=== PATIENT | male | born 1950 | race Caucasian/White ===

== ENCOUNTER → 2018-05-07 08:22 | Outpatient (CLI) | payer MEDICARE, OTHER, SELFPAY ==
[2018-05-07 10:17] LABS: Anion Gap 7 (5-15); BUN 9 mg/dL (7-18); Calcium,Total 8.6 mg/dL (8.5-10.1); Chloride 108 mmol/L (98-107); Cholesterol 149 mg/dL (200); EST Glomerular Filtration Rate 89 mL/min (>60); Est Glom Filt Rate - Afr Amer 108 mL/min (>60); Glucose 77 mg/dL (74-106); High Density Lipoprotein 71 mg/dL; Potassium 4.1 mmol/L (3.5-5.1); Sodium Level 140 mmol/L (136-145); Triglycerides 139 mg/dL; Uric Acid 4.2 mg/dL (3.5-7.2); Very Low Density Lipoprotein 28 mg/dL (5-40)
== END ==
PROVIDERS: Family Provider Family Medicine; PCP Family Medicine; Visit Provider Family Medicine
DX: I10 Essential (primary) hypertension (principal); E78.00 Pure hypercholesterolemia, unspecified; M10.9 Gout, unspecified
CPT/HCPCS: 36415; 80048; 80061; 84550

== ENCOUNTER → 2019-05-19 08:33 | Outpatient (CLI) | payer MEDICARE, OTHER, SELFPAY ==
[2019-05-19 11:22] LABS: Anion Gap 7 (5-15); BUN 12 mg/dL (7-18); Calcium,Total 8.9 mg/dL (8.5-10.1); Chloride 106 mmol/L (98-107); Cholesterol 156 mg/dL (200); EST Glomerular Filtration Rate 79 mL/min (>60); Est Glom Filt Rate - Afr Amer 95 mL/min (>60); Glucose 87 mg/dL (74-106); High Density Lipoprotein 63 mg/dL; PSA,Total - Annual Screen 0.66 ng/mL (0.00-4.00); Sodium Level 141 mmol/L (136-145); Triglycerides 153 mg/dL; Uric Acid 4.5 mg/dL (3.5-7.2); Very Low Density Lipoprotein 31 mg/dL (5-40)
== END ==
PROVIDERS: Family Provider Family Medicine; PCP Family Medicine; Referring Provider Family Medicine; Visit Provider Family Medicine
DX: I10 Essential (primary) hypertension (principal); E78.00 Pure hypercholesterolemia, unspecified; M10.9 Gout, unspecified; Z12.5 Encounter for screening for malignant neoplasm of prostate
CPT/HCPCS: 36415; 80048; 80061; 84153; 84550; G0103

== ENCOUNTER 2020-10-03 14:29 | Outpatient (RCR) | payer MEDICARE, OTHER, SELFPAY | END 2020-10-03 23:59 | LOC: IMMUN 14:29 | PROVIDERS: PCP Family Medicine; Visit Provider Family Medicine | DX: Z23 Encounter for immunization (principal) | CPT/HCPCS: 0011A; 0012A; 91301 ==

== ENCOUNTER → 2020-10-05 17:06 | Outpatient (CLI) | payer MEDICARE, OTHER, SELFPAY ==
--- NOTE | 2020-10-05 17:09 | RAD_ITS ---
STUDY: X-RAY CHEST REASON FOR EXAM: Male, 70 years old. CHEST PAIN TECHNIQUE: PA and lateral views of the chest. COMPARISON: None. FINDINGS: The lungs are clear and expanded. There is no demonstrated pleural abnormality. Normal size heart. Moderate-sized hiatal hernia. Normal visualized pulmonary arteries. Normal visualized aortic arch and descending thoracic aorta. Normal visualized thoracic spine. Normal visualized ribs, clavicles, and shoulders. There is no demonstrated abnormality of the visualized soft tissue structures of the upper abdomen. RAD/Chest PA and Lateral IMPRESSION: No active disease. Hiatal hernia. Electronically Signed: Dom Spear MD at 8:56 EST Tel , Service support ,
== END ==
PROVIDERS: PCP Family Medicine; Referring Provider Family Medicine; Visit Provider Family Medicine
DX: R07.9 Chest pain, unspecified (principal)
CPT/HCPCS: 71046

== ENCOUNTER → 2020-11-05 06:55 | Outpatient (CLI) | payer MEDICARE, OTHER, SELFPAY ==
[2020-10-19 09:03] VITALS: BMI 31.1
--- NOTE | 2020-11-05 06:56 | ECHOCS_ITS ---
Reason For Study: Chest Pain Procedure This was a 2D Doppler, Color Flow transthoracic echocardiogram. The study was technically difficult. Contrast injection was performed. Exam performed in department. Left Ventricle Normal LV size. Moderate concentric left ventricular hypertrophy. Left ventricular systolic function is normal. Stage 1 diastolic dysfunction. No regional wall motion abnormalities noted. Atria The left atrium is mildly enlarged. Normal right atrium. Aortic Valve Trisinus/trileaflet aortic valve. Mild focal aortic valve calcification. Great Vessels Normal aortic root. The pulmonary artery is normal size. Normal inferior vena cava. Pericardium/Pleural No pericardial effusion. Medication 22 gauge I.V. with prn adaptor inserted into right arm. Diluted definity 2.5ml given slow IV push to enhance endocardial definition. MMode/2D Measurements & Calculations LVIDd: 5.0 cm IVSd: 1.5 cm LA dimension: 3.5 cm LVIDs: 2.8 cm LVPWd: 1.2 cm FS: 44.3 % LAV(MOD-bp): 71.8 ml LA A4 area: 24.6 cm2 RA A4 area: 15.2 cm2 LAV(MOD-bp) Indexed: 31.3 ml/m2 LAV(MOD-sp2): 63.2 ml LAV(MOD-sp4): 73.7 ml Time Measurements MV dec time: 0.24 sec Doppler Measurements & Calculations MV E max valeriano: 84.2 cm/sec Lat Peak E' Valeriano: 9.2 cm/sec Med Peak E' Valeriano: 6.4 cm/sec MV A max valeriano: 113.2 cm/sec E/E' lat: 9.1 E/E' med: 13.2 MV E/A: 0.74 MV V2 max: 111.7 cm/sec MV P1/2t max valeriano: 92.5 cm/sec Ao V2 max: 166.6 cm/sec MV max P.0 mmHg MV P1/2t: 89.3 msec Ao max P.1 mmHg MV V2 mean: 60.5 cm/sec MV mean P.7 mmHg MV dec slope: 303.2 cm/sec2 MV V2 VTI: 32.2 cm MVA(P1/2t): 2.5 cm2 LV V1 max: 89.2 cm/sec PA V2 max: 79.0 cm/sec LV V1 max P.2 mmHg ECHO/Echo Complete W/ Contrast Interpretation Summary Normal LV size. Moderate concentric left ventricular hypertrophy. Left ventricular systolic function is normal. Stage 1 diastolic dysfunction. Contrast injection was performed. Ordering Physician: Juan C Frausto Referring Physician: Gómez Power Performed By: Jer Pierce RCS
--- NOTE | 2020-11-05 09:44 | STRESSREP ---
Stress Test Report Exercise myocardial perfusion stress test. 70-year-old man with a history of coronary artery disease and chest discomfort. Medications bisoprolol hydrochlorothiazide. Stress protocol: Resting EKG demonstrates sinus rhythm with a rate of 64 bpm and a right bundle branch block resting blood pressure is 160/90 mmHg. The patient exercised according to the regular Octavio protocol for a total duration of 4 minutes. The maximum heart rate attained was 131 bpm which was 87% of max impacted heart rate the maximum workload was 5.7 metabolic equivalents. The patient maintained sinus rhythm throughout the recording. At rest there were no ST or T wave changes noted to suggest ischemia at peak exercise upsloping ST changes were noted. At peak exercise the maximum blood pressure was 204/90 mmHg. This was a hypertensive response to exercise. The test was terminated due to dyspnea and fatigue. Myocardial perfusion protocol. 14.2 mCi of technetium 99m sestamibi was injected at rest. The patient exercised according to the regular Octavio protocol for 4 minutes and at peak exercise 44.1 mCi of technetium 99m sestamibi was injected stress images were obtained stress and rest images were reconstructed and compared in the short axis vertical long and horizontal long axis. Gated images were also obtained Perfusion SPECT analysis: Review of the stress images demonstrate normal uptake of tracer noted in all areas of the myocardium, the resting images demonstrate normal uptake of tracer in all areas of the myocardium. There were no stress or rest images to suggest ischemia. No previous infarct is noted. Gated SPECT analysis: The gated ejection fraction is 71%. Conclusion: Normal exercise myocardial perfusion stress test. Preserved ejection fraction. Low to moderate workload may affect sensitivity for detection of ischemia.
== END ==
PROVIDERS: PCP Family Medicine; Referring Provider Internal Medicine Cardiovascular Disease; Visit Provider Internal Medicine Cardiovascular Disease
DX: R07.9 Chest pain, unspecified (principal)
CPT/HCPCS: 78452; 93017; 93306; A9500; Q9957; A4216; C8929

== ENCOUNTER → 2021-02-12 09:04 | Outpatient (CLI) | payer MEDICARE, OTHER, SELFPAY ==
[2020-10-19 09:03] VITALS: BMI 31.1
[2021-02-12 10:40] LABS: ALB/GLOB Ratio 0.9 RATIO (0.9-2.4); AST(SGOT) 81 U/L (15-37); Alanine Aminotransfer ALT/SGPT 79 U/L (16-61); Albumin, Serum 3.5 g/dL (3.2-5.0); Alkaline Phosphatase 65 U/L (45-117); Anion Gap 6 (5-15); BUN 12 mg/dL (7-18); BUN/Creat Ratio 12.3 RATIO (10-20); Calcium,Total 8.9 mg/dL (8.5-10.1); Chloride 107 mmol/L (98-107); Cholesterol 165 mg/dL (200); Creatinine, Serum 0.98 mg/dL (0.70-1.30); EST Glomerular Filtration Rate 80 mL/min (>60); Est Glom Filt Rate - Afr Amer 97 mL/min (>60); Globulin 4.1 g/dL (2.2-4.2); Glucose 90 mg/dL (74-106); High Density Lipoprotein 62 mg/dL; PSA,Total - Annual Screen 0.44 ng/mL (0.00-4.00); Potassium 4.1 mmol/L (3.5-5.1); Protein, Total 7.6 g/dL (6.4-8.2); Sodium Level 140 mmol/L (136-145); Triglycerides 159 mg/dL; Very Low Density Lipoprotein 32 mg/dL (5-40)
== END ==
PROVIDERS: PCP Family Medicine; Visit Provider Family Medicine
DX: I10 Essential (primary) hypertension (principal); Z12.5 Encounter for screening for malignant neoplasm of prostate
CPT/HCPCS: 36415; 80053; 80061; 84153; G0103

== ENCOUNTER → 2021-02-18 11:01 | Outpatient (CLI) | payer MEDICARE, OTHER, SELFPAY ==
[2020-10-19 09:03] VITALS: BMI 31.1
[2021-02-19 05:07] LABS: HEPATITIS B SURFACE AG Negative (Negative); Hepatitis A AB, Total Negative (Negative); Hepatitis A IgM Antibody Negative (Negative); Hepatitis B Core AB IgM Negative (Negative); Hepatitis B Core Ab Total Negative (Negative); Hepatitis C Ab 0.2 s/co ratio (0.0-0.9)
[2021-02-19 09:28] LABS: Hep B Surface Antibodies Non Reactive (.)
== END ==
PROVIDERS: PCP Family Medicine; Referring Provider Family Medicine; Visit Provider Family Medicine
DX: R74.01 Elevation of levels of liver transaminase levels (principal)
CPT/HCPCS: 36415; 86704; 86705; 86706; 86708; 86709; 86803; 87340

== ENCOUNTER → 2021-02-20 09:19 | Outpatient (CLI) | payer MEDICARE, OTHER, SELFPAY ==
[2020-10-19 09:03] VITALS: BMI 31.1
--- NOTE | 2021-02-20 09:22 | US_ITS ---
STUDY: ABDOMINAL ULTRASOUND - RIGHT UPPER QUADRANT REASON FOR VISIT: Male, 70 years old Transaminitis TECHNIQUE: Ultrasound evaluation of the right upper quadrant was performed with real-time and static ordonez-scale imaging. TECHNICAL QUALITY: Adequate. COMPARISON: None. FINDINGS: Liver: The liver measures 15.8 cm. There is increased echogenicity consistent with fatty infiltration. Focal fatty sparing is seen adjacent to the gallbladder fossa. Tithe bile ducts are within normal limits. There is hepatic color flow. The direction of portal flow is hepatopetal. There is a 1.5 cm x 1.4 cm x 1 cm cyst in the posterior aspect of the left lobe of the liver. Gallbladder: Normal distended gallbladder. The gallbladder wall measures 1.8 mm. There is a negative sonographic Dixon''s sign. There is no pericholecystic fluid. There are no gallstones. Common Bile Duct (C.B.D.): The common bile duct measures 3.7 mm. Pancreas: Normal size of the head, body and tail of the pancreas. There is increased echogenicity of the pancreas. There is no demonstrated pancreatic mass or cyst. Right Kidney: Normal size of the right kidney. The right kidney measures 12.9 cm x 5.3 cm x 5.5 cm. Normal renal cortex. The right cortex measures 1.4 cm. There is no demonstrated renal mass or cyst. There is no right hydronephrosis. US/Abdomen Limited IMPRESSION: Fatty infiltration of the liver. 1.5 cm x 1.4 cm x 1 cm cyst in the posterior aspect of the left lobe of the liver. Electronically Signed: Matthew Mccartney MD at 14:21 EDT , Service support ,
== END ==
PROVIDERS: PCP Family Medicine; Referring Provider Family Medicine; Visit Provider Family Medicine
DX: R74.01 Elevation of levels of liver transaminase levels (principal)
CPT/HCPCS: 76705

== ENCOUNTER 2021-10-14 09:44 | Outpatient (CLI) | payer MEDICARE, OTHER, SELFPAY ==
[2021-10-14 15:23] LABS: Absolute Lymphocyte Count 1.51 X10^3/uL (0.83-4.51); Absolute Neutrophil Count 3.1 X10^3/uL (2.0-7.7); Basophil# 0.05 X10^3/uL; Basophil% 0.9 % (0-1); Eosinophil# 0.24 X10^3/uL; Eosinophils% 4.5 % (0-5); Hematocrit 50.9 % (40-54); Lymphocyte # 1.51 X10^3/ul (0.83-4.51); Lymphocyte % 28.2 % (19-41); Mean Corp Hgb Conc 33.4 g/dL (32-36); Mean Corpuscular Volume 104.7 fL (80-94); Mean Platelet Vol. 10.5 fl (6.2-12.0); Monocyte# 0.47 X10^3/uL; Monocyte% 8.8 % (0-10); NRBC Flagged by Analyzer 0 % (0-5); Neutrophil # 3.06 X10^3/uL (2.7-7.7); Platelet Count 180 K/mm3 (150-450); RBC Distribution Width CV 12.7 % (11.6-14.6); RBC Distribution Width SD 49.3 fl (35.1-43.9); Red Blood Count 4.86 M/mm3 (4.6-6.2); White Blood Count 5.4 K/mm3 (4.4-11.0)
[2021-10-14 15:39] LABS: ALB/GLOB Ratio 0.9 RATIO (0.9-2.4); AST(SGOT) 50 U/L (15-37); Alanine Aminotransfer ALT/SGPT 49 U/L (16-61); Albumin, Serum 3.7 g/dL (3.2-5.0); Alkaline Phosphatase 65 U/L (45-117); Anion Gap 3 (5-15); BUN 14 mg/dL (7-18); BUN/Creat Ratio 13.3 RATIO (10-20); Calcium,Total 8.8 mg/dL (8.5-10.1); Chloride 107 mmol/L (98-107); Cholesterol 157 mg/dL (200); Creatinine, Serum 1.05 mg/dL (0.70-1.30); EST Glomerular Filtration Rate 74 mL/min (>60); Est Glom Filt Rate - Afr Amer 89 mL/min (>60); Globulin 4.2 g/dL (2.2-4.2); Glucose 87 mg/dL (74-106); High Density Lipoprotein 62 mg/dL; Potassium 4.5 mmol/L (3.5-5.1); Protein, Total 7.9 g/dL (6.4-8.2); Sodium Level 139 mmol/L (136-145); Triglycerides 145 mg/dL; Very Low Density Lipoprotein 29 mg/dL (5-40)
== END 2021-10-14 23:59 | disposition home or self-care (01) ==
LOC: MFPLAB 09:46
PROVIDERS: PCP Family Medicine; Visit Provider Family Medicine
DX: E78.00 Pure hypercholesterolemia, unspecified (principal); I10 Essential (primary) hypertension
CPT/HCPCS: 36415; 80053; 80061; 85025

== ENCOUNTER → 2022-08-06 | Outpatient (CLI) | payer MEDICARE, OTHER, SELFPAY ==
[2022-08-06 10:29] LABS: Absolute Lymphocyte Count 1.91 X10^3/uL (0.83-4.51); Absolute Neutrophil Count 2.8 X10^3/uL (2.0-7.7); Basophil# 0.05 X10^3/uL; Basophil% 0.9 % (0-1); Eosinophil# 0.23 X10^3/uL; Eosinophils% 4.2 % (0-5); Hematocrit 50.5 % (40-54); Hemoglobin 17.2 g/dL (13.0-16.5); Lymphocyte # 1.91 X10^3/ul (0.83-4.51); Lymphocyte % 34.9 % (19-41); Mean Corp Hgb Conc 34.1 g/dL (32-36); Mean Corpuscular Hgb 35.1 pg (27.0-32.0); Mean Corpuscular Volume 103.1 fL (80-94); Mean Platelet Vol. 10.1 fl (6.2-12.0); Monocyte# 0.49 X10^3/uL; Monocyte% 8.9 % (0-10); NRBC Flagged by Analyzer 0 % (0-5); Neutrophil # 2.76 X10^3/uL (2.7-7.7); Neutrophil % 50.4 % (47-70); Platelet Count 211 K/mm3 (150-450); RBC Distribution Width CV 12.3 % (11.6-14.6); RBC Distribution Width SD 47.2 fl (35.1-43.9); White Blood Count 5.5 K/mm3 (4.4-11.0)
[2022-08-06 10:49] LABS: ALB/GLOB Ratio 0.9 RATIO (0.9-2.4); AST(SGOT) 40 U/L (15-37); Alanine Aminotransfer ALT/SGPT 46 U/L (16-61); Albumin, Serum 3.7 g/dL (3.2-5.0); Alkaline Phosphatase 67 U/L (45-117); Anion Gap 6 (5-15); BUN 13 mg/dL (7-18); BUN/Creat Ratio 12.6 RATIO (10-20); Calcium,Total 9.1 mg/dL (8.5-10.1); Chloride 106 mmol/L (98-107); Cholesterol 192 mg/dL (200); Creatinine, Serum 1.03 mg/dL (0.70-1.30); EST Glomerular Filtration Rate 75 mL/min (>60); Est Glom Filt Rate - Afr Amer 91 mL/min (>60); Globulin 3.9 g/dL (2.2-4.2); Glucose 91 mg/dL (74-106); High Density Lipoprotein 67 mg/dL; Potassium 4.3 mmol/L (3.5-5.1); Protein, Total 7.6 g/dL (6.4-8.2); Sodium Level 143 mmol/L (136-145); Triglycerides 172 mg/dL; Uric Acid 4.1 mg/dL (3.5-7.2); Very Low Density Lipoprotein 34 mg/dL (5-40)
[2022-08-06 10:51] LABS: Hemoglobin A1c 4.9 % (3.8-5.6)
[2022-08-06 11:01] LABS: Microalbumin:Creatinine Ratio 61.1 mg/g CRE (<30 mg/g CRE)
== END | disposition home or self-care (01) ==
LOC: MFPLAB 08:41
PROVIDERS: PCP Family Medicine; Referring Provider Family Medicine; Visit Provider Family Medicine
DX: M10.9 Gout, unspecified (principal); I10 Essential (primary) hypertension; E78.00 Pure hypercholesterolemia, unspecified; K76.0 Fatty (change of) liver, not elsewhere classified; E66.9 Obesity, unspecified
CPT/HCPCS: 36415; 80053; 80061; 82043; 82570; 83036; 84550; 85025

== ENCOUNTER → 2023-08-24 | Outpatient (CLI) | payer MEDICARE, OTHER, SELFPAY ==
--- OUTSIDE RECORDS SUMMARY | 2023-08-24 09:10 | XMS RPT_ITS | CCD ---
Author Name Unknown Address [address] [place] [address] Organization [facility] Care Team Providers Care Insole Coverer Name Role Phone Reid PEDRAZA, Sergey Hensley(Historical) Primary Care Provid er Unavailable Pretty Pino Attending Unavailable Rand Wong Attending Unavailable Pretty Pino Referring Unavailable Pretty Pino Attending Unavailable Rand Wong Referring Unavailable Medications Completed/Discontinued Medications Medication Drug Class(es) Dates Sig (Normalized) Sig (Original) allopurinol 300 mg oral tablet (3 sources) Xanthine Oxidase Inhibitor take 1 tablet by mouth once daily allopurinol (ZYLOPRIM) 300 mg tablet Take 300 mg by mouth once daily. 0 Active Problems Problem Classification Problem Date Documented Da te Episodic/Chronic Abdominal hernia (2 sources) Hiatal hernia; Translations: [Diaphragmatic hernia without obstruction or gangrene] Onset: 10-08-2022 Episodic Abdominal pain (3 sources) Abdominal discomfort; Translations: [Right upper quadrant pain] Onset: 10-01-2022 Episodic Esophageal disorders (3 sources) Gastro-esophageal reflux disease with esophagitis; Translations: [Gastroesophageal reflux disease with esophagitis without hemorrhage] Onset: 10-01-2022 Chronic Esophageal disorders (1 source) Esophageal disorders; Translations: [Gastroesophageal reflux disease with esophagitis without hemorrhage] Onset: 10-08-2022 Gastritis and duodenitis (2 sources) Erythematous gastropathy; Translations: [Gastritis, unspecified, without bleeding] Onset: 10-08-2022 Episodic Other screening for suspected conditions (not mental disorders or infectious disease) (5 sources) Patient encounter status; Translations: [Encounter for screening for malignant neoplasm of colon] Onset: 10-01-2022 Episodic Results Test Name Value Interpretation Reference Range Facil ity Vital Signs Date Time Vital Sign Value Performing Clinician Alan litmoses 10-08-2022 10:48-0500 Body temperature 97.9 [degF] Pretty Alvarez PA-C Work Phone: [facility] 10-08-2022 10:48-0500 Body weight 104.69 kg Pretty Manteca PA-C Work Phone: [facility] 10-08-2022 10:48-0500 Diastolic blood pressure 96 mm[Hg] Pretty Manteca PA-C Work Phone: [facility] 10-08-2022 10:48-0500 Heart rate 73 /min Pretty Alvarez PA-C Work Phone: [facility] 10-08-2022 10:48-0500 SaO2% (BldA) [Mass fraction] 99 % Pretty Alvarez PA-C Work Phone: [facility] 10-08-2022 10:48-0500 Systolic blood pressure 148 mm[Hg] Pretty Manteca PA-C Work Phone: [facility] 10-01-2022 13:48-0500 Diastolic blood pressure 95 mm[Hg] Rand Wong MD Work Phone: [facility] 10-01-2022 13:48-0500 Heart rate 65 /min Rand Wong MD Work Phone: [facility] 10-01-2022 13:48-0500 Respiratory rate 16 /min Rand Wong MD Work Phone: [facility] 10-01-2022 13:48-0500 SaO2% (BldA) [Mass fraction] 95 % Rand Wong MD Work Phone: [facility] 10-01-2022 13:48-0500 Systolic blood pressure 195 mm[Hg] Rand Wong MD Work Phone: [facility] 10-01-2022 11:33-0500 Body temperature 96.6 [degF] Rand Wong MD Work Phone: [facility] 10-01-2022 11:33-0500 Body weight 104.4 kg Rand Wong MD Work Phone: [facility] 09-03-2022 13:27-0500 Body height 185.4 cm Pretty Paganf PA-C Work Phone: [facility] 09-03-2022 13:27-0500 Body temperature 98.29 [degF] Prettyeugene Paganf PA-C Work Phone: [facility] 09-03-2022 13:27-0500 Body weight 104.42 kg Prettyeugene Paganf PA-C Work Phone: [facility] 09-03-2022 13:27-0500 Diastolic blood pressure 86 mm[Hg] Pretty Pino PA-C Work Phone: [facility] 09-03-2022 13:27-0500 Heart rate 64 /min Pretty Alvarez PA-C Work Phone: [facility] 09-03-2022 13:27-0500 SaO2% (BldA) [Mass fraction] 99 % Pretty Manteca PA-C Work Phone: [facility] 09-03-2022 13:27-0500 Systolic blood pressure 124 mm[Hg] Pretty Paganf PA-C Work Phone: [facility] Encounters Encounter Date Encounter Type Care Provider Facility Start: 10-08-2022 End: 10-09-2022 ambulatory Pretty Pino Facility:[facility] Start: 10-08-2022 End: 10-08-2022 Patient encounter procedure Pretty Pino PA-C Work Phone: General Surgery Procedures Date Procedure Procedure Detail Performing Clinician Start: 10-01-2022 Level iv surg pathology gross&microscopic exam Rand Wong MD Work Phone: Start: 10-01-2022 Esophagogastroduodenoscopy transoral diagnostic Pretty Pino PA-C Work Phone: Start: 10-01-2022 Colonoscopy flx dx w/collj spec when pfrmd Pretty Pino PA-C Work Phone: Start: 10-01-2022 Colonoscopy Pretty Pino PA-C Work Phone: Start: 05-21-2011 Colonoscopy Pretty Pino PA-C Work Phone: Plan of Treatment Date Care Activity Detail Author Start: 10-01-2023 Colonoscopy COLONOSCOPY [facility] Start: 10-01-2023 COLORECTAL CANCER SCREENING COLORECTAL CANCER SCREENING [facility] Start: 04-10-2023 Covid-19 Vaccine ( season) Covid-19 Vaccine ( season) [facility] Start: 04-10-2023 Influenza vaccination Influenza Vacc ine (#1) [facility] Start: 08-10-2022 ADVANCE DIRECTIVE DISCUSSION ADVANCE DIRECTIVE DISCUSSION [facility] Start: 08-10-2022 DEPRESSION ASSESSMENT DEPRESSION ASS ESSMENT [facility] Start: 05-21-2021 Colonoscopy COLONOSCOPY [facility] Start: 05-21-2021 COLORECTAL CANCER SCREENING COLORECTAL CANCER SCREENING [facility] Start: 2014 PNEUMOCOCCAL: 65+ (1 - PCV) PNEUMOCOCCAL: 65+ (1 - PCV) [facility] Start: 2009 RSV Vaccine (1 - 1-d ose 60+ series) RSV Vaccine (1 - 1-dose 60+ series) [facility] Start: 1999 SHINGRIX VACCINE (1 of 2) SHINGRIX V ACCINE (1 of 2) [facility] Start: 1994 COLOGUARD (FIT-DNA) COLOGUARD (FIT-D NA) [facility] Start: [address] COLONOGRAPHY [facility] Start: 1994 DIABETES SCREEN DIABETES SCREEN [facility] Start: 1994 Diabetes Screening Diabetes Screenin g [facility] Start: 1994 FECAL OCCULT BLOOD FECAL OCCULT BLOO D [facility] Start: 1994 SIGMOIDOSCOPY SIGMOIDOSCOPY [facility] Start: 1984 Lipid 1996 panel - S diomedes or Plasma Lipid Screening [facility] Start: 1984 LIPID SCREEN LIPID SCREEN [facility] Start: 1968 Urine microalbumin profile [facility] Start: 1967 HEPATITIS C SCREENING HEPATITIS C SC CELESTINE [facility] Start: 1950 ABDOMINAL AORTIC ANE URYSM SCREENING ABDOMINAL AORTIC ANEURYSM SCREENING [facility] Immunizations Immunization Date Immunization Notes Care Provider Fa cility 05-09-2022 influenza virus vacc ine, unspecified formulation Rand Wong MD Work Phone: [facility] Payers Date Payer Category Payer Medicare [id number] 2022 Medicare SELF 2022 Private Health Insurance [id number] 2014 Medicare MEDICARE MEDICAR E A AND B [id number] 2014-Present [phone] [place] [address] Medicare [id number] 2014 Medicare [id number] Social History Date Type Detail Facility Start: 09-03-2022 Tobacco smoking stat [facility] Never smoked tobacco [facility] Start: 09-03-2022 End: 10-01-2022 Tobacco use and exposure Smokeless tobacco non-user [facility] Start: 09-03-2022 Alcohol intake Current drinke r of alcohol (finding) [facility] Start: 1950 Sex Assigned At Not on file [facility] Start: 10-01-[address] [facility] End: 08-10-1988 History of tobacco use Current smoker [facility] End: 08-10-1988 History of tobacco use Cigarette Smoker [facility] Start: 09-03-2022 End: 10-01-2022 Cigarettes smoked current (pack per day) - Reported 1 [facility] Start: 10-01-2022 End: 10-08-2022 Alcohol intake Ex-drinker (finding) [facility] Start: 10-01-2022 Alcohol Comment 1-2 beers a day [facility] Start: 09-03-2022 End: 10-01-2022 Tobacco use panel [facility] National Score (1-10 0), lower number is lower risk 34 [facility] Clinical Notes 09-03-2022 to 10-08-2022 Patient InstructionsPretty Pino PA-C - 10/08/2022 10:59 AM Gloria Johnson RN - 10/01/2022 1:18 PM ElizabethJuan FranciscoGloria, JOSIE - 10/01/2022 12:21 PM Elizabeth GloriaJOSIE oconnor - 10/01/2022 12:15 PM EST Note Date & Type Note Facility 10-08-2022 Note HNO ID: [id number] Author: Pretty Pino PA-C Service: ? Author Type: Physician Choral Director Type: Progress Notes Filed: 10/08/2022 12:41 PM Note Text: FOLLOW UP VISIT - ENDOSCOPY NAME: Lorna Jeo [facility] NO.: [id number] DATE OF SERVICE: 10/08/2022 : 1950 REFERRING PHYSICIAN: Sergey Hensley(Historical) MD Reid (Inactive) Lorna is a patient I am following for screening colonoscopy as well as some upper abdominal discomfort for which EGD was recommended at same setting. Dr. Wong performed upper and lower endoscopy on 10/01/22. The patient was found to have a small hiatal hernia, normal first and second portions of duodenum, and erythematous mucosa of antrum. Pathology demonstrated: FINAL DIAGNOSIS A. Stomach, antrum, biopsy: - Gastric antral and oxyntic mucosa with reactive gastropathy. - No morphologic evidence of Helicobacter pylori organisms (see comment). B. Esophagogastric junction, biopsy: - Focal active esophagitis with reactive epithelial changes (see comment). Diagnosis Comment A. Immunohistochemical stain for Helicobacter pylori will be performed on block A1 and reported in an addendum. B. Due to the presence of focal active esophagitis, immunohistochemical stains for CMV, HSV I/II, and stain for PAS/D will be performed on block B1 and reported in an addendum. Gross Description A. ANTRUM (STOMACH) BIOPSY Received in formalin are two pieces of sarkar, soft tissue aggregating to 0.7 x 0.3 x 0.2 cm. Totally submitted in one cassette. B. ESOPHAGOGASTRIC JUNCTION BIOPSY Received in formalin is one piece of sarkar, soft tissue measuring 0.3 x 0.2 x 0.1 cm. Totally submitted in one cassette. October 02, 2022 1:30 AM Gross examination performed at [facility], [facility] [id number] Performing Lab Diagnostic interpretation performed at [facility], [address] [id number] CLIA# [id number] Pilot Control Operator Helper: Subhash Garcia M.D. Addendum A. Immunohistochemical stain for Helicobacter pylori was performed on block A1 and is negative. B. Immunohistochemical stains for CMV, HSV I/II, and stain for PAS/D were performed on block B1 and are negative for viral inclusions and fungal organisms, respectively. The patient notes no abdominal complaints since the procedure. Did have issues with BP spiking very high day of colonoscopy and states it persisted for 2-3 days after. Has upcoming follow-up with PCP VITALS: Blood pressure 148/96, pulse 73, temperature 36.6 ?C (97.9 ?F), weight 104.7 kg (230 lb 12.8 oz), SpO2 99 %. General: patient is alert, cooperative, pleasant and in no acute distress On examination, the abdomen is benign. Assessment IMPRESSION: GERD with esophagitis. Colonoscopy with suboptimal bowel prep, no obvious masses PLAN: Follow up with PCP regarding BP issues The operative findings and pathology report were reviewed with the patient, and the patient has had the opportunity to ask questions and have questions answered. If the patient notes any problems or changes in bowel function, the patient should contact me immediately. Otherwise I recommend follow up endoscopy in 1-2 years based on bowel prep. HM updated and recall letter generated. Continue PPI for now and follow up with PCP to discuss whether this may be discontinued after 2 months Dietary and lifestyle modifications as discussed Patient verbalized understanding of all above and agreed with the plan Diagnoses: (K21.00) Gastroesophageal reflux disease with esophagitis without hemorrhage (primary encounter diagnosis) (K29.70) Erythematous gastropathy (K44.9) Hiatal hernia I spent a total of 23 minutes on the date of the service which included preparing to see the patient, [id number] patient care, completing clinical documentation, obtaining and/or reviewing separately obtained history, counseling and educating the patient/family/caregiver, independently interpreting results (not separately reported), and communicating results to the patient/family/caregiver. Pretty Pino PA-C [facility] 10-08-2022 Instructions Pretty Pino PA-C - 10/08/2022 11:19 AM EST -Follow up with PCP for blood pressure The following instructions are important for you related to your office visit today with the [facility]. INSTRUCTIONS FOLLOWING A NORMAL COLONOSCOPY I discussed with you the findings of your colonoscopy. No worrisome abnormalities were noted, however due to suboptimal bowel prep the surgeon has recommended a repeat colonoscopy in 1-2 years. Will consider a split bowel prep regimen at that time INSTRUCTIONS FOR PEPTIC ULCER DISEASE - ESOPHAGITIS I discussed with you the findings of your upper endoscopy. Your upper endoscopy demonstrated esophagitis Esophagitis may be a form of peptic irritation, with acid moving from the stomach to the esophagus (gastroesophageal reflux) Factors that increase acid production include smoking and stress. If you smoke, stopping smoking will often cure these issues without needing other medications. Over the counter medications including antiacids and acid reducing medications including H2 blockers (Zantac and the like) and proton pump inhibitors (prilosec, prevacid and the like) neutralize or prevent acid production. Prescription strength proton pump inhibitors (PPIs) may be necessary if your symptoms persist. Carafate may be added to PPI treatment in refractory cases. Avoiding smoking, alcohol and antiinflammatory medications are important in the successful treatment of reflux esophagitis and peptic diseases. Other factors that contribute to GERD and esophagitis are being overweight, eating large meals before laying down and certain foods. Weight loss will help improve many GERD complaints. Remaining upright after eating large meals and having a small supper will also help symptoms. Avoiding food that contribute to reflux - chocolate, caffeine, cheddar cheese may also help. Follow up upper endoscopy may be recommended to assure healing of the esophagus. New or worsening symptoms such are epigastric pain, burning, difficulty swallowing or food sticking should be relayed to your physician. Feeling full early after eating, or black, tarry, foul smelling stools are also worrisome. If you have any difficulties or concerns, you should contact our office immediately. If you note any additional difficulties, questions, or concerns, you should contact our office immediately @ [phone] and ask to be transferred to the General Surgery department. documented in this encounter [facility] 10-08-2022 History of Present illness Narrative FOLLOW UP VISIT - [facility] NO.: [id number] DATE OF SERVICE: 10/08/2022 : 1950 REFERRING PHYSICIAN: Sergey Hensley(Historical) MD Reid (Inactive) Lorna is a patient I am following for screening colonoscopy as well as some upper abdominal discomfort for which EGD was recommended at same setting. Dr. Wong performed upper and lower endoscopy on 10/01/22. The patient was found to have a small hiatal hernia, normal first and second portions of duodenum, and erythematous mucosa of antrum. Pathology demonstrated: FINAL DIAGNOSIS A. Stomach, antrum, biopsy: - Gastric antral and oxyntic mucosa with reactive gastropathy. - No morphologic evidence of Helicobacter pylori organisms (see comment). B. Esophagogastric junction, biopsy: - Focal active esophagitis with reactive epithelial changes (see comment). Diagnosis Comment A. Immunohistochemical stain for Helicobacter pylori will be performed on block A1 and reported in an addendum. B. Due to the presence of focal active esophagitis, immunohistochemical stains for CMV, HSV I/II, and stain for PAS/D will be performed on block B1 and reported in an addendum. Gross Description A. ANTRUM (STOMACH) BIOPSY Received in formalin are two pieces of sarkar, soft tissue aggregating to 0.7 x 0.3 x 0.2 cm. Totally submitted in one cassette. B. ESOPHAGOGASTRIC JUNCTION BIOPSY Received in formalin is one piece of sarkar, soft tissue measuring 0.3 x 0.2 x 0.1 cm. Totally submitted in one cassette. SS October 02, 2022 1:30 AM Gross examination performed at [facility], [address] [place] [address] Performing Lab Diagnostic interpretation performed at [facility], [address] [facility] [address] CLIA# [id number] Pilot Control Operator Helper: Subhash Garcia M.D. Addendum A. Immunohistochemical stain for Helicobacter pylori was performed on block A1 and is negative. B. Immunohistochemical stains for CMV, HSV I/II, and stain for PAS/D were performed on block B1 and are negative for viral inclusions and fungal organisms, respectively. The patient notes no abdominal complaints since the procedure. Did have issues with BP spiking very high day of colonoscopy and states it persisted for 2-3 days after. Has upcoming follow-up with PCP VITALS: Blood pressure 148/96, pulse 73, temperature 36.6 C (97.9 F), weight 104.7 kg (230 lb 12.8 oz), SpO2 99 %. General: patient is alert, cooperative, pleasant and in no acute distress On examination, the abdomen is benign. Assessment IMPRESSION: GERD with esophagitis. Colonoscopy with suboptimal bowel prep, no obvious masses PLAN: Follow up with PCP regarding BP issues The operative findings and pathology report were reviewed with the patient, and the patient has had the opportunity to ask questions and have questions answered. If the patient notes any problems or changes in bowel function, the patient should contact me immediately. Otherwise I recommend follow up endoscopy in 1-2 years based on bowel prep. HM updated and recall letter generated. Continue PPI for now and follow up with PCP to discuss whether this may be discontinued after 2 months Dietary and lifestyle modifications as discussed Patient verbalized understanding of all above and agreed with the plan Diagnoses: (K21.00) Gastroesophageal reflux disease with esophagitis without hemorrhage (primary encounter diagnosis) (K29.70) Erythematous gastropathy (K44.9) Hiatal hernia I spent a total of 23 minutes on the date of the service which included preparing to see the patient, [id number] patient care, completing clinical documentation, obtaining and/or reviewing separately obtained history, counseling and educating the patient/family/caregiver, independently interpreting results (not separately reported), and communicating results to the patient/family/caregiver. Pretty Pino PA-C documented in this encounter [facility] 10-01-2022 Note HNO ID: [id number] Author: Gloria Johnson RN Service: ? Author Type: Registered Nurse Type: Nursing Progress Note Filed: 10/01/2022 12:22 PM Note Text: Dr Wong aware of most recent bp is 203/103, will plan to proceed with procedure. [facility] 10-01-2022 Nurse Note Patient received in phase II via cart left lateral position, eyes closed but open to verbal stimuli, skin warm and dry, respirations regular and unlabored, denies abdominal pain or nausea. Resting comfortably on left side. Dr Wong aware of most recent bp is 203/103, will plan to proceed with procedure. Dr Wong notified most recent bp 190/96, has been given 500ml of Lactated Ringers, ok to proceed with procedure, ordered to keep IV flowing wide open until procedure. remains at bedside. Patient's initial bp's elevated pre procedure, 211/100 initially, after resting after changing clothes remains 202/100. Dr Wong here to see patient at bedside, aware of high bp's, reviewed home med list, pt took bp med at 8:[address] Wong said to start IV and bolus with fluid, will monitor. documented in this encounter [facility] 10-01-2022 History and physical note UPDATED PROCEDURAL SEDATION HISTORY AND PHYSICAL EXAMINATION SERVICE DATE: 10/01/2022 SERVICE TIME: 12:29 PHYSICAL EXAM MUST BE COMPLETED ON ADMISSION PROCEDURE: EGD and colonoscopy, pssible biopsies Procedure Indications: acid reflux, screening for colon cancer The History and Physical (completed in the past 30 days) has been reviewed and the patient has been examined. The contents accurately reflect the patient's condition with the following additions or revisions since the H&P was completed. ASA Class: ASA Class:: Patient with mild systemic disease Examination indicates no changes. AIRWAY: Airway Visualization of Uvula: Yes Mouth opening greater than 2 fingerbreadths: Yes Neck Full Range of Motion: Yes LUNGS: Lungs clear to auscultation CARDIAC: Regular rhythm,Regular rate Provisional Diagnosis/Treatment Plan: EGD and colonoscopy, possible biopsies SEDATION GOAL: Moderate This H&P can be found in the Electronic Medical Record . SIGNATURE: Rand Wong MD PATIENT NAME: Lorna Vigil DATE: October 01, 2022 TIME: 12:31 PM Source Note - Rand Wong MD - 10/01/2022 11:45 AM EST HISTORY AND PHYSICAL Lorna Vigil 1950 REFERRING PHYSICIAN: Sergey Mathews(Historica* CHIEF COMPLAINT: Consult (Colonoscopy/ EGD) HPI: The patient is a 72 year old male referred for endoscopy. Lorna notes no colon complaints. Patient denies any change in bowel habits, weight changes, blood in stools, black tarry stools or abdominal pain. Denies family history of colon issues. The patient NOTES upper abdominal discomfort, worse with spicy foods and with larger meals. Notes some improvement with Tums and omeprazole, as well as with water. Lorna has undergone prior endoscopy. Last colonoscopy 05/21/[address] Gillette under conscious sedation with no concerning findings. Patient denies chest pain, shortness of breath or recent hospitalizations. Denies problems with sedation in the past/ PAST MEDICAL HISTORY PAST MEDICAL HISTORY Diagnosis Date Generalized anxiety disorder Gout HTN (hypertension) Hypercholesterolemia Melanoma (HCC) Obesity PAST SURGICAL HISTORY PAST SURGICAL HISTORY Procedure Laterality Date COLONOSCOPY FLX DX W/COLLJ SPEC WHEN PFRMD 05/21/2011 Colonoscopy MELANOMA OF SKIN EXCISION SYN RPT skin excision of melanoma PAST SURGICAL HISTORY OF bilatteral lasix eye surgery TONSILLECTOMY & ADENOIDECTOMY <AGE 11 CURRENT MEDICATIONS Current Outpatient Medications Medication Sig LORazepam (ATIVAN) 0.5 mg Take 0.5 mg by mouth daily at bedtime. allopurinol (ZYLOPRIM) 300 mg tablet Take 300 mg by mouth once daily. [id number] 75 mg-3 %- 3 % KGtd omeprazole (PRILOSEC) 40 mg capsule Take 20 mg by mouth once daily. bisoprolol 10 mg ORAL tablet Take 6.5 mg by mouth once daily. No current facility-administered medications for this visit. ALLERGIES: Patient has no allergy information on record. PERSONAL HISTORY: SOCIAL HISTORY Social History Tobacco Use Smoking status: Never Smokeless tobacco: Never Vaping Use Vaping Use: Never used Substance Use Topics Alcohol use: Yes Drug use: No FAMILY HISTORY: FAMILY HISTORY FAMILY HISTORY Problem Relation Age of Onset Breast Cancer Sister Heart Father REVIEW OF SYMPTOMS: The review of systems data was entered by the nurse and reviewed by ri Nursing Notes: Elsie Zavala LPN 09/03/2022 2:23 PM Signed REVIEW OF SYSTEMS: General: The patient denies fatigue, denies weight loss, denies weight gain, denies feeling hot, and denies feelings of cold. Eyes: The patient denies glaucoma, denies eye injury/surgery, does not wear glasses or contacts. Ear/Nose/Throat: The patient denies allergies, denies hayfever, denies ear infections, and denies bloody noses. Cardiovascular: The patient denies chest pain, denies heart disease, NOTES high blood pressure,denies cardiac stent, denies prior heart attack, denies irregular heart beat, denies high cholesterol, denies poor circulation, denies heart failure, other cardiac issues, denies claudication, denies cold feet, denies peripheral arterial stent. Respiratory: The patient denies tuberculosis, denies pneumonia, denies frequent cough, denies pulmonary embolism, denies shortness of breath, and denies coughing up blood. Gastrointestinal: The patient NOTES difficulty swallowing, NOTES acid reflux, denies ulcers, denies vomiting, denies jaundice/hepatitis, denies gallbladder problems, denies black or tarry stools, NOTES hemorrhoids, denies bleeding from rectum, denies diverticulitis, denies constipation, denies diarrhea, denies loss of stool control, and denies hernias. Kidney/Bladder: The patient NOTES kidney stones, denies urine infections, and denies bloody urine. Skin: The patient NOTES a history of skin cancer, denies bleeding/changing moles, and NOTES a history of skin rash. Neurologic: The patient denies a history of epilepsy/convulsions, NOTES headaches, denies head/spinal injuries, and denies stroke/TIA. Psychiatric: The patient denies psychiatric medications, NOTES depression, and denies voices, denies substance abuse. Endocrine: The patient denies thyroid disorders, denies diabetes, and denies hormonal problems. Hematologic: The patient denies a history of bruising, denies bleeding, and denies anemia, NOTES blood clots. Infections: The patient NOTES a history of measles and mumps, denies rheumatic fever, and denies sexually transmitted diseases. Musculoskeletal: The patient denies back pain/injury, denies back problems, denies sciatica, denies knee/foot trouble, NOTES arthritis, or NOTES gout. When was patient's last Mammogram screening? N/A Last Colonoscopy: 2010 Elsie Zavala LPN I have confirmed and edited as necessary, the PFSH and ROS obtained by others. Pretty Pino PA-C PHYSICAL EXAMINATION: General: The patient is 72 year old male, well nourished, well hydrated in no acute distress. The patient is oriented to time, place, and person. VITALS: Blood pressure 124/86, pulse 64, temperature 36.8 C (98.3 F), height 185.4 cm (6' 1 ), weight 104.4 kg (230 lb 3.2 oz), SpO2 99 %. Body mass index is 30.37 kg/m . HEENT: Normal cephalic, ataumatic, pupils are equally round, sclera are anicteric, mucous membranes are moist, oropharynx is clear. Neck has no masses, asymmetry or lymphadenopathy. Respiratory: Clear to auscultation and percussion. Normal respiratory excursion and pattern. Cardiac: Examination is regular rate and rhythm. Normal S1/S2 Abdominal exam: Soft, nontender, with no palpable masses. No hepatosplenomegaly. No palpable hernias. Extremities: no clubbing, cyanosis or edema. No adenopathy. LABORATORY VALUES: As Noted RADIOLOGIC STUDIES: As Noted Assessment IMPRESSION: encounter for screening colonoscopy. Upper abdominal discomfort and history of esophageal spasms-recommend EGD in addition to colonoscopy PLAN: I have reviewed my findings with the surgeon. Will plan for upper and lower endoscopy. We discussed the risks and benefits of the planned endoscopy. I have informed the patient that complications can occur including failure to complete the endoscopy and perforation. The patient had the opportunity to ask questions concerning the planned endoscopy. My staff has also explained the procedure to the patient in understandable terms and has given the patient printed material concerning the procedure. The patient freely consents to surgery. The patient was offered a surgery/procedure at a [facility] facility. I have counseled the patient regarding the risk of exposure to and/or potential harm posed by the COVID-19 virus with having a surgery/procedure at this time versus the risk of delaying the surgery/procedure. It is not possible to know either the risk of delaying the surgery or procedure or chance of getting an infection with perfect accuracy, but a joint decision was made between the patient and myself to proceed at this time with endoscopy. I plan to use Golytely bowel preparation I have explained to the patient the difference between IV conscious sedation and MAC anesthesia - and I have offered either, according to the patient's wishes. I have explained that with IV conscious sedation there is no anesthesia provider available and therefore there is a limitation of the amount of IV medications that can be given and that the patient may wake up in the middle of the procedure and/or experience pain/discomfort during the procedure. Further discussion was done and the patient was given the opportunity to ask questions and all questions were answered. The patient chooses IV conscious sedation Medication list includes ativan-per patient only takes this on rare occasions Diagnoses: (Z12.11) Encounter for screening for malignant neoplasm of colon (primary encounter diagnosis) (R10.11, R10.12) Bilateral upper abdominal discomfort Consultation requested by Dr. Mathews for an opinion regarding need for EGD and colonoscopy. My final recommendations will be communicated back to the requesting physician by way of shared Medical record or letter to requesting physician via [place] mail. Pretty Pino PA-C HISTORY AND PHYSICAL Lorna Vigil 1950 REFERRING PHYSICIAN: Sergey Mathews([facility]* CHIEF COMPLAINT: Consult (Colonoscopy/ EGD) HPI: The patient is a 72 year old male referred for endoscopy. Lorna notes no colon complaints. Patient denies any change in bowel habits, weight changes, blood in stools, black tarry stools or abdominal pain. Denies family history of colon issues. The patient NOTES upper abdominal discomfort, worse with spicy foods and with larger meals. Notes some improvement with Tums and omeprazole, as well as with water. Lorna has undergone prior endoscopy. Last colonoscopy 05/21/[address] Gillette under conscious sedation with no concerning findings. Patient denies chest pain, shortness of breath or recent hospitalizations. Denies problems with sedation in the past/ PAST MEDICAL HISTORY PAST MEDICAL HISTORY Diagnosis Date Generalized anxiety disorder Gout HTN (hypertension) Hypercholesterolemia Melanoma (HCC) Obesity PAST SURGICAL HISTORY PAST SURGICAL HISTORY Procedure Laterality Date COLONOSCOPY FLX DX W/COLLJ SPEC WHEN PFRMD 05/21/2011 Colonoscopy MELANOMA OF SKIN EXCISION SYN RPT skin excision of melanoma PAST SURGICAL HISTORY OF bilatteral lasix eye surgery TONSILLECTOMY & ADENOIDECTOMY <AGE 11 CURRENT MEDICATIONS Current Outpatient Medications Medication Sig LORazepam (ATIVAN) 0.5 mg Take 0.5 mg by mouth daily at bedtime. allopurinol (ZYLOPRIM) 300 mg tablet Take 300 mg by mouth once daily. ydhukbctgf-nxxwfkn-eddqbgx 75 mg-3 %- 3 % KGtd omeprazole (PRILOSEC) 40 mg capsule Take 20 mg by mouth once daily. bisoprolol 10 mg ORAL tablet Take 6.5 mg by mouth once daily. No current facility-administered medications for this visit. ALLERGIES: Patient has no allergy information on record. PERSONAL HISTORY: SOCIAL HISTORY Social History Tobacco Use Smoking status: Never Smokeless tobacco: Never Vaping Use Vaping Use: Never used Substance Use Topics Alcohol use: Yes Drug use: No FAMILY HISTORY: FAMILY HISTORY FAMILY HISTORY Problem Relation Age of Onset Breast Cancer Sister Heart Father REVIEW OF SYMPTOMS: The review of systems data was entered by the nurse and reviewed by ri Nursing Notes: Elsie Zavala LPN 09/03/2022 2:23 PM Signed REVIEW OF SYSTEMS: General: The patient denies fatigue, denies weight loss, denies weight gain, denies feeling hot, and denies feelings of cold. Eyes: The patient denies glaucoma, denies eye injury/surgery, does not wear glasses or contacts. Ear/Nose/Throat: The patient denies allergies, denies hayfever, denies ear infections, and denies bloody noses. Cardiovascular: The patient denies chest pain, denies heart disease, NOTES high blood pressure,denies cardiac stent, denies prior heart attack, denies irregular heart beat, denies high cholesterol, denies poor circulation, denies heart failure, other cardiac issues, denies claudication, denies cold feet, denies peripheral arterial stent. Respiratory: The patient denies tuberculosis, denies pneumonia, denies frequent cough, denies pulmonary embolism, denies shortness of breath, and denies coughing up blood. Gastrointestinal: The patient NOTES difficulty swallowing, NOTES acid reflux, denies ulcers, denies vomiting, denies jaundice/hepatitis, denies gallbladder problems, denies black or tarry stools, NOTES hemorrhoids, denies bleeding from rectum, denies diverticulitis, denies constipation, denies diarrhea, denies loss of stool control, and denies hernias. Kidney/Bladder: The patient NOTES kidney stones, denies urine infections, and denies bloody urine. Skin: The patient NOTES a history of skin cancer, denies bleeding/changing moles, and NOTES a history of skin rash. Neurologic: The patient denies a history of epilepsy/convulsions, NOTES headaches, denies head/spinal injuries, and denies stroke/TIA. Psychiatric: The patient denies psychiatric medications, NOTES depression, and denies voices, denies substance abuse. Endocrine: The patient denies thyroid disorders, denies diabetes, and denies hormonal problems. Hematologic: The patient denies a history of bruising, denies bleeding, and denies anemia, NOTES blood clots. Infections: The patient NOTES a history of measles and mumps, denies rheumatic fever, and denies sexually transmitted diseases. Musculoskeletal: The patient denies back pain/injury, denies back problems, denies sciatica, denies knee/foot trouble, NOTES arthritis, or NOTES gout. When was patient's last Mammogram screening? N/A Last Colonoscopy: 2010 Elsie Zavala LPN I have confirmed and edited as necessary, the PFSH and ROS obtained by others. Pretty Pino PA-C PHYSICAL EXAMINATION: General: The patient is 72 year old male, well nourished, well hydrated in no acute distress. The patient is oriented to time, place, and person. VITALS: Blood pressure 124/86, pulse 64, temperature 36.8 C (98.3 F), height 185.4 cm (6' 1 ), weight 104.4 kg (230 lb 3.2 oz), SpO2 99 %. Body mass index is 30.37 kg/m . HEENT: Normal cephalic, ataumatic, pupils are equally round, sclera are anicteric, mucous membranes are moist, oropharynx is clear. Neck has no masses, asymmetry or lymphadenopathy. Respiratory: Clear to auscultation and percussion. Normal respiratory excursion and pattern. Cardiac: Examination is regular rate and rhythm. Normal S1/S2 Abdominal exam: Soft, nontender, with no palpable masses. No hepatosplenomegaly. No palpable hernias. Extremities: no clubbing, cyanosis or edema. No adenopathy. LABORATORY VALUES: As Noted RADIOLOGIC STUDIES: As Noted Assessment IMPRESSION: encounter for screening colonoscopy. Upper abdominal discomfort and history of esophageal spasms-recommend EGD in addition to colonoscopy PLAN: I have reviewed my findings with the surgeon. Will plan for upper and lower endoscopy. We discussed the risks and benefits of the planned endoscopy. I have informed the patient that complications can occur including failure to complete the endoscopy and perforation. The patient had the opportunity to ask questions concerning the planned endoscopy. My staff has also explained the procedure to the patient in understandable terms and has given the patient printed material concerning the procedure. The patient freely consents to surgery. The patient was offered a surgery/procedure at a [facility] facility. I have counseled the patient regarding the risk of exposure to and/or potential harm posed by the COVID-19 virus with having a surgery/procedure at this time versus the risk of delaying the surgery/procedure. It is not possible to know either the risk of delaying the surgery or procedure or chance of getting an infection with perfect accuracy, but a joint decision was made between the patient and myself to proceed at this time with endoscopy. I plan to use Golytely bowel preparation I have explained to the patient the difference between IV conscious sedation and MAC anesthesia - and I have offered either, according to the patient's wishes. I have explained that with IV conscious sedation there is no anesthesia provider available and therefore there is a limitation of the amount of IV medications that can be given and that the patient may wake up in the middle of the procedure and/or experience pain/discomfort during the procedure. Further discussion was done and the patient was given the opportunity to ask questions and all questions were answered. The patient chooses IV conscious sedation Medication list includes ativan-per patient only takes this on rare occasions Diagnoses: (Z12.11) Encounter for screening for malignant neoplasm of colon (primary encounter diagnosis) (R10.11, R10.12) Bilateral upper abdominal discomfort Consultation requested by Dr. Mathews for an opinion regarding need for EGD and colonoscopy. My final recommendations will be communicated back to the requesting physician by way of shared Medical record or letter to requesting physician via [place] mail. Pretty Pino PA-C documented in this encounter [facility] 09-03-2022 Note HNO ID: [id number] Author: Pretty Pino PA-C Service: ? Author Type: Physician Choral Director Type: Progress Notes Filed: 09/04/2022 12:36 PM Note Text: HISTORY AND PHYSICAL Lorna Joe Musa 1950 REFERRING PHYSICIAN: Sergey Mathews([facility]* CHIEF COMPLAINT: Consult (Colonoscopy/ EGD) HPI: The patient is a 72 year old male referred for endoscopy. Lorna notes no colon complaints. Patient denies any change in bowel habits, weight changes, blood in stools, black tarry stools or abdominal pain. Denies family history of colon issues. The patient NOTES upper abdominal discomfort, worse with spicy foods and with larger meals. Notes some improvement with Tums and omeprazole, as well as with water. Lorna has undergone prior endoscopy. Last colonoscopy 05/21/[address] Gillette under conscious sedation with no concerning findings. Patient denies chest pain, shortness of breath or recent hospitalizations. Denies problems with sedation in the past/ PAST MEDICAL HISTORY Diagnosis Date Generalized anxiety disorder Gout HTN (hypertension) Hypercholesterolemia Melanoma (HCC) Obesity PAST SURGICAL HISTORY Procedure Laterality Date COLONOSCOPY FLX DX W/COLLJ SPEC WHEN PFRMD 05/21/2011 Colonoscopy MELANOMA OF SKIN EXCISION SYN RPT skin excision of melanoma PAST SURGICAL HISTORY OF bilatteral lasix eye surgery TONSILLECTOMY AND ADENOIDECTOMY Current Outpatient Medications Medication Sig LORazepam (ATIVAN) 0.5 mg Take 0.5 mg by mouth daily at bedtime. allopurinol (ZYLOPRIM) 300 mg tablet Take 300 mg by mouth once daily. eucpuvrbfg-vztqzph-wwbrwyi 75 mg-3 %- 3 % KGtd omeprazole (PRILOSEC) 40 mg capsule Take 20 mg by mouth once daily. bisoprolol 10 mg ORAL tablet Take 6.5 mg by mouth once daily. No current facility-administered medications for this visit. ALLERGIES: Patient has no allergy information on record. PERSONAL HISTORY: Social History Tobacco Use Smoking status: Never Smokeless tobacco: Never Vaping Use Vaping Use: Never used Substance Use Topics Alcohol use: Yes Drug use: No FAMILY HISTORY: FAMILY HISTORY Problem Relation Age of Onset Breast Cancer Sister Heart Father REVIEW OF SYMPTOMS: The review of systems data was entered by the nurse and reviewed by ri Nursing Notes: Elsie Zavala LPN 09/03/2022 2:23 PM Signed REVIEW OF SYSTEMS: General: The patient denies fatigue, denies weight loss, denies weight gain, denies feeling hot, and denies feelings of cold. Eyes: The patient denies glaucoma, denies eye injury/surgery, does not wear glasses or contacts. Ear/Nose/Throat: The patient denies allergies, denies hayfever, denies ear infections, and denies bloody noses. Cardiovascular: The patient denies chest pain, denies heart disease, NOTES high blood pressure,denies cardiac stent, denies prior heart attack, denies irregular heart beat, denies high cholesterol, denies poor circulation, denies heart failure, other cardiac issues, denies claudication, denies cold feet, denies peripheral arterial stent. Respiratory: The patient denies tuberculosis, denies pneumonia, denies frequent cough, denies pulmonary embolism, denies shortness of breath, and denies coughing up blood. Gastrointestinal: The patient NOTES difficulty swallowing, NOTES acid reflux, denies ulcers, denies vomiting, denies jaundice/hepatitis, denies gallbladder problems, denies black or tarry stools, NOTES hemorrhoids, denies bleeding from rectum, denies diverticulitis, denies constipation, denies diarrhea, denies loss of stool control, and denies hernias. Kidney/Bladder: The patient NOTES kidney stones, denies urine infections, and denies bloody urine. Skin: The patient NOTES a history of skin cancer, denies bleeding/changing moles, and NOTES a history of skin rash. Neurologic: The patient denies a history of epilepsy/convulsions, NOTES headaches, denies head/spinal injuries, and denies stroke/TIA. Psychiatric: The patient denies psychiatric medications, NOTES depression, and denies voices, denies substance abuse. Endocrine: The patient denies thyroid disorders, denies diabetes, and denies hormonal problems. Hematologic: The patient denies a history of bruising, denies bleeding, and denies anemia, NOTES blood clots. Infections: The patient NOTES a history of measles and mumps, denies rheumatic fever, and denies sexually transmitted diseases. Musculoskeletal: The patient denies back pain/injury, denies back problems, denies sciatica, denies knee/foot trouble, NOTES arthritis, or NOTES gout. When was patient's last Mammogram screening? N/A Last Colonoscopy: 2010 Elsie Zavala LPN I have confirmed and edited as necessary, the PFSH and ROS obtained by others. Pretty Pino PA-C PHYSICAL EXAMINATION: General: The patient is 72 year old male, well nourished, well hydrated in no acute distress. The patient is oriented to time, place, and person. VIT (more content not included)... [facility] 09-03-2022 Nurse Note REVIEW OF SYSTEMS: General: The patient denies fatigue, denies weight loss, denies weight gain, denies feeling hot, and denies feelings of cold. Eyes: The patient denies glaucoma, denies eye injury/surgery, does not wear glasses or contacts. Ear/Nose/Throat: The patient denies allergies, denies hayfever, denies ear infections, and denies bloody noses. Cardiovascular: The patient denies chest pain, denies heart disease, NOTES high blood pressure,denies cardiac stent, denies prior heart attack, denies irregular heart beat, denies high cholesterol, denies poor circulation, denies heart failure, other cardiac issues, denies claudication, denies cold feet, denies peripheral arterial stent. Respiratory: The patient denies tuberculosis, denies pneumonia, denies frequent cough, denies pulmonary embolism, denies shortness of breath, and denies coughing up blood. Gastrointestinal: The patient NOTES difficulty swallowing, NOTES acid reflux, denies ulcers, denies vomiting, denies jaundice/hepatitis, denies gallbladder problems, denies black or tarry stools, NOTES hemorrhoids, denies bleeding from rectum, denies diverticulitis, denies constipation, denies diarrhea, denies loss of stool control, and denies hernias. Kidney/Bladder: The patient NOTES kidney stones, denies urine infections, and denies bloody urine. Skin: The patient NOTES a history of skin cancer, denies bleeding/changing moles, and NOTES a history of skin rash. Neurologic: The patient denies a history of epilepsy/convulsions, NOTES headaches, denies head/spinal injuries, and denies stroke/TIA. Psychiatric: The patient denies psychiatric medications, NOTES depression, and denies voices, denies substance abuse. Endocrine: The patient denies thyroid disorders, denies diabetes, and denies hormonal problems. Hematologic: The patient denies a history of bruising, denies bleeding, and denies anemia, NOTES blood clots. Infections: The patient NOTES a history of measles and mumps, denies rheumatic fever, and denies sexually transmitted diseases. Musculoskeletal: The patient denies back pain/injury, denies back problems, denies sciatica, denies knee/foot trouble, NOTES arthritis, or NOTES gout. When was patient's last Mammogram screening? N/A Last Colonoscopy: 2010 Elsie Zavala LPN documented in this encounter [facility] 09-03-2022 History of Present illness Narrative HISTORY AND PHYSICAL Lonra Vigil 1950 REFERRING PHYSICIAN: Sergey Mathews([facility]* CHIEF COMPLAINT: Consult (Colonoscopy/ EGD) HPI: The patient is a 72 year old male referred for endoscopy. Lorna notes no colon complaints. Patient denies any change in bowel habits, weight changes, blood in stools, black tarry stools or abdominal pain. Denies family history of colon issues. The patient NOTES upper abdominal discomfort, worse with spicy foods and with larger meals. Notes some improvement with Tums and omeprazole, as well as with water. Lorna has undergone prior endoscopy. Last colonoscopy 05/21/[address] Gillette under conscious sedation with no concerning findings. Patient denies chest pain, shortness of breath or recent hospitalizations. Denies problems with sedation in the past/ PAST MEDICAL HISTORY Diagnosis Date Generalized anxiety disorder Gout HTN (hypertension) Hypercholesterolemia Melanoma (HCC) Obesity PAST SURGICAL HISTORY Procedure Laterality Date COLONOSCOPY FLX DX W/COLLJ SPEC WHEN PFRMD 05/21/2011 Colonoscopy MELANOMA OF SKIN EXCISION SYN RPT skin excision of melanoma PAST SURGICAL HISTORY OF bilatteral lasix eye surgery TONSILLECTOMY & ADENOIDECTOMY <AGE 11 Current Outpatient Medications Medication Sig LORazepam (ATIVAN) 0.5 mg Take 0.5 mg by mouth daily at bedtime. allopurinol (ZYLOPRIM) 300 mg tablet Take 300 mg by mouth once daily. bidjyshyeg-feqzbro-rvuowjg 75 mg-3 %- 3 % KGtd omeprazole (PRILOSEC) 40 mg capsule Take 20 mg by mouth once daily. bisoprolol 10 mg ORAL tablet Take 6.5 mg by mouth once daily. No current facility-administered medications for this visit. ALLERGIES: Patient has no allergy information on record. PERSONAL HISTORY: Social History Tobacco Use Smoking status: Never Smokeless tobacco: Never Vaping Use Vaping Use: Never used Substance Use Topics Alcohol use: Yes Drug use: No FAMILY HISTORY: FAMILY HISTORY Problem Relation Age of Onset Breast Cancer Sister Heart Father REVIEW OF SYMPTOMS: The review of systems data was entered by the nurse and reviewed by ri Nursing Notes: Elsie Zavala LPN 09/03/2022 2:23 PM Signed REVIEW OF SYSTEMS: General: The patient denies fatigue, denies weight loss, denies weight gain, denies feeling hot, and denies feelings of cold. Eyes: The patient denies glaucoma, denies eye injury/surgery, does not wear glasses or contacts. Ear/Nose/Throat: The patient denies allergies, denies hayfever, denies ear infections, and denies bloody noses. Cardiovascular: The patient denies chest pain, denies heart disease, NOTES high blood pressure,denies cardiac stent, denies prior heart attack, denies irregular heart beat, denies high cholesterol, denies poor circulation, denies heart failure, other cardiac issues, denies claudication, denies cold feet, denies peripheral arterial stent. Respiratory: The patient denies tuberculosis, denies pneumonia, denies frequent cough, denies pulmonary embolism, denies shortness of breath, and denies coughing up blood. Gastrointestinal: The patient NOTES difficulty swallowing, NOTES acid reflux, denies ulcers, denies vomiting, denies jaundice/hepatitis, denies gallbladder problems, denies black or tarry stools, NOTES hemorrhoids, denies bleeding from rectum, denies diverticulitis, denies constipation, denies diarrhea, denies loss of stool control, and denies hernias. Kidney/Bladder: The patient NOTES kidney stones, denies urine infections, and denies bloody urine. Skin: The patient NOTES a history of skin cancer, denies bleeding/changing moles, and NOTES a history of skin rash. Neurologic: The patient denies a history of epilepsy/convulsions, NOTES headaches, denies head/spinal injuries, and denies stroke/TIA. Psychiatric: The patient denies psychiatric medications, NOTES depression, and denies voices, denies substance abuse. Endocrine: The patient denies thyroid disorders, denies diabetes, and denies hormonal problems. Hematologic: The patient denies a history of bruising, denies bleeding, and denies anemia, NOTES blood clots. Infections: The patient NOTES a history of measles and mumps, denies rheumatic fever, and denies sexually transmitted diseases. Musculoskeletal: The patient denies back pain/injury, denies back problems, denies sciatica, denies knee/foot trouble, NOTES arthritis, or NOTES gout. When was patient's last Mammogram screening? N/A Last Colonoscopy: 2010 Elsie Zavala LPN I have confirmed and edited as necessary, the PFSH and ROS obtained by others. Pretty Pino PA-C PHYSICAL EXAMINATION: General: The patient is 72 year old male, well nourished, well hydrated in no acute distress. The patient is oriented to time, place, and person. VITALS: Blood pressure 124/86, pulse 64, temperature 36.8 C (98.3 F), height 185.4 cm (6' 1 ), weight 104.4 kg (230 lb 3.2 oz), SpO2 99 %. Body mass index is 30.37 kg/m . HEENT: Normal cephalic, ataumatic, pupils are equally round, sclera are anicteric, mucous membranes are moist, oropharynx is clear. Neck has no masses, asymmetry or lymphadenopathy. Respiratory: Clear to auscultation and percussion. Normal respiratory excursion and pattern. Cardiac: Examination is regular rate and rhythm. Normal S1/S2 Abdominal exam: Soft, nontender, with no palpable masses. No hepatosplenomegaly. No palpable hernias. Extremities: no clubbing, cyanosis or edema. No adenopathy. LABORATORY VALUES: As Noted RADIOLOGIC STUDIES: As Noted Assessment IMPRESSION: encounter for screening colonoscopy. Upper abdominal discomfort and history of esophageal spasms-recommend EGD in addition to colonoscopy PLAN: I have reviewed my findings with the surgeon. Will plan for upper and lower endoscopy. We discussed the risks and benefits of the planned endoscopy. I have informed the patient that complications can occur including failure to complete the endoscopy and perforation. The patient had the opportunity to ask questions concerning the planned endoscopy. My staff has also explained the procedure to the patient in understandable terms and has given the patient printed material concerning the procedure. The patient freely consents to surgery. The patient was offered a surgery/procedure at a [facility] facility. I have counseled the patient regarding the risk of exposure to and/or potential harm posed by the COVID-19 virus with having a surgery/procedure at this time versus the risk of delaying the surgery/procedure. It is not possible to know either the risk of delaying the surgery or procedure or chance of getting an infection with perfect accuracy, but a joint decision was made between the patient and myself to proceed at this time with endoscopy. I plan to use Golytely bowel preparation I have explained to the patient the difference between IV conscious sedation and MAC anesthesia - and I have offered either, according to the patient's wishes. I have explained that with IV conscious sedation there is no anesthesia provider available and therefore there is a limitation of the amount of IV medications that can be given and that the patient may wake up in the middle of the procedure and/or experience pain/discomfort during the procedure. Further discussion was done and the patient was given the opportunity to ask questions and all questions were answered. The patient chooses IV conscious sedation Medication list includes ativan-per patient only takes this on rare occasions Diagnoses: (Z12.11) Encounter for screening for malignant neoplasm of colon (primary encounter diagnosis) (R10.11, R10.12) Bilateral upper abdominal discomfort Consultation requested by Dr. Mathews for an opinion regarding need for EGD and colonoscopy. My final recommendations will be communicated back to the requesting physician by way of shared Medical record or letter to requesting physician via US mail. Pretty Pino PA-C documented in this encounter [facility] Diagnosis Gastroesophageal reflux disease with esophagitis without hemorrhage- Primary Erythematous gastropathy Unspecified gastritis and gastroduodenitis without mention of hemorrhage Hiatal hernia Diaphragmatic hernia without mention of obstruction or gangrene [facility] Diagnosis Screening for colon cancer- Primary Special screening for malignant neoplasms, colon Special screening for malignant neoplasms, colon Upper abdominal pain Abdominal pain, other specified site Gastroesophageal reflux disease, unspecified whether esophagitis present documented in this encounter [facility] for referral (narrative)* Outpatient Procedure (Routine) - Closed Specialty Diagnoses / Procedures Referred By [facility] Referred To Contact [facility] Diagnoses Special screening for malignant neoplasms, colon Upper abdominal pain Gastroesophageal reflux disease, unspecified whether esophagitis present Procedures EGD DIAGNOSTIC ESOPHAGOGASTRODUODENOSC OPY TRANSORAL DIAGNOSTIC Pretty Pino PA-C [address] [place] [phone] [place] [id number] Referral ID Status Reason Start Date Expiration Date V isits Requested Visits Authorized [id number] Closed Auto-Generate d Referral 09/03/2022 09/03/2023 1 1 * Outpatient Procedure (Routine) - Closed Specialty Diagnoses / Procedures Referred By Timothy harris Referred To Contact [facility] Diagnoses Special screening for malignant neoplasms, colon Upper abdominal pain Gastroesophageal reflux disease, unspecified whether esophagitis present Procedures COLONOSCOPY SCREENING COLONOSCOPY FLX DX W/COLLJ SPEC WHEN PFRMD Pretty Pino PA-C [address] [place] [phone] [place] [id number] Referral ID Status Reason Start Date Expiration Date V isits Requested Visits Authorized [id number] Closed Auto-Generate d Referral 09/03/2022 09/03/2023 1 1 [facility] for visit Narrative* Outpatient Procedure (Routine) - Closed Specialty Diagnoses / Procedures Referred By Timothy harris Referred To Contact [facility] Diagnoses Special screening for malignant neoplasms, colon Upper abdominal pain Gastroesophageal reflux disease, unspecified whether esophagitis present Procedures EGD DIAGNOSTIC ESOPHAGOGASTRODUODENOSC OPY TRANSORAL DIAGNOSTIC Pretty Pino PA-C [address] [place] [address] [facility] [address] [place] [address] Referral ID Status Reason Start Date Expiration Date V isits Requested Visits Authorized [id number] Closed Auto-Generate d Referral 09/03/2022 09/03/2023 1 1 [facility] Summary Purpose Family History No Family History Records Found Advance Directives No Advanced Directives Records Found Medications Administered Section Inactive Administered Medications - up to 3 most recent administrations Medication Order MAR Action Action Date Dose Rate Site benzocaine 20% 1 [place] (TOPEX) 1 [place], TOPICAL, DIRECTED, Starting on Thu10/01/22 at 1330, Until Thu10/01/22 at 1729, DOSING DIRECTED BY PHYSICIAN FOR PROCEDURAL SEDATION ONLY - Pharmaceutical Waste: Aerosol -, Intraprocedure Given 10/01/2022 12:32 PM EST 5 Sprays diphenhydrAMINE 12.5-50 mg injection (BENADRYL) 12.5-50 mg, INTRAVENOUS, DIRECTED, Starting on Thu10/01/22 at 1330, Until Thu10/01/22 at 1729, DOSING DIRECTED BY PHYSICIAN FOR PROCEDURAL SEDATION ONLY, Intraprocedure Given 10/01/2022 12:34 PM EST 50 mg fentaNYL 50 mcg/mL 25-100 mcg injection (SUBLIMAZE) 25-100 mcg, INTRAVENOUS, DIRECTED, Starting on Thu10/01/22 at 1330, Until Thu10/01/22 at 1729, DOSING DIRECTED BY PHYSICIAN FOR PROCEDURAL SEDATION ONLY, Intraprocedure Given 10/01/2022 1:01 PM EST 50 mcg Additional Source Comments Source Comments (unrecognize d section and content) In the event this informatio n is protected by the Federal Confidentiality of Alcohol and Drug Abuse Patient Records regulations: The Federal rules restrict any use of the information to criminally investigate or prosecute any alcohol or drug abuse patient.[facility] the event this information is protected by the Federal Confidentiality of Alcohol and Drug Abuse Patient Records regulations: The Federal rules restrict any use of the information to criminally investigate or prosecute any alcohol or drug abuse patient.[facility] the event this information is protected by the Federal Confidentiality of Alcohol and Drug Abuse Patient Records regulations: The Federal rules restrict any use of the information to criminally investigate or prosecute any alcohol or drug abuse patient.[facility] Reason for Visit (unrecogniz ed section and content) Reason Comments Follow Up EGD and colonoscopy follow up Care Teams (unrecognized sec tion and content) Insole Coverer Relationship Specialty Start Date End Date Sergey Mathews(Historical)MD PCP - General Family Medicine 08/26/22 Insole Coverer Relationship Specialty Start Date End Date Sergey Mathews(Historical), PCP - General Family Medicine 08/26/22 (unrecognized sect ion and content) No Status Records Found INFORMATION SOURCE (unrecogn ized section and content) FOR RECORDS PERTAINING TO PATIENTS WHO ARE OR HAVE BEEN ENROLLED IN A CHEMICAL DEPENDENCY/SUBSTANCEABUSE PROGRAM, SOME INFORMATION MAY BE OMITTED. This clinical summary was aggregated from multiple sources. Caution should be exercised in using it in the provision of clinical care. This summary normalizes information from multiple sources, and as a consequence, information in this document may materially change the coding, format and clinical context of patient data. In addition, data may be omitted in some cases. CLINICAL DECISIONS SHOULD BE BASED ON THE PRIMARY CLINICAL RECORDS. [facility] [employer] [facility]. provides no warranty or guarantee of the accuracy or completeness of information in this document.
[2023-08-24 09:57] LABS: Absolute Neutrophil Count 2.3 X10^3/uL (2.0-7.7); Basophil# 0.06 X10^3/uL; Basophil% 1.2 % (0-1); Eosinophil# 0.35 X10^3/uL; Hematocrit 48.1 % (40-54); Hemoglobin 16.5 g/dL (13.0-16.5); Lymphocyte % 36.1 % (19-41); Mean Corp Hgb Conc 34.3 g/dL (32-36); Mean Corpuscular Hgb 35.5 pg (27.0-32.0); Mean Corpuscular Volume 103.4 fL (80-94); Mean Platelet Vol. 10.2 fl (6.2-12.0); Monocyte# 0.46 X10^3/uL; Monocyte% 9.2 % (0-10); NRBC Flagged by Analyzer 0 % (0-5); Neutrophil # 2.29 X10^3/uL (2.7-7.7); Neutrophil % 46.1 % (47-70); Platelet Count 188 K/mm3 (150-450); RBC Distribution Width CV 12.4 % (11.6-14.6); Red Blood Count 4.65 M/mm3 (4.6-6.2)
[2023-08-24 11:50] LABS: ALB/GLOB Ratio 0.9 RATIO (0.9-2.4); AST(SGOT) 51 U/L (15-37); Alanine Aminotransfer ALT/SGPT 54 U/L (16-61); Albumin, Serum 3.6 g/dL (3.2-5.0); Alkaline Phosphatase 65 U/L (45-117); Anion Gap 5 (5-15); BUN 11 mg/dL (7-18); BUN/Creat Ratio 10.4 RATIO (10-20); Calcium,Total 9.1 mg/dL (8.5-10.1); Chloride 109 mmol/L (98-107); Cholesterol 173 mg/dL (200); Creatinine, Serum 1.06 mg/dL (0.70-1.30); EST Glomerular Filtration Rate 73 mL/min (>60); Est Glom Filt Rate - Afr Amer 88 mL/min (>60); GGTP 207 U/L (15-85); Globulin 4.1 g/dL (2.2-4.2); Glucose 91 mg/dL (74-106); High Density Lipoprotein 66 mg/dL; PSA,Total - Annual Screen 0.94 ng/mL (0.00-4.00); Potassium 4.6 mmol/L (3.5-5.1); Protein, Total 7.7 g/dL (6.4-8.2); Sodium Level 141 mmol/L (136-145); Triglycerides 172 mg/dL; Very Low Density Lipoprotein 34 mg/dL (5-40)
== END | disposition home or self-care (01) ==
LOC: MFPLAB 08:49
PROVIDERS: PCP Family Medicine; Visit Provider Family Medicine
DX: Z12.5 Encounter for screening for malignant neoplasm of prostate (principal); I10 Essential (primary) hypertension; K76.0 Fatty (change of) liver, not elsewhere classified; E66.9 Obesity, unspecified; Z68.31 Body mass index [BMI] 31.0-31.9, adult
CPT/HCPCS: 36415; 80053; 80061; 82043; 82977; 84153; 85025; G0103

== ENCOUNTER → 2023-08-26 | Outpatient (CLI) | payer MEDICARE, OTHER, SELFPAY ==
--- OUTSIDE RECORDS SUMMARY | 2023-08-26 15:13 | XMS RPT_ITS | CCD ---
Author Name Unknown Address [address] [place] [address] Organization [facility] Care Team Providers Care Pick Up Name Role Phone Reid PEDRAZA, Sergey Hensley(Historical) [...] 97.9 [degF] Pretty Alvarez PA-C Work Phone: [facility] 10-08-2022 10:48-0500 Body weight 104.69 kg Pretty Velva PA-C Work Phone: [facility] 10-08-2022 10:48-0500 Diastolic blood pressure 96 mm[Hg] Pretty Velva PA-C Work Phone: [facility] 10-08-2022 10:48-0500 Heart rate 73 /min Pretty Alvarez PA-C Work Phone: [facility] 10-08-2022 10:48-0500 SaO2% (BldA) [Mass fraction] 99 % Pretty Alvarez PA-C Work Phone: [facility] 10-08-2022 10:48-0500 Systolic blood pressure 148 mm[Hg] Pretty Velva PA-C Work Phone: [facility] 10-01-2022 13:48-0500 Diastolic blood pressure 95 mm[Hg] Rand Wong MD Work Phone: [facility] 10-01-2022 13:48-0500 Heart rate 65 /min Rand Wong MD Work Phone: [facility] 10-01-2022 13:48-0500 Respiratory rate 16 /min Radn Wong MD Work Phone: [facility] 10-01-2022 13:48-0500 SaO2% (BldA) [Mass fraction] 95 % Rand Wong MD Work Phone: [facility] 10-01-2022 13:48-0500 Systolic blood pressure 195 mm[Hg] Rand Wong MD Work Phone: [facility] 10-01-2022 11:33-0500 Body temperature 96.6 [degF] Rand Wong MD Work Phone: [facility] 10-01-2022 11:33-0500 Body weight 104.4 kg Rand Wong MD Work Phone: [facility] 09-03-2022 13:27-0500 Body height 185.4 cm Pretty Paganf PA-C Work Phone: [facility] 09-03-2022 13:27-0500 Body temperature 98.29 [degF] Prettyeugene Paganf PA-C Work Phone: [facility] 09-03-2022 13:27-0500 Body weight 104.42 kg Prettyeugene aPganf PA-C Work Phone: [facility] 09-03-2022 13:27-0500 Diastolic blood pressure 86 mm[Hg] Pretty Pino PA-C Work Phone: [facility] 09-03-2022 13:27-0500 Heart rate 64 /min Pretty Alvarez PA-C Work Phone: [facility] 09-03-2022 13:27-0500 SaO2% (BldA) [Mass fraction] 99 % Pretty Velva PA-C Work Phone: [facility] 09-03-2022 13:27-0500 Systolic blood pressure 124 mm[Hg] Pretty Paganf PA-C Work Phone: [facility] Encounters Encounter Date Encounter Type Care Provider Facility Start: 10-08-2022 End: 10-09-2022 ambulatory Pretty Pino Facility:[facility] Start: 10-08-2022 End: 10-08-2022 Patient encounter procedure [...] Activity Detail Author Start: 10-01-2023 Colonoscopy COLONOSCOPY [facility] Start: 10-01-2023 COLORECTAL CANCER SCREENING COLORECTAL CANCER SCREENING [facility] Start: 04-10-2023 Covid-19 Vaccine ( season) Covid-19 Vaccine ( season) [facility] Start: 04-10-2023 Influenza vaccination Influenza Vacc ine (#1) [facility] Start: 08-10-2022 ADVANCE DIRECTIVE DISCUSSION ADVANCE DIRECTIVE DISCUSSION [facility] Start: 08-10-2022 DEPRESSION ASSESSMENT DEPRESSION ASS ESSMENT [facility] Start: 05-21-2021 Colonoscopy COLONOSCOPY [facility] Start: 05-21-2021 COLORECTAL CANCER SCREENING COLORECTAL CANCER SCREENING [facility] Start: 2014 PNEUMOCOCCAL: 65+ (1 - PCV) PNEUMOCOCCAL: 65+ (1 - PCV) [facility] Start: 2009 RSV Vaccine (1 - 1-d ose 60+ series) RSV Vaccine (1 - 1-dose 60+ series) [facility] Start: 1999 SHINGRIX VACCINE (1 of 2) SHINGRIX V ACCINE (1 of 2) [facility] Start: 1994 COLOGUARD (FIT-DNA) COLOGUARD (FIT-D NA) [facility] Start: [address] COLONOGRAPHY [facility] Start: 1994 DIABETES SCREEN DIABETES SCREEN [facility] Start: 1994 Diabetes Screening Diabetes Screenin g [facility] Start: 1994 FECAL OCCULT BLOOD FECAL OCCULT BLOO D [facility] Start: 1994 SIGMOIDOSCOPY SIGMOIDOSCOPY [facility] Start: 1984 Lipid 1996 panel - S diomedes or Plasma Lipid Screening [facility] Start: 1984 LIPID SCREEN LIPID SCREEN [facility] Start: 1968 Urine microalbumin profile [facility] Start: 1967 HEPATITIS C SCREENING HEPATITIS C SC CELESTINE [facility] Start: 1949 ABDOMINAL AORTIC ANE URYSM SCREENING ABDOMINAL AORTIC ANEURYSM SCREENING [facility] Immunizations Immunization Date Immunization Notes Care Provider Fa cility 05-09-2022 influenza virus vacc ine, unspecified formulation Rand Wong MD Work Phone: [facility] Payers Date Payer Category Payer Medicare [id number] 2022 Medicare SELF 2022 Private Health Insurance [id number] 2014 Medicare MEDICARE MEDICAR E A AND B [id number] 2014-Present [phone] [place] [place] [address] Medicare [id number] 2014 Medicare [id number] Social History Date Type Detail Facility Start: 09-03-2022 Tobacco smoking stat [facility] Never smoked tobacco [facility] Start: 09-03-2022 End: 10-01-2022 Tobacco use and exposure Smokeless tobacco non-user [facility] Start: 09-03-2022 Alcohol intake Current drinke r of alcohol (finding) [facility] Start: 1950 Sex Assigned At Not on file C [facility] Start: 10-01-2022 [facility] End: 08-10-1988 History of tobacco use Current smoker [facility] End: 08-10-1988 History of tobacco use Cigarette Smoker [facility] Start: 09-03-2022 End: 10-01-2022 Cigarettes smoked current (pack per day) - Reported 1 [facility] Start: 10-01-2022 End: 10-08-2022 Alcohol intake Ex-drinker (finding) [facility] Start: 10-01-2022 Alcohol Comment 1-2 beers a day [facility] Start: 09-03-2022 End: 10-01-2022 Tobacco use panel [facility] National Score (1-10 0), lower number is lower risk 34 [facility] Clinical Notes 09-03-2022 to 10-08-2022 Patient InstructionsPretty Pino PA-C - 10/08/2022 10:59 AM Gloria Johnson RN - 10/01/2022 1:18 PM ElizabethJuan FranciscoGloria, JOSIE - 10/01/2022 12:21 PM Elizabeth GloriaJOSIE oconnor - 10/01/2022 12:15 PM EST Note Date & Type Note Facility 10-08-2022 Note HNO ID: [id number] Author: Pretty Pino PA-C Service: ? Author Type: Physician Resort Desk Clerk Type: Progress Notes Filed: 10/08/2022 12:41 PM Note Text: FOLLOW UP VISIT - ENDOSCOPY NAME: Lorna Joe [facility] NO.: [id number] DATE OF SERVICE: 10/08/2022 : 1950 REFERRING [...] 2022 1:30 AM Gross examination performed at [facility], [facility] [id number] Performing Lab Diagnostic interpretation performed at [facility], [address] [id number] CLIA# [id number] [employer]: Subhash Garcia M.D. Addendum A. Immunohistochemical stain [...] which included preparing to see the patient, [id number] patient care, completing clinical documentation, obtaining and/or reviewing separately obtained history, counseling and educating the patient/family/caregiver, independently interpreting results (not separately reported), and communicating results to the patient/family/caregiver. Pretty Pino PA-C [facility] 10-08-2022 Instructions Pretty Pino PA-C - 10/08/2022 11:19 AM EST -Follow up with PCP for blood pressure The following instructions are important for you related to your office visit today with the [facility] General Surgeons. INSTRUCTIONS FOLLOWING A NORMAL COLONOSCOPY [...] you should contact our office immediately @ [phone] and ask to be transferred to the General Surgery department. documented in this encounter [facility] 10-08-2022 History of Present illness Narrative FOLLOW UP VISIT - END[facility] [id number] DATE OF SERVICE: 10/08/2022 : 1950 REFERRING [...] 2022 1:30 AM Gross examination performed at [facility], [address] [place] [address] Performing Lab Diagnostic interpretation performed at [facility], [address] [facility] [address] CLIA# [id number] [employer]: Subhash Garcia M.D. Addendum A. Immunohistochemical stain [...] which included preparing to see the patient, [id number] patient care, completing clinical documentation, obtaining and/or reviewing separately obtained history, counseling and educating the patient/family/caregiver, independently interpreting results (not separately reported), and communicating results to the patient/family/caregiver. Pretty Pino PA-C documented in this encounter [facility] 10-01-2022 Note HNO ID: [id number] Author: Gloria Johnson RN Service: ? Author Type: Registered Nurse Type: Nursing Progress Note Filed: 10/01/2022 12:22 PM Note Text: Dr Wong aware of most recent bp is 203/103, will plan to proceed with procedure. [facility] 10-01-2022 Nurse Note Patient received in phase [...] fluid, will monitor. documented in this encounter [facility] 10-01-2022 History and physical note UPDATED PROCEDURAL [...] Take 300 mg by mouth once daily. ugivbdbvtl-nqsydxl-sakqzxx 75 mg-3 %- 3 % KGtd omeprazole [...] entered by the nurse and reviewed by wi Nursing Notes: Elsie Zavala LPN 09/03/2022 2:23 [...] patient was offered a surgery/procedure at a [facility] facility. I have counseled the patient regarding [...] Take 300 mg by mouth once daily. htjcqydwrh-tgiinld-doxvlms 75 mg-3 %- 3 % KGtd omeprazole [...] entered by the nurse and reviewed by wi Nursing Notes: Elsie Zavala LPN 09/03/2022 2:23 [...] patient was offered a surgery/procedure at a [facility] facility. I have counseled the patient regarding [...] Pretty Pino PA-C documented in this encounter [facility] 09-03-2022 Note HNO ID: [id number] Author: Pretty Pino PA-C Service: ? Author Type: Physician Resort Desk Clerk Type: Progress Notes Filed: 09/04/2022 12:36 PM [...] Take 300 mg by mouth once daily. zsvrcmjswt-fjkarxb-jfzsfva 75 mg-3 %- 3 % KGtd omeprazole [...] entered by the nurse and reviewed by wi Nursing Notes: Elsie Zavala LPN 09/03/2022 2:23 [...] and person. VIT (more content not included)... [facility] 09-03-2022 Nurse Note REVIEW OF SYSTEMS: General: [...] Elsie Zavala LPN documented in this encounter [facility] 09-03-2022 History of Present illness Narrative HISTORY AND PHYSICAL Lorna Vigil 1950 REFERRING [...] Take 300 mg by mouth once daily. dcqakczopm-epquvvx-skrdhdy 75 mg-3 %- 3 % KGtd omeprazole [...] entered by the nurse and reviewed by wi Nursing Notes: Elsie Zavala LPN 09/03/2022 2:23 [...] patient was offered a surgery/procedure at a [facility] facility. I have counseled the patient regarding [...] Pretty Pino PA-C documented in this encounter [facility] Diagnosis Gastroesophageal reflux disease with esophagitis without hemorrhage- Primary Erythematous gastropathy Unspecified gastritis and gastroduodenitis without mention of hemorrhage Hiatal hernia Diaphragmatic hernia without mention of obstruction or gangrene [facility] Diagnosis Screening for colon cancer- Primary Special screening for malignant neoplasms, colon Special screening for malignant neoplasms, colon Upper abdominal pain Abdominal pain, other specified site Gastroesophageal reflux disease, unspecified whether esophagitis present documented in this encounter [facility] for referral (narrative)* Outpatient Procedure (Routine) - Closed Specialty Diagnoses / Procedures Referred By [facility] Referred To Contact [facility] Diagnoses Special screening for malignant neoplasms, colon Upper abdominal pain Gastroesophageal reflux disease, unspecified whether esophagitis present Procedures EGD DIAGNOSTIC ESOPHAGOGASTRODUODENOSC OPY TRANSORAL DIAGNOSTIC Pretty Pino PA-C [address] [place] [id number] [place] [id number] Referral ID Status Reason Start Date Expiration Date V isits Requested Visits Authorized [id number] Closed Auto-Generate d Referral 09/03/2022 09/03/2023 1 1 * Outpatient Procedure (Routine) - Closed Specialty Diagnoses / Procedures Referred By Timothy harris Referred To Contact [facility] Diagnoses Special screening for malignant neoplasms, colon Upper abdominal pain Gastroesophageal reflux disease, unspecified whether esophagitis present Procedures COLONOSCOPY SCREENING COLONOSCOPY FLX DX W/COLLJ SPEC WHEN PFRMD Pretty Pino PA-C [address] [place] [id number] [place] [id number] Referral ID Status Reason Start Date Expiration Date V isits Requested Visits Authorized [id number] Closed Auto-Generate d Referral 09/03/2022 09/03/2023 1 1 [facility] for visit Narrative* Outpatient Procedure (Routine) - Closed Specialty Diagnoses / Procedures Referred By Timothy harris Referred To Contact [facility] Diagnoses Special screening for malignant neoplasms, colon Upper abdominal pain Gastroesophageal reflux disease, unspecified whether esophagitis present Procedures EGD DIAGNOSTIC ESOPHAGOGASTRODUODENOSC OPY TRANSORAL DIAGNOSTIC Pretty Pino PA-C [address] [place] [address] [facility] [address] [place] [address] Referral ID Status Reason Start Date Expiration Date V isits Requested Visits Authorized [id number] Closed Auto-Generate d Referral 09/03/2022 09/03/2023 1 1 [facility] Summary Purpose Family History No Family History Records Found Advance Directives No Advanced Directives Records Found Medications Administered Section Inactive Administered Medications - up to 3 most recent administrations Medication Order MAR Action Action Date Dose Rate Site benzocaine 20% 1 [place] (TOPEX) 1 [place], TOPICAL, DIRECTED, Starting on Thu10/01/22 at 1330, [...] or prosecute any alcohol or drug abuse patient.[facility] the event this information is protected by the Federal Confidentiality of Alcohol and Drug Abuse Patient Records regulations: The Federal rules restrict any use of the information to criminally investigate or prosecute any alcohol or drug abuse patient.[facility] the event this information is protected by the Federal Confidentiality of Alcohol and Drug Abuse Patient Records regulations: The Federal rules restrict any use of the information to criminally investigate or prosecute any alcohol or drug abuse patient.[facility] Reason for Visit (unrecogniz ed section and content) Reason Comments Follow Up EGD and colonoscopy follow up Care Teams (unrecognized sec tion and content) Pick Up Relationship Specialty Start Date End Date Sergey Mathews(Historical)MD PCP - General Family Medicine 08/26/22 Pick Up Relationship Specialty Start Date End Date Sergey [...] BE BASED ON THE PRIMARY CLINICAL RECORDS. [facility] [employer] [facility]. provides no warranty or guarantee of the accuracy or completeness of information in this document.
[2023-08-26 18:15] LABS: Vitamin B12 858 pg/mL (211-911)
== END | disposition home or self-care (01) ==
LOC: MFPLAB 14:51
PROVIDERS: PCP Family Medicine; Visit Provider Family Medicine
DX: D75.89 Other specified diseases of blood and blood-forming organs (principal)
CPT/HCPCS: 36415; 82607; 82746

== ENCOUNTER → 2024-02-23 | Outpatient (CLI) | payer MEDICARE, OTHER, SELFPAY ==
[2024-02-23 10:24] LABS: ALB/GLOB Ratio 0.8 RATIO (0.9-2.4); AST(SGOT) 47 U/L (15-37); Alanine Aminotransfer ALT/SGPT 54 U/L (16-61); Albumin, Serum 3.5 g/dL (3.2-5.0); Alkaline Phosphatase 62 U/L (45-117); Anion Gap 4 (5-15); BUN 16 mg/dL (7-18); BUN/Creat Ratio 13.8 RATIO (10-20); Calcium,Total 9.1 mg/dL (8.5-10.1); Chloride 106 mmol/L (98-107); Cholesterol 168 mg/dL (200); Creatinine, Serum 1.16 mg/dL (0.70-1.30); EST Glomerular Filtration Rate 65 mL/min (>60); Est Glom Filt Rate - Afr Amer 79 mL/min (>60); Globulin 4.3 g/dL (2.2-4.2); Glucose 91 mg/dL (74-106); High Density Lipoprotein 58 mg/dL; Potassium 4.5 mmol/L (3.5-5.1); Protein, Total 7.8 g/dL (6.4-8.2); Sodium Level 138 mmol/L (136-145); Triglycerides 297 mg/dL; Very Low Density Lipoprotein 59 mg/dL (5-40)
[2024-02-23 10:39] LABS: Microalbumin:Creatinine Ratio 25.7 mg/g CRE (<30 mg/g CRE)
== END | disposition home or self-care (01) ==
LOC: MFPLAB 08:48
PROVIDERS: PCP Family Medicine; Visit Provider Family Medicine
DX: I10 Essential (primary) hypertension (principal); E78.5 Hyperlipidemia, unspecified
CPT/HCPCS: 36415; 80053; 80061; 82043; 82570

== ENCOUNTER → 2024-10-04 | Outpatient (CLI) | payer MEDICARE, OTHER, SELFPAY ==
[2024-10-04 11:03] LABS: Absolute Lymphocyte Count 1.91 X10^3/uL (0.83-4.51); Basophil# 0.04 X10^3/uL; Basophil% 0.7 % (0-1); Eosinophil# 0.34 X10^3/uL; Eosinophils% 5.8 % (0-5); Hematocrit 45.5 % (40-54); Hemoglobin 15.3 g/dL (13.0-16.5); Lymphocyte # 1.91 X10^3/ul (0.83-4.51); Lymphocyte % 32.6 % (19-41); Mean Corp Hgb Conc 33.6 g/dL (32-36); Mean Corpuscular Hgb 35.4 pg (27.0-32.0); Mean Corpuscular Volume 105.3 fL (80-94); Mean Platelet Vol. 10.4 fl (6.2-12.0); Monocyte# 0.54 X10^3/uL; Monocyte% 9.2 % (0-10); NRBC Flagged by Analyzer 0 % (0-5); Neutrophil # 2.99 X10^3/uL (2.7-7.7); Platelet Count 184 K/mm3 (150-450); RBC Distribution Width SD 47.3 fl (35.1-43.9); Red Blood Count 4.32 M/mm3 (4.6-6.2); White Blood Count 5.9 K/mm3 (4.4-11.0)
[2024-10-04 17:56] LABS: AST(SGOT) 48 U/L (<=37); Alanine Aminotransfer ALT/SGPT 43 U/L (<=46); Albumin, Serum 4.1 g/dL (3.4-4.8); Alkaline Phosphatase 58 U/L (40-129); Chloride 103 mmol/L (96-108); EST Glomerular Filtration Rate 72 (>60); Potassium 4.9 mmol/L (3.3-5.1); Sodium Level 139 mmol/L (133-145)
[2024-10-04 18:36] LABS: ALB/GLOB Ratio 1.3 RATIO (0.9-2.4); Anion Gap 13 (5-15); BUN 17 mg/dL (4-19); Calcium 9.6 mg/dL (7.6-11.0); Carbon Dioxide 23.3 mmol/L (22.0-29.0); Cholesterol 182 mg/dL (<=200); Creatinine, Serum 1.1 mg/dL (0.8-1.3); Globulin 3.2 g/dL (2.2-4.2); Glucose 85 mg/dL (70-99); High Density Lipoprotein 63 mg/dL; Protein, Total 7.3 g/dL (5.9-8.4); Total Bilirubin 0.67 mg/dL (0.00-1.30); Triglycerides 144 mg/dL; Very Low Density Lipoprotein 29 mg/dL (5-40)
[2024-10-04 20:27] LABS: Microalbumin,Random Urine 55.3 mg/L (NO RANGE EST.); Microalbumin:Creatinine Ratio 485.1 mg/g CRE
[2024-10-06 03:44] LABS: Uric Acid 4.3 mg/dL (3.5-7.2)
[2024-10-06 10:56] LABS: Vitamin B12 826 pg/mL (180-914)
== END | disposition home or self-care (01) ==
LOC: MFPLAB 08:45
PROVIDERS: PCP Family Medicine; Referring Provider Family Medicine; Visit Provider Family Medicine
DX: I10 Essential (primary) hypertension (principal); E78.2 Mixed hyperlipidemia; M10.9 Gout, unspecified; K76.0 Fatty (change of) liver, not elsewhere classified
CPT/HCPCS: 36415; 80053; 80061; 82043; 82570; 82607; 84550; 85025

== ENCOUNTER → 2025-01-23 | Outpatient (CLI) | payer MEDICARE, OTHER, SELFPAY ==
[2025-01-23 17:57] LABS: Anion Gap 13 (5-15); BUN 33 mg/dL (4-19); BUN/Creat Ratio 22.1 RATIO (10-20); Carbon Dioxide 21.3 mmol/L (21.0-32.0); Chloride 102 mmol/L (98-108); Creatinine, Serum 1.49 mg/dL (0.70-1.20); EST Glomerular Filtration Rate 49 (>60); Glucose 118 mg/dL (70-99); Potassium 4.8 mmol/L (3.3-5.1); Sodium Level 136 mmol/L (133-145)
[2025-01-23 19:38] LABS: Absolute Lymphocyte Count 1.82 X10^3/uL (0.83-4.51); Absolute Neutrophil Count 12.6 X10^3/uL (2.0-7.7); Basophil# 0.06 X10^3/uL; Basophil% 0.4 % (0-1); Eosinophils% 0.7 % (0-5); Hematocrit 40.6 % (40-54); Lymphocyte # 1.82 X10^3/ul (0.83-4.51); Mean Corp Hgb Conc 34.5 g/dL (32-36); Mean Corpuscular Hgb 35.2 pg (27.0-32.0); Mean Platelet Vol. 10.4 fl (6.2-12.0); Monocyte# 0.44 X10^3/uL; Monocyte% 2.9 % (0-10); NRBC Flagged by Analyzer 0 % (0-5); Neutrophil # 12.59 X10^3/uL (2.7-7.7); Platelet Count 227 K/mm3 (150-450); RBC Distribution Width CV 13.1 % (11.6-14.6); RBC Distribution Width SD 50.3 fl (35.1-43.9); Red Blood Count 3.98 M/mm3 (4.6-6.2); White Blood Count 15.2 K/mm3 (4.4-11.0)
[2025-01-23 19:50] LABS: Erythrocyte Sedimentation Rate 14 mm/hr (0-20)
[2025-01-23 20:27] LABS: Vitamin B12 3081 pg/mL (180-914)
--- OUTSIDE RECORDS SUMMARY | 2025-01-23 23:22 | XMS RPT_ITS | CCD ---
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 Name Role Phone Sergey Mathews MD(Historical) Primary Care Provid er Unavailable Diablo Grande, Mckenna Attending Unavailable Marvin, Rand Attending Unavailable Diablo Grande, Mckenna Referring Unavailable Alvarez, Mckenna Attending Unavailable Wong, Rand Referring Unavailable Reid, Sergey Attending Unavailable Reid, Sergey Referring Unavailable Reid, Sergey Primary Care Unavailable Sergey Mathews Attending Unavailable Reid, Sergey Primary Care Unavailable Reid, Sergey Attending Unavailable Reid, Sergey Primary Care Unavailable Sd Magallanes Attending Unavailable Sergey Mathews Referring Unavailable Sergey Mathews Primary Care Unavailable Reid PEDRAZA, Dr. Rincon Primary Care Provider Dr. Sergey Mathews MD Referring Provider [phone] Sd Magallanes Attending Provider Reid PEDRAZA, Dr. Rincon Attending Provider Allergies Allergy Classification Reported Allergen(s) Allergy Type Date of Onset Reaction(s) Facility (4 sources) Escitalopram Drug Allergy 10-18-2020 rapid pulse [facility] (4 sources) Lisinopril Drug Allergy 10-18-2020 cough [facility] (1 source) Escitalopram Drug Allergy 07-04-2024 [facility] (1 source) Lisinopril Drug Allergy 07-04-2024 [facility] Medications Current Medications Medication Drug Class(es) Dates Sig (Normalized) Sig (Original) allopurinol 300 mg oral tablet (7 sources) Xanthine Oxidase Inhibitor Start: 10-18-2020 take 1 tablet by mouth once daily Allopurinol 300 mg tablet Active 300 mg PO DAILY October 18, 2020 1:00am Comment on above: Take 300 mg by mouth once daily. benzonatate 200 mg oral capsule (1 source) Non-narcotic Antitussive Start: 07-04-2024 take 1 capsule by mouth three times daily as needed for cough Benzonatate 200 mg capsule Active 200 mg PO THREE TIMES A DAY as needed for cough July 04, 2024 1:00am bisoprolol fumarate 10 mg / hydroCHLOROthiazide 6.25 mg oral tablet (4 sources) Thiazide Diuretic, beta-Adrenergic Gene Start: 10-18-2020 Bisoprolol-[place] chlorothiazide 10-6.25 mg tablet Active 1 {tbl} PO DAILY October 18, 2020 1:00am Start: 10-18-2020 take 1 tablet by julianna once daily Bisoprolol-Hydrochlorothiazide Active 1 TABLET PO DAILY October 18, 2020 12:00am cholecalciferol 0.025 mg oral tablet (1 source) Vitamin D Start: 07-04-2024 take 1 tablet by mouth once daily Cholecalciferol (Vitamin D3) 25 mcg (1,000 unit) tablet Active 25 ug PO daily July 04, 2024 1:00am diclofenac sodium 75 mg delayed release oral tablet (4 sources) Nonsteroidal Anti-inflammatory Drug Start: 10-18-2020 take 1 tablet by mouth once daily Diclofenac Sodium 75 mg tablet,delayed release (DR/EC) Active 75 mg PO DAILY October 18, 2020 1:00am Lactobacillus Combination No.4 (Probiotic) 3 billion cell capsule (1 source) Start: 07-04-2024 take 3 capsules by mouth once daily Lactobacillus Combination No.4 (Probiotic) 3 billion cell capsule Active 3000 NMA PO daily July 04, 2024 1:00am administer with a meal LORazepam 0.5 mg oral tablet (7 sources) Benzodiazepine Start: 10-18-2020 take 1 tablet by mouth once daily as needed Lorazepam 0.5 mg tablet Active 0.5 mg PO DAILY as needed October 18, 2020 1:00am Comment on above: Take 0.5 mg by mouth daily at bedtime. methylPREDNISolone 4 mg oral tablet (1 source) Corticosteroid Start: 07-04-2024 take 1 tablet by mouth once Methylprednisolone (Medrol (Andrews)) 4 mg tablets,dose pack Active 0 PO per package directions July 04, 2024 1:00am PO PER PKG DIR Multivitamin tablet (1 source) Start: 07-04-2024 Multivitamin tablet Active 1 {tbl} PO daily July 04, 2024 1:00am omeprazole 20 mg delayed release oral capsule (12 sources) Proton Pump Inhibitor Start: 07-04-2024 take 1 capsule by mouth once daily Omeprazole 20 mg capsule,delayed release(DR/EC) Active 20 mg PO daily July 04, 2024 1:00am Start: 10-18-2020 End: 07-04-2024 take 1 capsule by mouth once daily as needed Omeprazole 40 mg capsule,delayed release(DR/EC) Discontinued 40 mg PO DAILY as needed October 19, 2020 10:05am July 04, 2024 12:00pm omeprazole (PRIL OSEC) 40 mg capsule Take 20 mg by mouth once daily. 0 Active Comment on above: Take 20 mg by mouth once daily. telmisartan 20 mg oral tablet (1 source) Angiotensin 2 Receptor Gene Start: take 1 tablet by mouth once daily Telmisartan 20 mg tablet Active 20 mg PO daily July 04, 2024 1:00am vitamin B12 (1 source) Vitamin B12 Start: take 1 tablet by mouth once daily Cyanocobalamin (Vitamin B-12) 500 mcg tablet Active 500 ug PO daily July 04, 2024 1:00am Completed/Discontinued Medications Medication Drug Class(es) Dates Sig (Normalized) Sig (Original) bisoprolol fumarate 10 mg oral tablet (3 sources) beta-Adrenergic Gene take 6.5 mg by mouth once daily bisoprolol 10 mg ORAL tablet Take 6.5 mg by mouth once daily. 0 Active Comment on above: Take 6.5 mg by mouth once daily. cyclobenzaprine hydrochloride 5 mg oral tablet (4 sources) Muscle Relaxant Start: 10-18-2020 End: 07-04-2024 take 1 tablet by mouth at bedtime Cyclobenzaprine 5 mg tablet Discontinued 5 mg PO AT BEDTIME October 18, 2020 1:00am July 04, 2024 12:02pm rjbbvtvtyt-zutvlnc-wa mphor 75 mg-3 %- 3 % KGtd (3 sources) diclofenac-menth ol-c amphor 75 mg-3 %- 3 % KGtd polyethylene glycol 3350 149090 mg / potassium chloride 2970 mg / sodium bicarbonate 6740 mg / sodium chloride 5860 mg / sodium sulfate 72633 mg powder for oral solution (1 source) Osmotic Laxative Start: 09-03-2022 End: 09-03-2022 peg 3350-Electrolytes (GOLYTELY) 236-22.74-6.74 -5.86 gram suspension Take 4,000 mL by mouth one time only for 1 dose. 1 Each 0 09/03/2022 09/03/2022 Comment on above: Take 4,000 mL by julianna th one time only for 1 dose. Problems Problem Classification Problem Date Documented Da te Episodic/Chronic Abdominal hernia (2 sources) Hiatal hernia; Translations: [Diaphragmatic hernia without obstruction or gangrene] Onset: 10-08-2022 Episodic Abdominal pain (3 sources) Abdominal discomfort; Translations: [Right upper quadrant pain] Onset: 10-01-2022 Episodic Conduction disorders (4 sources) Right bundle branch block; Translations: [Unspecified right bundle-branch block] 10-18-2020 Chronic Deficiency and other anemia (1 source) Anemia, unspecified; Translations: [Anemia, unspecified] Onset: 10-06-2024 Episodic Esophageal disorders (3 sources) Gastro-esophageal reflux disease with esophagitis; Translations: [Gastroesophageal reflux disease with esophagitis without hemorrhage] Onset: 10-01-2022 Chronic Esophageal disorders (1 source) Esophageal disorders; Translations: [Gastroesophageal reflux disease with esophagitis without hemorrhage] Onset: 10-08-2022 Essential hypertension (5 sources) Essential hypertension; Translations: [Essential (primary) hypertension] Onset: 10-16-2024 10-18-2020 Chronic Gastritis and duodenitis (2 sources) Erythematous gastropathy; Translations: [Gastritis, unspecified, without bleeding] Onset: 10-08-2022 Episodic Other screening for suspected conditions (not mental disorders or infectious disease) (5 sources) Patient encounter status; Translations: [Encounter for screening for malignant neoplasm of colon] Onset: 10-01-2022 Episodic Results Test Name Value Interpretation Reference Range Facility L503.0106on 10-06-2024 Cobalamin (Vitamin B12) [Mass/Vol] 826 pg/mL Normal 180-914 [facility] Comment on above: Performed By: #### L 500.4050, L500.4100, L503.0106 #### [facility] [address] [place], [address] Uric Acidon 10-06-2024 URIC 4.3 mg/dL Normal 3.5-7.2 [facility] Comment on above: Result Comment: The drugs N-Acetylcysteine and Metamizole may falsely depress this assay. Performed By: #### L 502.0250, L100.0100, L501.1400 #### [facility] [address] [place], [place], [address] Absolute neutrophil countOrd ered By: Sergey Mathews on 10-04-2024 Neutrophils (Bld) [#/Vol] 3.0 10*3/uL 2.0-7.7 [facility] Albumin DL <= 20 mg/L (U) [M ass/Vol]Ordered By: Sergey Mathews on 10-04-2024 Urine Random Microalbumin 55.3 mg/L NO RANGE EST. [facility] BUN/creatinine ratioOrdered By: Sergey Mathews on 10-04-2024 Urea nitrogen/Creatinine [Mass ratio] 15.0 mg/mg 10-20 [facility] Comment on above: Previous reported re sult: 16.0 RATIOEdited by: [employer] on 10/04/24:1835 AMENDED REPORT 10/04/241835 BUN/CRE previously reported as: 16.0 RATIO Basophil percentageOrdered B y: Sergey Mathews on 10-04-2024 Basophils/100 WBC (Bld) 0.7 % 0-1 [facility] Bilirubin, totalOrdered By: Sergey Mathews on 10-04-2024 Bilirubin [Mass/Vol] 0.67 mg/dL 0.00-1.30 [facility] Comment on above: Previous reported re sult: 0.69 mg/dLEdited by: [employer] on 10/04/24:1835 AMENDED REPORT 10/04/241835 T BILI previously reported as: 0.69 mg/dL CBC W/Diff, Automatedon 09-11 Absolute Lymph 1.91 X10 3/uL Normal 0.83-4.51 [facility] Comment on above: Performed By: #### L 502.0250, L100.0100, L501.1400 #### [facility] [address] [place], [address] Absolute Neut 3.0 X10 3/uL Normal 2.0-7.7 [facility] Comment on above: Performed By: #### L 502.0250, L100.0100, L501.1400 #### [facility] [address] [place], [address] Basophils/100 WBC (Bld) 0.7 % Normal 0-1 [facility] Comment on above: Performed By: #### L 502.0250, L100.0100, L501.1400 #### [facility] [address] [place], [address] Eosinophils/100 WBC (Bld) 5.8 % High 0-5 [facility] Comment on above: Performed By: #### L 502.0250, L100.0100, L501.1400 #### [facility] [address] [place], [address] Erythrocyte distribution width (RBC) [Ratio] 12.0 % Normal 11.6-14.6 [facility] Comment on above: Performed By: #### L 502.0250, L100.0100, L501.1400 #### [facility] [address] [place], [address] Hematocrit (Bld) [Volume fraction] 45.5 % Normal 40-54 [facility] Comment on above: Performed By: #### L 502.0250, L100.0100, L501.1400 #### [facility] [address] [place], [address] Hemoglobin (Bld) [Mass/Vol] 15.3 g/dL Normal 13.0-16.5 [facility] Comment on above: Performed By: #### L 502.0250, L100.0100, L501.1400 #### [facility] [address] [place], [address] IG% 0.700 Normal 0.0-0.9 [facility] Comment on above: Result Comment: IG% - Immature Granulocytes (promyelocytes, myelocytes and metamyelocytes) > 1% indicates that a LEFT SHIFT is Present. Performed By: #### L 502.0250, L100.0100, L501.1400 #### [facility] [address] [place], [address] Lymphocytes/100 WBC (Bld) 32.6 % Normal 19-41 [facility] Comment on above: Performed By: #### L 502.0250, L100.0100, L501.1400 #### [facility] [address] [place], [address] MCH (RBC) [Entitic mass] 35.4 pg High 27.0-32.0 [facility] Comment on above: Performed By: #### L 502.0250, L100.0100, L501.1400 #### [facility] [address] [place], [address] MCHC (RBC) [Mass/Vol] 33.6 g/dL Normal 32-36 [facility] Comment on above: Performed By: #### L 502.0250, L100.0100, L501.1400 #### [facility] [address] [place], [address] MCV (RBC) [Entitic vol] 105.3 fL High 80-94 [facility] Comment on above: Performed By: #### L 502.0250, L100.0100, L501.1400 #### [facility] [address] [place], [address] Monocytes/100 WBC (Bld) 9.2 % Normal 0-10 [facility] Comment on above: Performed By: #### L 502.0250, L100.0100, L501.1400 #### [facility] [address] [place], [address] Neutrophils/100 WBC (Bld) 51.0 % Normal 47-70 [facility] Comment on above: Performed By: #### L 502.0250, L100.0100, L501.1400 #### [facility] [address] [place], [address] Nucleated RBC (Bld) [#/Vol] 0 10*3/uL Normal 0-5 [facility] Comment on above: Performed By: #### L 502.0250, L100.0100, L501.1400 #### [facility] [address] [place], [address] Platelet mean volume (Bld) [Entitic vol] 10.4 fL Normal 6.2-12.0 [facility] Comment on above: Performed By: #### L 502.0250, L100.0100, L501.1400 #### [facility] [address] [place], [address] Platelets (Bld) [#/Vol] 184 10*3/uL Normal 150-450 [facility] Comment on above: Performed By: #### L 502.0250, L100.0100, L501.1400 #### [facility] [address] [place], [address] RBC (Bld) [#/Vol] 4.32 10*6/uL Low 4.6-6.2 [facility] Comment on above: Performed By: #### L 502.0250, L100.0100, L501.1400 #### [facility] [address] [place], [address] RDW SD 47.3 fl High 35.1-43.9 [facility] Comment on above: Performed By: #### L 502.0250, L100.0100, L501.1400 #### [facility] [address] [place], [address] WBC (Bld) [#/Vol] 5.9 10*3/uL Normal 4.4-11.0 [facility] Comment on above: Performed By: #### L 502.0250, L100.0100, L501.1400 #### [facility] [address] [place], [address] Cholesterol in VLDL [Mass/Vo l]Ordered By: Sergey Mathews on 10-04-2024 VLDL Cholesterol 29 mg/dL 5-40 [facility] Comprehensive Metabolic Prof ilon 10-04-2024 Albumin/Globulin [Mass ratio] 1.3 {ratio} Normal 0.9-2.4 [facility] Comment on above: Performed By: #### L 500.4050, L500.4100, L503.0106 #### [facility] [address] [place], [address] Anion gap [Moles/Vol] 13 mmol/L Normal 5-15 [facility] Comment on above: Performed By: #### L 500.4050, L500.4100, L503.0106 #### [facility] [address] [place], [address] Bilirubin [Mass/Vol] 0.67 mg/dL Normal 0.00-1.30 [facility] Comment on above: Result Comment: AMENDED REPORT 10/04/241835 T BILI previously reported as: 0.69 mg/dL Performed By: #### L 500.4050, L500.4100, L503.0106 #### [facility] [address] [place], [address] BUN/CRE 15.0 RATIO Normal 10-20 [facility] Comment on above: Result Comment: AMENDED REPORT 10/04/241835 BUN/CRE previously reported as: 16.0 RATIO Performed By: #### L 500.4050, L500.4100, L503.0106 #### [facility] [address] [place], [address] Calcium [Mass/Vol] 9.6 mg/dL Normal 7.6-11.0 [facility] Comment on above: Result Comment: AMENDED REPORT 10/04/241835 CA previously reported as: 9.8 mg/dL Performed By: #### L 500.4050, L500.4100, L503.0106 #### [facility] [address] [place], [address] CO2 [Moles/Vol] 23.3 mmol/L Normal 22.0-29.0 [facility] Comment on above: Result Comment: AMENDED REPORT 10/04/241835 CO2 previously reported as: 23.5 mmol/L Performed By: #### L 500.4050, L500.4100, L503.0106 #### [facility] [address] [place], [address] Creatinine [Mass/Vol] 1.1 mg/dL Normal 0.8-1.3 [facility] Comment on above: Performed By: #### L 500.4050, L500.4100, L503.0106 #### [facility] [address] [place], [address] Globulin (S) [Mass/Vol] 3.2 g/dL Normal 2.2-4.2 [facility] Comment on above: Result Comment: AMENDED REPORT 10/04/241835 GLOB previously reported as: 3.3 g/dL Performed By: #### L 500.4050, L500.4100, L503.0106 #### [facility] [address] [place], [address] Glucose [Mass/Vol] 85 mg/dL Normal 70-99 [facility] Comment on above: Result Comment: AMENDED REPORT 10/04/241835 GLU previously reported as: 86 mg/dL Performed By: #### L 500.4050, L500.4100, L503.0106 #### [facility] [address] [place], [address] T PROT 7.3 g/dL Normal 5.9-8.4 [facility] Comment on above: Result Comment: AMENDED REPORT 10/04/24 1836 T PROT previously reported as: 7.4 g/dL Performed By: #### L 500.4050, L500.4100, L503.0106 #### [facility] [address] [place], [address] Urea nitrogen [Mass/Vol] 17 mg/dL Normal 4-19 [facility] Comment on above: Performed By: #### L 500.4050, L500.4100, L503.0106 #### [facility] [address] [place], [address] Creatinine Unsp time (U) [Ma ss/Vol]Ordered By: Sergey Mathews on 10-04-2024 Creatinine (U) [Mass/Vol] 114.00 mg/dL NO RANGE EST. [facility] Creatinine [Moles/Vol]Ordere d By: Sergey Mathews on 10-04-2024 Creatinine [Mass/Vol] 1.1 mg/dL 0.8-1.3 [facility] Eosinophil percentageOrdered By: Sergey Mathews on 10-04-2024 Eosinophils/100 WBC (Bld) 5.8 % High 0-5 [facility] Erythrocyte distribution wid th ratioOrdered By: Sergey Mathews on 10-04-2024 Erythrocyte distribution width (RBC) [Ratio] 12.0 % 11.6-14.6 [facility] Erythrocyte distribution wid th standard deviationOrdered By: Sergey Mathews on 10-04-2024 Erythrocyte distribution width (RBC) [Entitic vol] 47.3 fL High 35.1-43.9 [facility] GFR/1.73 sq M.predicted erin g non-blacks MDRD (S/P/Bld) [Vol rate/Area]Ordered By: Sergey Mathews on 10-04-2024 Estimated GFR (MDRD) Non-Af Amer 72 >60 [facility] Comment on above: mL/min/1.73m2 CKD-EP I Creatinine Equation (2020) Hematocrit Auto (Bld) [Volum e fraction]Ordered By: Seregy Mathews on 10-04-2024 Hematocrit (Bld) [Volume fraction] 45.5 % 40-54 [facility] Hemoglobin measurementOrdere d By: Sergey Mathews on 10-04-2024 Hemoglobin (Bld) [Mass/Vol] 15.3 g/dL 13.0-16.5 [facility] Immature granulocytes/100 WB C Auto (Bld)Ordered By: Sergey Mathews on 10-04-2024 Immature granulocytes/100 WBC (Bld) 0.700 % 0.0-0.9 [facility] Comment on above: IG% - Immature Granu locytes (promyelocytes, myelocytes and metamyelocytes) > 1% indicates that a LEFT SHIFT is Present. Laboratory - Chemistry and C hemistry - challengeOrdered By: Sergey Mathews on 10-04-2024 AST [Catalytic activity/Vol] 48 U/L High <38 [facility] Cobalamin (Vitamin B12) [Mass/Vol] 826 pg/mL 180-914 [facility] Lipid Profileon 10-04-2024 Cholesterol in LDL [Mass/Vol] 90 mg/dL Normal 0-130 [facility] Comment on above: Performed By: #### L 500.4050, L500.4100, L503.0106 #### [facility] [address] [place] [address], [id number] Low density lipoprotein (LDL ) cholesterol measurementOrdered By: Sergey Mathews on 10-04-2024 Cholesterol in LDL [Mass/Vol] 90 mg/dL 0-130 [facility] Lymphocytes Auto (Unsp spec) [#/Vol]Ordered By: Sergey Mathews on 10-04-2024 Lymphocytes (Bld) [#/Vol] 1.91 10*3/uL 0.83-4.51 [facility] Lymphocytes/100 WBC Auto (Un sp spec)Ordered By: Sergey Mathews on 10-04-2024 Lymphocytes/100 WBC (Bld) 32.6 % 19-41 [facility] MCV (mean corpuscular volume ) determinationOrdered By: Sergey Mathews on 10-04-2024 MCV (RBC) [Entitic vol] 105.3 fL High 80-94 [facility] Mean corpuscular hemoglobin (MCH) determinationOrdered By: Sergey Mathews on 10-04-2024 MCH (RBC) [Entitic mass] 35.4 pg High 27.0-32.0 [facility] Mean corpuscular hemoglobin concentration (MCHC) determinationOrdered By: Sergey Mathews on 10-04-2024 MCHC (RBC) [Mass/Vol] 33.6 g/dL 32-36 [facility] Mean platelet volume determi nationOrdered By: Sergey Mathews on 10-04-2024 Platelet mean volume (Bld) [Entitic vol] 10.4 fL 6.2-12.0 [facility] Microalb:Creat Ratio,Random URon 10-04-2024 Creatinine [Mass/Vol] 114.00 mg/dL Normal NO RAN GE EST. [facility] Comment on above: Performed By: #### L 502.0250, L100.0100, L501.1400 #### [facility] [address] [place], [address] MALB:CRE 485.1 mg/g CRE Normal [facility] Comment on above: Performed By: #### L 502.0250, L100.0100, L501.1400 #### [facility] [address] [place], [address] MICROALBUMIN,UR 55.3 mg/L Normal NO RANGE EST. [facility] Comment on above: Performed By: #### L 502.0250, L100.0100, L501.1400 #### [facility] [address] [place], [address] Microalbumin/creat ratio urO rdered By: Sergey Mathews on 10-04-2024 Urine Microalbumin/Creatinine Ratio 485.1 mg/g CRE [facility] Monocyte percentageOrdered B y: Sergey Mathews on 10-04-2024 Monocytes/100 WBC (Bld) 9.2 % 0-10 [facility] Neutrophil percentageOrdered By: Sergey Mathews on 10-04-2024 Neutrophils/100 WBC (Bld) 51.0 % 47-70 [facility] Nucleated red blood cell per centageOrdered By: Sergey Mathews on 10-04-2024 Nucleated RBC/100 WBC (Bld) [Ratio] 0 % 0-5 [facility] Platelet countOrdered By: Cody Mathews on 10-04-2024 Platelets (Bld) [#/Vol] 184 10*3/uL 150-450 [facility] RBC Auto (Bld) [#/Vol]Ordere d By: Sergey Mathews on 10-04-2024 RBC (Bld) [#/Vol] 4.32 10*6/uL Low 4.6-6.2 [facility] Serum globulin measurementOr dered By: Sergey Mathews on 10-04-2024 Globulin (S) [Mass/Vol] 3.2 g/dL 2.2-4.2 [facility] Comment on above: Previous reported re sult: 3.3 g/dLEdited by: JORDON on 10/04/24:1836 AMENDED REPORT 10/04/241835 GLOB previously reported as: 3.3 g/dL Serum glucose measurement (m ass/volume)Ordered By: Sergey Mathews on 10-04-2024 Glucose [Mass/Vol] 85 mg/dL 70-99 [facility] Comment on above: Previous reported re sult: 86 mg/dLEdited by: JORDON on 10/04/24:1836 AMENDED REPORT 10/04/241835 GLU previously reported as: 86 mg/dL Serum or plasma alanine purvis otransferase (ALT) measurementOrdered By: Sergey Mathews on 10-04-2024 ALT [Catalytic activity/Vol] 43 U/L <47 [facility] Serum or plasma albumin franck urement (mass/volume)Ordered By: Sergey Mathews on 10-04-2024 Albumin [Mass/Vol] 4.1 g/dL 3.4-4.8 [facility] Serum or plasma albumin/glob ulin mass ratioOrdered By: Sergey Mathews on 10-04-2024 Albumin/Globulin [Mass ratio] 1.3 {ratio} 0.9-2.4 [facility] Serum or plasma alkaline sharon sphatase measurementOrdered By: Sergey Mathews on 10-04-2024 ALP [Catalytic activity/Vol] 58 U/L 40-129 [facility] Serum or plasma anion gap de termination (moles/volume)Ordered By: Sergey Mathews on 10-04-2024 Anion gap [Moles/Vol] 13 mmol/L 5-15 [facility] Serum or plasma calcium franck urement (mass/volume)Ordered By: Sergey Mathews on 10-04-2024 Calcium [Mass/Vol] 9.6 mg/dL 7.6-11.0 [facility] Comment on above: Previous reported re sult: 9.8 mg/dLEdited by: JORDON on 10/04/24:1836 AMENDED REPORT 10/04/241835 CA previously reported as: 9.8 mg/dL Serum or plasma cholesterol in HDL measurement (mass/volume)Ordered By: Sergey Mathews on 10-04-2024 Cholesterol in HDL [Mass/Vol] 63 mg/dL >40 [facility] Comment on above: The drugs N-Acetylcy steine and Metamizole may falsely depress this assay. National Cholesterol Education Program (NCEP) guidelines:<40 mg/dL: Low HDL-cholesterol (major risk factor for CHD)>= 60 mg/dL: High HDL-cholesterol (negative risk factor for CHD)HDL-cholesterol is affected by a number of factors, e.g. smoking, exercise, hormones, sex and age. Serum or plasma cholesterol measurement (mass/volume)Ordered By: Sergey Mathews on 10-04-2024 Cholesterol [Mass/Vol] 182 mg/dL <201 [facility] Comment on above: Cholesterol level, D esirable <200 mg/dLBorderline high cholesterol 200-239 mg/dLHigh cholesterol >=240 mg/dLRecommendations of the NCEP Adult Treatment Panel for the following risk-cutoff thresholds for the [place] population. Serum or plasma potassium me asurementOrdered By: Sergey Mathews on 10-04-2024 Potassium [Moles/Vol] 4.9 mmol/L 3.3-5.1 [facility] Serum or plasma sodium measu rement (moles/volume)Ordered By: Sergey Mathews on 10-04-2024 Sodium [Moles/Vol] 139 mmol/L 133-145 [facility] Serum or plasma urea nitroge n measurement (mass/volume)Ordered By: Sergey Mathews on 10-04-2024 Urea nitrogen [Mass/Vol] 17 mg/dL 4-19 [facility] Serum or plasma uric acid me asurement (mass/volume)Ordered By: Sergey Mathews on 10-04-2024 Urate [Mass/Vol] 4.3 mg/dL 3.5-7.2 [facility] Comment on above: The drugs N-Acetylcy steine and Metamizole may falsely depress this assay. Total proteinOrdered By: Marissa Mathews on 10-04-2024 Protein [Mass/Vol] 7.3 g/dL 5.9-8.4 [facility] Comment on above: Previous reported re sult: 7.4 g/dLEdited by: JORDON on 10/04/24:1836 AMENDED REPORT 10/04/241835 T PROT previously reported as: 7.4 g/dL Triglycerides measurementOrd ered By: Sergey Mathews on 10-04-2024 Triglyceride [Mass/Vol] 144 mg/dL <199 [facility] Comment on above: The drugs N-Acetylcy steine and Metamizole may falsely depress this assay. Normal range: <150 mg/dLBorderline High: 150-199 mg/dLHigh: 200-499 mg/dLVery High: >500 mg/dL White blood cell (WBC) count Ordered By: Sergey Mathews on 10-04-2024 WBC (Bld) [#/Vol] 5.9 10*3/uL 4.4-11.0 [facility] Urgent Care Visit Reporton 1 09-03-2023 Urgent Care Visit Report [facility] [address], [address] [place] [address] OFFICE VISIT Date of Service: 07/04/24 MR#: [id number] Acct: [id number] Name: LORNA VIGIL Rep #: [id number] : 1950 Provider: LEATHA Araujo Age/Sex: 74/M Location: [facility] Status: Signed Intake Vital Signs 10/19/20 09:03 07/04/24 11:16 Height 6 ft 1 in 6 ft 1 in Weight: 238 lb BMI 31.4 BP 156/80 H Blood Pressure Location Rt brachial Position Sitting Respiration 16 Pulse 65 Pulse Source NIBP Temp 98.5 F Temp Source Oral Pulse Oximetry (%) 98 Oxygen Delivery Method room air Intake Visit Reasons: COUGH, SORE THROAT Chief Complaint: cough, sore throat [employer] Required: No Is patient in pain?: No Allergies escitalopram Adverse Reaction (Verified 07/04/24 11:00) rapid pulse lisinopril Adverse Reaction (Verified 07/04/24 11:00) cough Medications ???Medication ???Instructions ???Recorded ???Confirmed ???Type allopurinol 300 mg tablet 300 mg PO DAILY 10/18/20 07/04/24 History bisoprolol 10 1 tab PO DAILY 10/18/20 07/04/24 History mg-hydrochlorothiazide 6.25 mg tablet diclofenac sodium 75 mg 75 mg PO DAILY 10/18/20 07/04/24 History tablet,delayed release lorazepam 0.5 mg tablet 0.5 mg PO DAILY PRN 10/18/20 07/04/24 History benzonatate 200 mg capsule 200 mg PO TID PRN cough #20 caps 07/04/24 07/04/24 Rx cholecalciferol (vitamin D3) 25 25 mcg PO QDAY 07/04/24 07/04/24 History mcg (1,000 unit) tablet cyanocobalamin (vitamin B-12) 500 500 mcg PO QDAY 07/04/24 07/04/24 History mcg tablet lactobacillus combination no.4 3 3,000 mmu cells PO QDAY 07/04/24 07/04/24 History billion cell capsule (Probiotic) methylprednisolone 4 mg tablets in See Rx Instructions PO PER PKG DIR 07/04/24 07/04/24 Rx a dose pack (Medrol ([place])) #21 tabs multivitamin 1 tab PO QDAY 07/04/24 07/04/24 History omeprazole 20 mg capsule,delayed 20 mg PO QDAY 07/04/24 07/04/24 History release telmisartan 20 mg tablet 20 mg PO QDAY 07/04/24 07/04/24 History Have you fallen in the past year?: No Nurse's Note: cough, sore throat, declined covid/flu and strep test, no fever. symptoms x5 days PFSH Medical History Arthritis Hiatal hernia Gout Anxiety Obesity GERD (gastroesophageal reflux disease) Essential (primary) hypertension Right bundle branch block (RBBB) Family History Father CAD (coronary artery disease), Onset Age: 60 CABG Brother Hypertension Social History Smoking Status: Former smoker alcohol intake: current alcohol intake frequency: holidays/special occasions only HPI HPI Chief Complaint: cough, sore throat Details: LORNA VIGIL, is a 74 M who presents to the office today for [facility] for approximately 1 wk h/o chills cough, congestion, sore throat. Patient notes no complaints of chest pain or shortness of breath or dyspnea on exertion. Several close contacts recently dx???d w/ similar URI complaints. No [id number] taken to assist. COVID-19 test yesterday was negative. Non-smoker. Spouse with similar complaints. No other associated symptoms and no other alleviating/aggravatin g factors. PMH: HTN ROS Const Constitutional: No other (As above) Exam Const General: cooperative, healthy appearing and no acute distress Orientation: alert, awake and oriented x3 HENMT Head: normal to inspection Ears: hearing grossly normal bilaterally, external ears normal, TM's normal bilaterally and EAC's normal Nose: external nose normal, nares normal, septum normal and clear nasal discharge Face and sinus: normal facial exam, sinuses nontender and face symmetric Mouth: oral mucosae normal, lip normal, tongue normal and oropharynx normal Throat: posterior oropharynx normal, tonsils normal, uvula midline and no postnasal drainage Eyes General: appearance normal, both eyes and all related structures Neck Neck: normal visual inspection, full ROM, no lymphadenopathy, no meningeal signs and supple Neck mass: No Thyroid: thyroid normal Lymphatic: no lymphadenopathy noted Chest Chest palpation inspection: normal inspection of the chest Resp Effort Inspection: normal respiratory effort, able to speak in complete sentences and cough Quality of cough: wet (nonproductive in office today) Auscultation: Bilateral: Clear to Auscultation Cardio Palpation: normal PMI Rate: regular Rhythm: regular rhythm Heart Sounds: S1 normal, S2 normal, no gallops, no murmurs and no rubs Pulses: radial pulses present Skin General: no rashes or lesions noted Neuro General: patient alert, patient awake and (more content not included)... Normal [facility] Comprehensive Metabolic Prof ilon 02-23-2024 Albumin [Mass/Vol] 3.5 g/dL Normal 3.2-5.0 [facility] Comment on above: Performed By: #### L 500.4100, L500.4050, L502.0250 #### [facility] [address] [place], [address] Albumin/Globulin [Mass ratio] 0.8 {ratio} Low 0.9-2.4 [facility] Comment on above: Performed By: #### L 500.4100, L500.4050, L502.0250 #### [facility] [address] [place], [address] ALK P 62 U/L Normal 45-117 [facility] Comment on above: Performed By: #### L 500.4100, L500.4050, L502.0250 #### [facility] [address] [place], [address] ALT [Catalytic activity/Vol] 54 U/L Normal 16-61 [facility] Comment on above: Performed By: #### L 500.4100, L500.4050, L502.0250 #### [facility] [address] [place], [address] AST [Catalytic activity/Vol] 47 U/L High 15-37 [facility] Comment on above: Performed By: #### L 500.4100, L500.4050, L502.0250 #### [facility] [address] [place], [address] Bilirubin [Mass/Vol] 0.70 mg/dL Normal 0.20-1.00 [facility] Comment on above: Result Comment: For patients on eltrombopag therapy, use of Dimension [place] TBIL is not recommended. Performed By: #### L 500.4100, L500.4050, L502.0250 #### [facility] [address] [place], [address] BUN/CRE 13.8 RATIO Normal 10-20 [facility] Comment on above: Performed By: #### L 500.4100, L500.4050, L502.0250 #### [facility] [address] [place], [address] CA,Total 9.1 mg/dL Normal 8.5-10.1 [facility] Comment on above: Performed By: #### L 500.4100, L500.4050, L502.0250 #### [facility] [address] [place], [address] Chloride [Moles/Vol] 106 mmol/L Normal 98-107 [facility] Comment on above: Performed By: #### L 500.4100, L500.4050, L502.0250 #### [facility] [address] [place], [address] CO2 [Moles/Vol] 28.0 mmol/L Normal 21.0-32.0 [facility] Comment on above: Performed By: #### L 500.4100, L500.4050, L502.0250 #### [facility] [address] [place], [address] Creatinine [Mass/Vol] 1.16 mg/dL Normal 0.70-1.30 [facility] Comment on above: Result Comment: The validity of the calculated GFR GFRAA in patients over 70 years has not been determined. Clinical correlation is essential. Performed By: #### L 500.4100, L500.4050, L502.0250 #### [facility] [address] [place], [address] EST GFR - AA 79 mL/min Normal >60 [facility] Comment on above: Result Comment: Afri can [place] GFR Calc Performed By: #### L 500.4100, L500.4050, L502.0250 #### [facility] [address] [place], [address] GAP 4 Low 5-15 [facility] Comment on above: Performed By: #### L 500.4100, L500.4050, L502.0250 #### [facility] [address] [place], [address] GFR/1.73 sq M.predicted among non-blacks MDRD (S/P/Bld) [Vol rate/Area] 65 mL/min/{1.73_m2} Normal >60 [facility] Comment on above: Result Comment: Non- GFR Calc Performed By: #### L 500.4100, L500.4050, L502.0250 #### [facility] [address] [place], [address] Globulin (S) [Mass/Vol] 4.3 g/dL High 2.2-4.2 [facility] Comment on above: Performed By: #### L 500.4100, L500.4050, L502.0250 #### [facility] [address] [place], [address] Glucose [Mass/Vol] 91 mg/dL Normal 74-106 [facility] Comment on above: Performed By: #### L 500.4100, L500.4050, L502.0250 #### [facility] [address] [place], [address] Potassium [Moles/Vol] 4.5 mmol/L Normal 3.5-5.1 [facility] Comment on above: Performed By: #### L 500.4100, L500.4050, L502.0250 #### [facility] [address] [place], [address] Sodium [Moles/Vol] 138 mmol/L Normal 136-145 [facility] Comment on above: Performed By: #### L 500.4100, L500.4050, L502.0250 #### [facility] [address] [place], [address] T PROT 7.8 g/dL Normal 6.4-8.2 [facility] Comment on above: Performed By: #### L 500.4100, L500.4050, L502.0250 #### [facility] [address] [place], [address] Urea nitrogen [Mass/Vol] 16 mg/dL Normal 7-18 [facility] Comment on above: Performed By: #### L 500.4100, L500.4050, L502.0250 #### [facility] [address] [place], [address] Lipid Profileon 02-23-2024 Cholesterol [Mass/Vol] 168 mg/dL Normal 200 [facility] Comment on above: Result Comment: <200 mg/dL Desirable 200-240 mg/dL Borderline >240 mg/dL High Risk Performed By: #### L 500.4100, L500.4050, L502.0250 #### [facility] [address] [place], [address] Cholesterol in HDL [Mass/Vol] 58 mg/dL Normal [facility] Comment on above: Result Comment: The drugs N-Acetylcysteine and Metamizole may falsely depress this assay. Reference Range HDL <40 mg/dL Low HDL Cholesterol HDL >or= 60 mg/dL High HDL Cholesterol Performed By: #### L 500.4100, L500.4050, L502.0250 #### [facility] [address] [place], [address] Cholesterol in LDL [Mass/Vol] 51 mg/dL Normal 0-130 [facility] Comment on above: Performed By: #### L 500.4100, L500.4050, L502.0250 #### [facility] [address] [place], [address] Cholesterol in VLDL [Mass/Vol] 59 mg/dL High 5-40 [facility] Comment on above: Performed By: #### L 500.4100, L500.4050, L502.0250 #### [facility] [address] [place], [address] Triglyceride [Mass/Vol] 297 mg/dL High [facility] Comment on above: Result Comment: The drugs N-Acetylcysteine and Metamizole may falsely depress this assay. Serum Triglycerides Reference Interval Normal <150 mg/dL Borderline high 150 - 199 mg/dL High 200 - 499 mg/dL Very High > or = 500 mg/dL Performed By: #### L 500.4100, L500.4050, L502.0250 #### [facility] [address] [place], [address] Microalb:Creat Ratio,Random URon 02-23-2024 Creatinine [Mass/Vol] 152.00 mg/dL Normal NO RAN GE EST. [facility] Comment on above: Performed By: #### L 500.4100, L500.4050, L502.0250 #### [facility] [address] [place], [address] MALB:CRE 25.7 mg/g CRE Normal <30 mg/g CRE [facility] Comment on above: Performed By: #### L 500.4100, L500.4050, L502.0250 #### [facility] [address] [place], [address] MICROALBUMIN,UR 39.0 mg/L Normal NO RANGE EST. [facility] Comment on above: Performed By: #### L 500.4100, L500.4050, L502.0250 #### [facility] [address] [place], [place], [id number] Laboratory - Chemistry and C hemistry - challengeOrdered By: Sergey Mathews on 08-26-2023 Cobalamin (Vitamin B12) [Mass/Vol] 858 pg/mL 211-911 [facility] No Panel InformationOrdered By: Sergey Mathews on 08-26-2023 Folate 22.10 ng/mL 3.1-55.4 [facility] Comment on above: Slight Hemolysis, Re sult may be falsely increased. Absolute lymphocyte countOrd ered By: Sergey Mathews on 08-24-2023 Lymphocytes Auto (Unsp spec) [#/Vol] 1.80 10*3/uL 0.83-4.51 [facility] Basophil percentageOrdered B y: Sergey Mathews on 08-24-2023 Basophils/100 WBC (Bld) 1.2 % 0-1 [facility] Bilirubin [Mass/Vol] 0.70 mg/dL 0.20-1.00 [facility] Comment on above: For patients on eltr ombopag therapy, use of Dimension [place] TBIL is not recommended. Chloride [Moles/Vol] 109 mmol/L 98-107 [facility] Cholesterol [Mass/Vol] 173 mg/dL <200 [facility] Comment on above: <200 mg/dL Desirable 200-240 mg/dL Borderline >240 mg/dL High Risk Eosinophils/100 WBC (Bld) 7.0 % 0-5 [facility] Glucose [Mass/Vol] 91 mg/dL 74-106 [facility] Neutrophils (Bld) [#/Vol] 2.3 10*3/uL 2.0-7.7 [facility] Neutrophils/100 WBC (Bld) 46.1 % 47-70 [facility] Potassium [Moles/Vol] 4.6 mmol/L 3.5-5.1 [facility] Protein [Mass/Vol] 7.7 g/dL 6.4-8.2 [facility] Sodium [Moles/Vol] 141 mmol/L 136-145 [facility] Triglyceride [Mass/Vol] 172 mg/dL <199 [facility] Comment on above: The drugs N-Acetylcy steine and Metamizole may falsely depress this assay.Serum Triglycerides Reference Interval Normal <150 mg/dL Borderline high 150 - 199 mg/dL High 200 - 499 mg/dL Very High > or = 500 mg/dL WBC (Bld) [#/Vol] 5.0 10*3/uL 4.4-11.0 [facility] Blood erythrocytes count (nu mber/volume)Ordered By: Sergey Mathews on 08-24-2023 RBC (Bld) [#/Vol] 4.65 10*6/uL 4.6-6.2 [facility] Blood hemoglobin measurement (mass/volume)Ordered By: Sergey Mathews on 08-24-2023 Hemoglobin (Bld) [Mass/Vol] 16.5 g/dL 13.0-16.5 [facility] Blood lymphocytes/100 leukoc ytesOrdered By: Sergey Mathews on 08-24-2023 Lymphocytes/100 WBC (Bld) 36.1 % 19-41 [facility] Blood monocytes/100 leukocyt esOrdered By: Sergey Mathews on 08-24-2023 Monocytes/100 WBC (Bld) 9.2 % 0-10 [facility] Blood platelet mean volumeOr dered By: Sergey Mathews on 08-24-2023 Platelet mean volume (Bld) [Entitic vol] 10.2 fL 6.2-12.0 [facility] Determination of erythrocyte mean corpuscular volume (MCV)Ordered By: Sergey Mathews on 08-24-2023 MCV (RBC) [Entitic vol] 103.4 fL 80-94 [facility] Hematocrit Auto (Bld) [Volum e fraction]Ordered By: Sergey Mathews on 08-24-2023 Hematocrit (Bld) [Volume fraction] 48.1 % 40-54 [facility] Laboratory - Chemistry and C hemistry - challengeOrdered By: Sergey Mathews on 08-24-2023 ALP [Catalytic activity/Vol] 65 U/L 45-117 [facility] ALT [Catalytic activity/Vol] 54 U/L 16-61 [facility] Amylase [Catalytic activity/Vol] 207 U/L 15-85 [facility] CO2 [Moles/Vol] 27.0 mmol/L 21.0-32.0 [facility] Globulin (S) [Mass/Vol] 4.1 g/dL 2.2-4.2 [facility] Urea nitrogen/Creatinine [Mass ratio] 10.4 mg/mg 10-20 [facility] Laboratory - Hematology and Cell countsOrdered By: Sergey Mathews on 08-24-2023 Erythrocyte distribution width (RBC) [Entitic vol] 47.0 fL 35.1-43.9 [facility] Erythrocyte distribution width (RBC) [Ratio] 12.4 % 11.6-14.6 [facility] Immature granulocytes/100 WBC (Bld) 0.400 % 0.0-0.9 [facility] Comment on above: IG% - Immature Granu locytes (promyelocytes, myelocytes and metamyelocytes) > 1% indicates that a LEFT SHIFT is Present. MCH (RBC) [Entitic mass] 35.5 pg 27.0-32.0 [facility] Nucleated RBC/100 WBC (Bld) [Ratio] 0 % 0-5 [facility] MCHC Auto (RBC) [Mass/Vol]Or dered By: Sergey Mathews on 08-24-2023 MCHC (RBC) [Mass/Vol] 34.3 g/dL 32-36 [facility] No Panel InformationOrdered By: Sergey Mathews on 08-24-2023 Estimated GFR (MDRD) Amer 88 mL/min >60 [facility] Comment on above: GFR Calc Estimated GFR (MDRD) Non-Af Amer 73 mL/min >60 [facility] Comment on above: Non- GFR Calc Prostate Specific Antigen Screen 0.94 ng/mL 0.00-4.00 [facility] Comment on above: This test was perfor med using the TPSA assay method for the[facility]. Values obtained with differentassay methods cannot be used interchangably.When changing PSA assays in the course of monitoring apatient, additional sequential testing should be carriedout to confirm baseline values. Platelets bldOrdered By: [place] Mathews on 08-24-2023 Platelets (Bld) [#/Vol] 188 10*3/uL 150-450 [facility] Serum or plasma albumin franck urement (mass/volume)Ordered By: Sergey Mathews on 08-24-2023 Albumin [Mass/Vol] 3.6 g/dL 3.2-5.0 [facility] Serum or plasma albumin/glob ulin mass ratioOrdered By: Sergey Mathews on 08-24-2023 Albumin/Globulin [Mass ratio] 0.9 {ratio} 0.9-2.4 [facility] Serum or plasma calcium franck urement (mass/volume)Ordered By: Sergey Mathews on 08-24-2023 Calcium [Mass/Vol] 9.1 mg/dL 8.5-10.1 [facility] Serum or plasma cholesterol in HDL measurement (mass/volume)Ordered By: Sergey Mathews on 08-24-2023 Cholesterol in HDL [Mass/Vol] 66 mg/dL >40 [facility] Comment on above: The drugs N-Acetylcy steine and Metamizole may falsely depress this assay. Reference Range HDL <40 mg/dL Low HDL Cholesterol HDL >or= 60 mg/dL High HDL Cholesterol Serum or plasma cholesterol in VLDL measurement (mass/volume)Ordered By: Sergey Mathews on 08-24-2023 Cholesterol in VLDL [Mass/Vol] 34 mg/dL 5-40 [facility] Serum or plasma creatinine m easurement (mass/volume)Ordered By: Sergey Mathews on 08-24-2023 Creatinine [Mass/Vol] 1.06 mg/dL 0.70-1.30 [facility] Comment on above: The validity of the calculated GFR & GFRAA in patients over 70 years has not been determined. Clinical correlation is essential. Serum or plasma low density lipoprotein (LDL) cholesterol measurement (mass/volume)Ordered By: Sergey Mathews on 08-24-2023 Cholesterol in LDL [Mass/Vol] 73 mg/dL 0-130 [facility] Serum or plasma urea nitroge n measurement (mass/volume)Ordered By: Sergey Mathews on 08-24-2023 Urea nitrogen [Mass/Vol] 11 mg/dL 7-18 [facility] Thin prep Papanicolaou smear with manual screeningOrdered By: Sergey Mathews on 08-24-2023 Thin prep Papanicolaou smear with manual screening 51 U/L 15-37 [facility] Thin prep Papanicolaou smear with manual screening 5 5-15 [facility] Thin prep Papanicolaou smear with manual screening 116.0 mg/L NO RANGE EST. [facility] CNOVon 10-08-2022 CNOV Office Visit (GENSWS ) LORNA VIGIL ([id number]) 1950 Date Time Provider Department 10/08/22 11:00 AM MCKENNA PINO During your visit today, we recorded the following information about you: Temperature Pulse Blood pressure Weight 97.9 degrees 73/minute 148/96 104.7 kg Mckenna Pino PA-C 10/08/2022 12:41 PM Signed FOLLOW UP VISIT - ENDOSCOPY NAME: Lorna Joe [facility] NO.: [id number] DATE OF SERVICE: 10/08/2022 : 1950 REFERRING [...] 2022 1:30 AM Gross examination performed at [facility], [address] [id number] Performing Lab Diagnostic interpretation performed at [facility], [address]# [id number] Platinum Smith: Subhash Garcia M.D. Addendum A. Immunohistochemical stain [...] which included preparing to see the patient, juyp-mz-ucin patient care, completing clinical documentation, obtaining and/or reviewing separately obtained history, counseling and educating the patient/family/caregiv er, independently interpreting results (not separately reported), and communicating results to the patient/family/caregiv er. ANITHA Tran PA-C 10/08/2022 11:19 AM Signed -Follow up with PCP for blood pressure The following instructions are important for you related to your office visit today with the [facility] General Surgeons. INSTRUCTIONS FOLLOWING A NORMAL COLONOSCOPY I discussed with you the findings of your colonoscopy. No worrisome abnormalities were noted, however due to suboptimal bowel prep the surgeon has recommended a repeat colonoscopy in 1-2 years. Will consider a split bowel prep regimen at that t (more content not included)... Normal [facility] SURGICAL PATHOLOGYon 023 Addendum A. Immunohistochemic al stain for Helicobacter pylori was performed on block A1 and is negative. B. Immunohistochemical stains for CMV, HSV I/II, and stain for PAS/D were performed on block B1 and are negative for viral inclusions and fungal organisms, respectively. Laboratory Developed Test (LDT) Disclaimer: Performance characteristics of immunohistochemical, immunofluorescent and chromogenic in-situ hybridization tests have been determined by the performing laboratory within [facility] s Naseem Whitt [facility] Pathology and Laboratory Medicine [place] ([facility], [facility], [facility], [facility], [facility], or [facility]) in a manner consistent with CLIA requirements. One or more of these tests have not been cleared or approved by the FDA. [facility] is regulated under CLIA as qualified to perform high-complexity testing. These tests are used for clinical purposes. They should not be regarded as investigational or for research. Positive and negative controls stain appropriately. [facility] Case Report Surgical Pathology Report Case: [id number] Authorizing Provider: Rand Wong MD Collected: 10/01/2022 12:42 PM Ordering Location: Ambulatory Surgery Received: 10/01/2022 04:15 PM Pathologist: Ayde Yousif MD Specimens: A) - ANTRUM (STOMACH) BIOPSY, Antral bx for H/H B) - ESOPHAGOGASTRIC JUNCTION BIOPSY [facility] Diagnosis Comment A. Immunohistochemic al stain for Helicobacter pylori will be performed on block A1 and reported in an addendum. B. Due to the presence of focal active esophagitis, immunohistochemical stains for CMV, HSV I/II, and stain for PAS/D will be performed on block B1 and reported in an addendum. [facility] FINAL DIAGNOSIS A. Stomach, antrum, biopsy: - Gastric antral and oxyntic mucosa with reactive gastropathy. - No morphologic evidence of Helicobacter pylori organisms (see comment). B. Esophagogastric junction, biopsy: - Focal active esophagitis with reactive epithelial changes (see comment). [facility] Gross Description A. ANTRUM (STOMACH) BIOPSY Received [...] 2022 1:30 AM Gross examination performed at [facility], [address] [place] [address] Performing Lab Diagnostic interpretation performed at [facility], [facility] [place] [address] CLIA# [id number] Platinum Smith: Subhash Garcia M.D. [facility] COLONOSCOPY SCREENINGon 09-11 [facility] Colonoscopyon 10-01-2022 Colonoscopy [place] [facility] Gastrointestinal Endoscopy Patient Name: Lorna Vigil Procedure Date: 10/01/2022 12:18 PM Date of : 1950 Admit Type: Outpatient Age: 72 Gender: Male Note Status: Finalized Procedure: Colonoscopy Indications: Screening for colorectal malignant neoplasm Providers: Rand Wong MD Patient Profile: Refer to note in patient chart for documentation of history and physical. Last Colonoscopy: 2010. Referring Physician: Mckenna Pino (pa) (Referring ) Medicines: See the other procedure note for documentation of the administered medications, Midazolam 4 mg IV, Fentanyl 50 micrograms IV Complications: No immediate complications. Requesting Provider: Procedure: Pre-Anesthesia Assessment: - Prior to the procedure, a History and Physical was performed, and patient medications and allergies were reviewed. The patient is competent. The risks and benefits of the procedure and the sedation options and risks were discussed with the patient. All questions were answered and informed consent was obtained. Patient identification and proposed procedure were verified by the physician in the pre-procedure area. Mental Status Examination: alert and oriented. Airway Examination: normal oropharyngeal airway and neck mobility. Respiratory Examination: clear to auscultation. CV Examination: normal. Prophylactic Antibiotics: The patient does not require prophylactic antibiotics. Prior Anticoagulants: The patient has taken no anticoagulant or antiplatelet agents. ASA Grade Assessment: II - A patient with mild systemic disease. After reviewing the risks and benefits, the patient was deemed in satisfactory condition to undergo the procedure. The anesthesia plan was to use moderate sedation / analgesia (conscious sedation). Immediately prior to administration of medications, the patient was re-assessed for adequacy to receive sedatives. The heart rate, respiratory rate, oxygen saturations, blood pressure, adequacy of pulmonary ventilation, and response to care were monitored throughout the procedure. The physical status of the patient was re-assessed after the procedure. After I obtained informed consent, the scope was passed under direct vision. Throughout the procedure, the patient's blood pressure, pulse, and oxygen saturations were monitored continuously. The Colonoscope was introduced through the anus and advanced to the cecum, identified by the appendiceal orifice, IC valve and transillumination. The colonoscopy was performed without difficulty. The patient tolerated the procedure well. The quality of the bowel preparation was 30 percent obscured. The quality of the bowel preparation was good except the ascending colon was unsatisfactory. The appendiceal orifice and the rectum were photographed. Moderate Sedation: The administration of moderate sedation was initiated at 12:52 PM. Moderate (conscious) sedation was personally administered by the endoscopist. The following parameters were monitored: oxygen saturation, heart rate, blood pressure, respiratory rate, EKG, adequacy of pulmonary ventilation, and response to care. See the other procedure note for documentation of moderate sedation with intraservice time. Findings: The perianal and digital rectal examinations were normal. Non-bleeding external and internal hemorrhoids were found. Impression: - Non-bleeding external and internal hemorrhoids. - No specimens collected. Recommendation: - Repeat colonoscopy in 1-2 years because the bowel preparation was poor of the right colon - Return to primary care physician PRN. - Patient has a contact number available for emergencies. The signs and symptoms of potential delayed complications were discussed with the patient. Return to normal activities tomorrow. Written discharge instructions were provided to the patient. - Continue present medications. - Resume previous diet. Procedure Code(s): --- Professional --- G0121, Colorectal cancer screening; colonoscopy on individual not meeting criteria for high risk Diagnosis Code(s): --- Professional --- K64.8, Other hemorrhoids Z12.11, Encounter for screening for malignant neoplasm of colon CPT copyright 2020 [employer]. All rights reserved. The codes documented in this report are preliminary and upon supervisor prep review may be revised to meet current compliance requirements. Attending Participation: I personally performed the entire procedure. Scope In: 12:52:46 PM Scope Out: 1:08:49 PM MD Rand Basurto MD 10/01/2022 1:14:08 PM This report has been signed electronically by Rand Wong MD Number of Addenda: 0 Note Initiated On: 10/01/2022 12:18 PM Estimated Blood Loss: Estimated blood loss: none. Normal [facility] EGD DIAGNOSTICon 10-01-2022 [facility] HISTORY PHYSICALon HISTORY PHYSICAL HNO ID: [id number] Author: Rand Wong MD Service: General Surgery Author Type: Physician Type: HANDP Filed: 10/01/2022 11:33 AM Note Text: HISTORY AND PHYSICAL Lorna Heath Vigil 1950 REFERRING PHYSICIAN: Sergey Mathews(Historica* CHIEF [...] bilatteral lasix eye surgery TONSILLECTOMY AND ADENOIDECTOMY CURRENT MEDICATIONS Current Outpatient Medications Medication Sig LORazepam (ATIVAN) 0.5 mg Take 0.5 mg by mouth daily at bedtime. allopurinol (ZYLOPRIM) 300 mg tablet Take 300 mg by mouth once daily. gslvnauvxk-hskedxb-gfc phor 75 mg-3 %- 3 % KGtd omeprazole [...] entered by the nurse and reviewed by ut Nursing Notes: Elsie Zavala LPN 09/03/2022 2:23 [...] the PFSH and ROS obtained by others. Mckenna Pino PA-C PHYSICAL EXAMINATION: General: The patient is 72 year old male, well rhonda (more content not included)... Normal [facility] NURSING PROGon 10-01-2022 NURSING PROG HNO ID: [id number] Author: Gloria Johnson RN Service: ? Author Type: Registered Nurse Type: Nursing Progress Note Filed: 10/01/2022 1:30 PM Note Text: Patient received in phase II via cart left lateral position, eyes closed but open to verbal stimuli, skin warm and dry, respirations regular and unlabored, denies abdominal pain or nausea. Resting comfortably on left side. Normal [facility] NURSING PROG HNO ID: [id number] Author: Gloria Johnson RN Service: ? Author Type: Registered Nurse Type: Nursing Progress Note Filed: 10/01/2022 12:16 PM Note Text: Dr Wong notified most recent bp 190/96, has been given 500ml of Lactated Ringers, ok to proceed with procedure, ordered to keep IV flowing wide open until procedure. remains at bedside. Normal [facility] NURSING PROG HNO ID: [id number] Author: Gloria Johnson RN Service: ? Author Type: Registered Nurse Type: Nursing Progress Note Filed: 10/01/2022 11:50 AM Note Text: Patient's initial bp's elevated pre procedure, 211/100 initially, after resting after changing clothes remains 202/100. Dr Wong here to see patient at bedside, aware of high bp's, reviewed home med list, pt took bp med at 8:[address] Wong said to start IV and bolus with fluid, will monitor. Normal [facility] SURGICAL PATHOLOGYon 023 ADDENDUM 1: Normal [facility] Comment on above: Order Comment: Speci men Type: TISSUE SPECIMEN Ordering Facility: [facility] Address: [address] [place] [id number] Result Comment: A. I mmunohistochemical stain for Helicobacter pylori was performed on block A1 and is negative. B. Immunohistochemical stains for CMV, HSV I/II, and stain for PAS/D were performed on block B1 and are negative for viral inclusions and fungal organisms, respectively. Laboratory Developed Test (LDT) Disclaimer: Performance characteristics of immunohistochemical, immunofluorescent and chromogenic in-situ hybridization tests have been determined by the performing laboratory within [facility]???s Naseem Alfredo Pathology and Laboratory Medicine [place] ([facility], [facility], [facility], [facility], [facility], or [facility]) in a manner consistent with CLIA requirements. One or more of these tests have not been cleared or approved by the FDA. [facility] is regulated under CLIA as qualified to perform high-complexity testing. These tests are used for clinical purposes. They should not be regarded as investigational or for research. Positive and negative controls stain appropriately. Addendum electronically signed by Ayde Yousif MD on 10/06/2022 at 12:50 PM Performed By: #### S #### [facility] CLIA [id number] [address] [place] [address] CASE REPORT Normal [facility] Comment on above: Order Comment: Chandler turner Type: TISSUE SPECIMEN Ordering Facility: [facility] Address: [address] [place] [address] Result Comment: Surg ica Pathology Report Case: [id number] Authorizing Provider: Rand Wong MD Collected: 10/01/2022 12:42 PM Ordering Location: Ambulatory Surgery Received: 10/01/2022 04:15 PM Pathologist: Ayde Yousif MD Specimens: A) - ANTRUM (STOMACH) BIOPSY, Antral bx for H/H B) - ESOPHAGOGASTRIC JUNCTION BIOPSY Performed By: #### S #### [facility] CLIA [id number] [address] [place] [address] DIAGNOSIS COMMENT Normal [facility] Comment on above: Order Comment: Chandler turner Type: TISSUE SPECIMEN Ordering Facility: [facility] Address: [address] [place] [address] Result Comment: A. I mmunohistochemical stain for Helicobacter pylori will be performed on block A1 and reported in an addendum. B. Due to the presence of focal active esophagitis, immunohistochemical stains for CMV, HSV I/II, and stain for PAS/D will be performed on block B1 and reported in an addendum. Performed By: #### S #### [facility] CLIA [id number] [address] [place] [address] FINAL DIAGNOSIS Normal [facility] Comment on above: Order Comment: Chandler turner Type: TISSUE SPECIMEN Ordering Facility: [facility] Address: [address] [place] [address] Result Comment: A. S tomach, antrum, biopsy: - Gastric antral and oxyntic mucosa with reactive gastropathy. - No morphologic evidence of Helicobacter pylori organisms (see comment). B. Esophagogastric junction, biopsy: - Focal active esophagitis with reactive epithelial changes (see comment). Performed By: #### S #### [facility] CLIA [id number] [address] [place] [address] STATES OF [facility] FINAL PERFORMING LAB Normal [facility] Comment on above: Order Comment: Speci men Type: TISSUE SPECIMEN Ordering Facility: [facility] Address: [address] [place] [address] Result Comment: Diag nostic interpretation performed at [facility], [address] [place] [address] CLIA# [id number] Platinum Smith: Subhash Garcia M.D. Performed By: #### S #### [facility] CLIA [id number] [address] [place] [address] GROSS DESCRIPTION Normal [facility] Comment on above: Order Comment: Speci men Type: TISSUE SPECIMEN Ordering Facility: [facility] Address: [address] [place] [address] Result Comment: A. A NTRUM (STOMACH) BIOPSY Received in formalin are two pieces of sarkar, soft tissue aggregating to 0.7 x 0.3 x 0.2 cm. Totally submitted in one cassette. B. ESOPHAGOGASTRIC JUNCTION BIOPSY Received in formalin is one piece of sarkar, soft tissue measuring 0.3 x 0.2 x 0.1 cm. Totally submitted in one cassette. SS October 02, 2022 1:30 AM Gross examination performed at [facility], [address] [place] [address] Performed By: #### S #### [facility] CLIA [id number] [address] [place] [address] [place] Upper GI endoscopyon 10-01- 023 Upper GI endoscopy [facility] Gastrointestinal Endoscopy Patient Name: Lorna Vigil Procedure Date: 10/01/2022 12:19 PM Date of : 1950 Admit Type: Outpatient Age: 72 Gender: Male Note Status: Finalized Procedure: Upper GI endoscopy Indications: Heartburn Providers: Rand Wong MD Patient Profile: Refer to note in patient chart for documentation of history and physical. Referring Physician: Mckenna Pino (pa) (Referring MD) Medicines: Midazolam 4 mg IV, Fentanyl 50 micrograms IV, Diphenhydramine 50 mg IV, See the other procedure note for documentation of the administered medications, Benzocaine spray Complications: No immediate complications. Requesting Provider: Procedure: Pre-Anesthesia Assessment: - Prior to the procedure, a History and Physical was performed, and patient medications and allergies were reviewed. The patient is competent. The risks and benefits of the procedure and the sedation options and risks were discussed with the patient. All questions were answered and informed consent was obtained. Patient identification and proposed procedure were verified by the physician in the pre-procedure area. Mental Status Examination: alert and oriented. Airway Examination: normal oropharyngeal airway and neck mobility. Respiratory Examination: clear to auscultation. CV Examination: normal. Prophylactic Antibiotics: The patient does not require prophylactic antibiotics. Prior Anticoagulants: The patient has taken no anticoagulant or antiplatelet agents. ASA Grade Assessment: II - A patient with mild systemic disease. After reviewing the risks and benefits, the patient was deemed in satisfactory condition to undergo the procedure. The anesthesia plan was to use moderate sedation / analgesia (conscious sedation). Immediately prior to administration of medications, the patient was re-assessed for adequacy to receive sedatives. The heart rate, respiratory rate, oxygen saturations, blood pressure, adequacy of pulmonary ventilation, and response to care were monitored throughout the procedure. The physical status of the patient was re-assessed after the procedure. After obtaining informed consent, the endoscope was passed under direct vision. Throughout the procedure, the patient's blood pressure, pulse, and oxygen saturations were monitored continuously. The Endoscope was introduced through the mouth, and advanced to the second part of duodenum. The upper GI endoscopy was accomplished without difficulty. The patient tolerated the procedure well. Moderate Sedation: See the other procedure note for documentation of moderate sedation with intraservice time. The administration of moderate sedation was initiated at 12:32 PM. Moderate (conscious) sedation was personally administered by the endoscopist. The following parameters were monitored: oxygen saturation, heart rate, blood pressure, respiratory rate, EKG, adequacy of pulmonary ventilation, and response to care. Findings: The first portion of the duodenum and second portion of the duodenum were normal. Very mildly striped erythematous mucosa without bleeding was found in the gastric antrum. Retained bile noted in stomach and duodenal bulb. Biopsies were taken with a cold forceps for histology. Verification of patient identification for the specimen was done by the nurse. Estimated blood loss was minimal. A small hiatal hernia was present. Biopsies were taken with a cold forceps for histology of GE junction because of patient's complaint. Verification of patient identification for the specimen was done by the nurse. Estimated blood loss was minimal. Impression: - Normal first portion of the duodenum and second portion of the duodenum. - Erythematous mucosa in the antrum. Biopsied. - Small hiatal hernia. Biopsied at GE junction. Recommendation: - Discharge patient to home (ambulatory). - Resume previous diet. - Continue present medications. - Await pathology results. - Follow up with Mckenna Pino PA-C via televisit for discussion of pathology results and determination of timing of future endoscopies Procedure Code(s): --- Professional --- 18718, Esophagogastroduodenos copy, flexible, transoral; with biopsy, single or multiple Diagnosis Code(s): --- Professional --- R12, Heartburn K44.9, Diaphragmatic hernia without obstruction or gangrene K31.89, Other diseases of stomach and duodenum CPT copyright 2020 [employer]. All rights reserved. The codes documented in this report are preliminary and upon supervisor prep review may be revised to meet current compliance requirements. Attending Participation: I personally performed the entire procedure. Scope In: 12:40:37 PM Scope Out: 12:46:22 PM MD Rand Basurto MD 10/01/2022 12:51:44 PM This report has been signed electronically by Rand Wong MD Number of Addenda: 0 Note Initiate (more content not included)... Normal [facility] CNOVon 09-03-2022 CNOV Office Visit (GENSWS ) LORNA VIGIL ([id number]) 1950 M Date Time Provider Department 09/03/22 1:30 PM MCKENNA PINO During your visit today, we recorded the following information about you: Temperature Pulse Blood pressure Weight 98.3 degrees 64/minute 124/86 104.4 kg Height 1.854 m Mckenna Pino PA-C 09/04/2022 12:36 PM Signed HISTORY AND PHYSICAL Lorna Joe Musa 1950 [...] Take 300 mg by mouth once daily. fulvtovmxr-xvsfwja-wdn phor 75 mg-3 %- 3 % KGtd omeprazole [...] entered by the nurse and reviewed by me Nursing Notes: Elsie Zavala LPN 09/03/2022 2:23 [...] N/A Last Colonoscopy: 2010 Elsie Zavala LPN (more content not included)... Normal [facility] Absolute lymphocyte counton 08-06-2022 Lymphocytes Auto (Unsp spec) [#/Vol] 1.91 10*3/uL 0.83-4.51 [facility] Work Phone: Basophil percentageon 2021 Basophils/100 WBC (Bld) 0.9 % 0-1 [facility] Work Phone: Bilirubin [Mass/Vol] 0.60 mg/dL 0.20-1.00 [facility] Work Phone: Comment on above: For patients on eltr ombopag therapy, use of Dimension [place] TBIL is not recommended. Chloride [Moles/Vol] 106 mmol/L 98-107 [facility] Work Phone: Cholesterol [Mass/Vol] 192 mg/dL <200 [facility] Work Phone: Comment on above: <200 mg/dL Desirable 200-240 mg/dL Borderline >240 mg/dL High Risk Eosinophils/100 WBC (Bld) 4.2 % 0-5 [facility] Work Phone: [phone] Glucose [Mass/Vol] 91 mg/dL 74-106 [facility] Work Phone: Neutrophils (Bld) [#/Vol] 2.8 10*3/uL 2.0-7.7 [facility] Work Phone: Neutrophils/100 WBC (Bld) 50.4 % 47-70 [facility] Work Phone: Potassium [Moles/Vol] 4.3 mmol/L 3.5-5.1 [facility] Work Phone: [phone] Protein [Mass/Vol] 7.6 g/dL 6.4-8.2 [facility] Work Phone: Sodium [Moles/Vol] 143 mmol/L 136-145 [facility] Work Phone: [phone] Triglyceride [Mass/Vol] 172 mg/dL <199 [facility] Work Phone: [phone] Comment on above: The drugs N-Acetylcy steine and Metamizole may falsely depress this assay.Serum Triglycerides Reference Interval Normal <150 mg/dL Borderline high 150 - 199 mg/dL High 200 - 499 mg/dL Very High > or = 500 mg/dL WBC (Bld) [#/Vol] 5.5 10*3/uL 4.4-11.0 [facility] Work Phone: Blood erythrocytes count (nu mber/volume)on 08-06-2022 RBC (Bld) [#/Vol] 4.90 10*6/uL 4.6-6.2 [facility] Work Phone: Blood hemoglobin measurement (mass/volume)on 08-06-2022 Hemoglobin (Bld) [Mass/Vol] 17.2 g/dL 13.0-16.5 [facility] Work Phone: Blood lymphocytes/100 leukoc yteson 08-06-2022 Lymphocytes/100 WBC (Bld) 34.9 % 19-41 [facility] Work Phone: Blood monocytes/100 leukocyt eson 08-06-2022 Monocytes/100 WBC (Bld) 8.9 % 0-10 [facility] Work Phone: Blood platelet mean volumeon 08-06-2022 Platelet mean volume (Bld) [Entitic vol] 10.1 fL 6.2-12.0 [facility] Work Phone: [phone] Determination of erythrocyte mean corpuscular volume (MCV)on 08-06-2022 MCV (RBC) [Entitic vol] 103.1 fL 80-94 [facility] Work Phone: Hematocrit Auto (Bld) [Volum e fraction]on 08-06-2022 Hematocrit (Bld) [Volume fraction] 50.5 % 40-54 [facility] Work Phone: [phone] Laboratory - Chemistry and C hemistry - challengeon 08-06-2022 ALP [Catalytic activity/Vol] 67 U/L 45-117 [facility] Work Phone: [phone] ALT [Catalytic activity/Vol] 46 U/L 16-61 [facility] Work Phone: [phone] CO2 [Moles/Vol] 31.0 mmol/L 21.0-32.0 [facility] Work Phone: [phone] Globulin (S) [Mass/Vol] 3.9 g/dL 2.2-4.2 [facility] Work Phone: [phone] Urea nitrogen/Creatinine [Mass ratio] 12.6 mg/mg 10-20 [facility] Work Phone: [phone] Laboratory - Hematology and Cell countson 08-06-2022 Erythrocyte distribution width (RBC) [Entitic vol] 47.2 fL 35.1-43.9 [facility] Work Phone: [phone] Erythrocyte distribution width (RBC) [Ratio] 12.3 % 11.6-14.6 [facility] Work Phone: [phone] Immature granulocytes/100 WBC (Bld) 0.700 % 0.0-0.9 [facility] Work Phone: [phone] Comment on above: IG% - Immature Granu locytes (promyelocytes, myelocytes and metamyelocytes) > 1% indicates that a LEFT SHIFT is Present. MCH (RBC) [Entitic mass] 35.1 pg 27.0-32.0 [facility] Work Phone: [phone] Nucleated RBC/100 WBC (Bld) [Ratio] 0 % 0-5 [facility] Work Phone: [phone] MCHC Auto (RBC) [Mass/Vol]on 08-06-2022 MCHC (RBC) [Mass/Vol] 34.1 g/dL 32-36 [facility] Work Phone: [phone] No Panel Informationon 08-06 Estimated GFR (MDRD) Amer 91 mL/min >60 [facility] Work Phone: Comment on above: GFR Calc Estimated GFR (MDRD) Non-Af Amer 75 mL/min >60 [facility] Work Phone: Comment on above: Non- GFR Calc Urine Microalbumin/Creatinine Ratio 61.1 mg/g CRE <30 [facility] Work Phone: Platelets bldon 08-06-2022 Platelets (Bld) [#/Vol] 211 10*3/uL 150-450 [facility] Work Phone: Serum or plasma albumin franck urement (mass/volume)on 08-06-2022 Albumin [Mass/Vol] 3.7 g/dL 3.2-5.0 [facility] Work Phone: Serum or plasma albumin/glob ulin mass ratioon 08-06-2022 Albumin/Globulin [Mass ratio] 0.9 {ratio} 0.9-2.4 [facility] Work Phone: Serum or plasma calcium franck urement (mass/volume)on 08-06-2022 Calcium [Mass/Vol] 9.1 mg/dL 8.5-10.1 [facility] Work Phone: Serum or plasma cholesterol in HDL measurement (mass/volume)on 08-06-2022 Cholesterol in HDL [Mass/Vol] 67 mg/dL >40 [facility] Work Phone: Comment on above: The drugs N-Acetylcy steine and Metamizole may falsely depress this assay. Reference Range HDL <40 mg/dL Low HDL Cholesterol HDL >or= 60 mg/dL High HDL Cholesterol Serum or plasma cholesterol in VLDL measurement (mass/volume)on 08-06-2022 Cholesterol in VLDL [Mass/Vol] 34 mg/dL 5-40 [facility] Work Phone: [phone] Serum or plasma creatinine m easurement (mass/volume)on 08-06-2022 Creatinine [Mass/Vol] 1.03 mg/dL 0.70-1.30 [facility] Work Phone: Comment on above: The validity of the calculated GFR & GFRAA in patients over 70 years has not been determined. Clinical correlation is essential. Serum or plasma low density lipoprotein (LDL) cholesterol measurement (mass/volume)on 08-06-2022 Cholesterol in LDL [Mass/Vol] 91 mg/dL 0-130 [facility] Work Phone: Serum or plasma urea nitroge n measurement (mass/volume)on 08-06-2022 Urea nitrogen [Mass/Vol] 13 mg/dL 7-18 [facility] Work Phone: Serum or plasma uric acid me asurement (mass/volume)on 08-06-2022 Urate [Mass/Vol] 4.1 mg/dL 3.5-7.2 [facility] Work Phone: Comment on above: The drugs N-Acetylcy steine and Metamizole may falsely depress this assay. Thin prep Papanicolaou smear with manual screeningon 08-06-2022 Thin prep Papanicolaou smear with manual screening 40 U/L 15-37 [facility] Work Phone: Thin prep Papanicolaou smear with manual screening 6 5-15 [facility] Work Phone: Thin prep Papanicolaou smear with manual screening 129.0 mg/L NO RANGE EST. [facility] Work Phone: Urine creatinine measurement (mass/volume)on 08-06-2022 Creatinine (U) [Mass/Vol] 211.00 mg/dL NO RANGE EST. [facility] Work Phone: Whole blood hemoglobin A1c/t otal hemoglobin ratio (mass fraction)on 08-06-2022 HbA1c (Bld) [Mass fraction] 4.9 % 3.8-5.6 [facility] Work Phone: Comment on above: Normal < 5.7 % Predi abetic 5.7 - 6.4 % Diabetic >or= 6.5 % Please note range changes. Vital Signs Date Time Vital Sign Value Performing Clinician Facility 07-04-2024 11:16-0500 Body height 185.[address] Sergey Mathews MD Work Phone: [facility] 07-04-2024 11:16-0500 Body mass index (BMI) [Ratio] 31.4 kg/m2 Dr. Sergey Mathews MD Work Phone: [facility] 07-04-2024 11:16-0500 Body temperature 98.5 [degF] Dr. Sergey Mathews MD Work Phone: [facility] 07-04-2024 11:16-0500 Body weight 107.[address] Sergey Mathews MD Work Phone: [facility] 07-04-2024 11:16-0500 Diastolic blood pressure 80 mm[Hg] Dr. Sergey Mathews MD Work Phone: [facility] 07-04-2024 11:16-0500 Heart rate 65 /min Dr. Sergey Mathews MD Work Phone: [facility] 07-04-2024 11:16-0500 Respiratory rate 16 /min Dr. Sergey Mathews MD Work Phone: [facility] 07-04-2024 11:16-0500 SaO2% (BldA) [Mass fraction] 98 % Dr. Sergey Mathews MD Work Phone: [facility] 07-04-2024 11:16-0500 Systolic blood pressure 156 mm[Hg] Dr. Sergey Mathews MD Work Phone: [facility] 10-08-2022 10:48-0500 Body temperature 97.9 [degF] Mckenna Alvarez PA-C Work Phone: [facility] 10-08-2022 10:48-0500 Body weight 104.69 kg Mckenna Diablo Grande PA-C Work Phone: [facility] 10-08-2022 10:48-0500 Diastolic blood pressure 96 mm[Hg] Mckenna Alvarez PA-C Work Phone: [facility] 10-08-2022 10:48-0500 Heart rate 73 /min Mckenna Diablo Grande PA-C Work Phone: [facility] 10-08-2022 10:48-0500 SaO2% (BldA) [Mass fraction] 99 % Mckenna Diablo Grande PA-C Work Phone: [facility] 10-08-2022 10:48-0500 Systolic blood pressure 148 mm[Hg] Mckenna Alvarez PA-C Work Phone: [facility] 10-01-2022 13:48-0500 Diastolic blood pressure 95 mm[Hg] Rand Wong MD Work Phone: [facility] 10-01-2022 13:48-0500 Heart rate 65 /min Rand Wong MD Work Phone: [facility] 10-01-2022 13:48-0500 Respiratory rate 16 /min Rand Wong MD Work Phone: [facility] 10-01-2022 13:48-0500 SaO2% (BldA) [Mass fraction] 95 % Rand Wong MD Work Phone: [facility] 10-01-2022 13:48-0500 Systolic blood pressure 195 mm[Hg] Rand Wong MD Work Phone: [facility] 10-01-2022 11:33-0500 Body temperature 96.6 [degF] Rand Wong MD Work Phone: [facility] 10-01-2022 11:33-0500 Body weight 104.4 kg Rand Wong MD Work Phone: [facility] 09-03-2022 13:27-0500 Body height 185.4 cm Mckenna Alvarez PA-C Work Phone: [facility] 09-03-2022 13:27-0500 Body temperature 98.29 [degF] Mckenna Diablo Grande PA-C Work Phone: [facility] 09-03-2022 13:27-0500 Body weight 104.42 kg Mckenna Diablo Grande PA-C Work Phone: [facility] 09-03-2022 13:27-0500 Diastolic blood pressure 86 mm[Hg] Mckenna Diablo Grande PA-C Work Phone: [facility] 09-03-2022 13:27-0500 Heart rate 64 /min Mckenna Pino PA-C Work Phone: [facility] 09-03-2022 13:27-0500 SaO2% (BldA) [Mass fraction] 99 % Mckenna Pino PA-C Work Phone: [facility] 09-03-2022 13:27-0500 Systolic blood pressure 124 mm[Hg] Mckenna Pino PA-C Work Phone: [facility] Encounters Encounter Date Encounter Type Care Provider Facility Start: 10-06-2024 ambulatory Sergey Mathews Facility:[facility] Start: 10-04-2024 End: 10-04-[address] Sergey Mathews MD Work Phone: [facility] Work Phone: Start: 10-04-2024 End: 10-04-[address] Sergey Mathews MD -[facility] Start: 10-04-2024 End: 10-04-2024 ambulatory Sergey Mathews Facility:[facility] Start: 07-04-2024 End: 07-04-2024 Patient encounter procedure Sd ZHANG [facility] Work Phone: Start: 07-04-2024 End: 07-04-2024 ambulatory Sd ZHANG Facility:[facility] Start: 02-23-2024 End: 02-23-2024 ambulatory Sergey Mathews Facility:[facility] Start: 08-26-2023 End: 08-26-2023 ambulatory [facility] Work Phone: Start: 08-26-2023 End: 08-26-2023 Patient encounter procedure [facility] Start: 08-24-2023 End: 08-24-2023 ambulatory [facility] Work Phone: Start: 08-24-2023 End: 08-24-2023 Patient encounter procedure [facility] Start: 10-08-2022 End: 10-09-2022 ambulatory Mckenna Pino Facility:[facility] Start: 10-08-2022 End: 10-08-2022 Patient encounter procedure Mckenna Pino PA-C Work Phone: General Surgery Comment on above: Gastroesophageal ref lux disease with esophagitis without hemorrhage (Primary Dx); Erythematous gastropathy; Hiatal hernia Start: 10-01-2022 End: 10-01-2022 ambulatory Rand Wong Facility:[facility] Start: 10-01-2022 End: 10-01-2022 Subsequent hospital visit by physician Rand Wong MD Work Phone: Ambulatory Surgery Comment on above: Special screening fo r malignant neoplasms, colon [Z12.11] Start: 09-03-2022 End: 09-03-2022 ambulatory Mckenna Pino Facility:[facility] Start: 09-03-2022 End: 09-03-2022 Patient encounter procedure Mckenna Pino PA-C Work Phone: General Surgery Comment on above: Encounter for screen ing for malignant neoplasm of colon (Primary Dx); Bilateral upper abdominal discomfort Start: 08-06-2022 End: 08-06-2022 ambulatory [facility] Work Phone: Start: 08-06-2022 End: 08-06-2022 Patient encounter procedure [facility] Procedures Date Procedure Procedure Detail Performing Clinician Start: 10-01-2022 Level iv surg pathology gross&microscopic exam Rand Wong MD Work Phone: Start: 10-01-2022 Esophagogastroduodenoscopy transoral diagnostic Mckenna Pino PA-C Work Phone: Start: 10-01-2022 Colonoscopy flx dx w/collj spec when pfrmd Mckenna Pino PA-C Work Phone: Start: 10-01-2022 Colonoscopy Mckenna ZHANG-Delia Work Phone: Start: 05-21-2011 Colonoscopy Mckenna Pino PA-C Work Phone: Plan of Treatment Date Care Activity Detail Author Start: 10-01-2023 Colonoscopy COLONOSCOPY [facility] Start: 10-01-2023 COLORECTAL CANCER SCREENING COLORECTAL CANCER SCREENING [facility] Start: 04-10-2023 Covid-19 Vaccine ( season) Covid-19 Vaccine () [facility] Start: 04-10-2023 Influenza vaccination Influenza Vacc ine (#1) [facility] Start: 08-10-2022 ADVANCE DIRECTIVE DISCUSSION ADVANCE DIRECTIVE DISCUSSION [facility] Start: 08-10-2022 DEPRESSION ASSESSMENT DEPRESSION ASS ESSMENT [facility] Start: 05-21-2021 Colonoscopy COLONOSCOPY [facility] Start: 05-21-2021 COLORECTAL CANCER SCREENING COLORECTAL CANCER SCREENING [facility] Start: 2014 PNEUMOCOCCAL: 65+ (1 - PCV) PNEUMOCOCCAL: 65+ (1 - PCV) [facility] Start: 2009 RSV Vaccine (1 - 1-d ose 60+ series) RSV Vaccine (1 - 1-dose 60+ series) [facility] Start: 1999 SHINGRIX VACCINE (1 of 2) SHINGRIX V ACCINE (1 of 2) [facility] Start: 1994 COLOGUARD (FIT-DNA) COLOGUARD (FIT-D NA) [facility] Start: [address] COLONOGRAPHY [facility] Start: 1994 DIABETES SCREEN DIABETES SCREEN [facility] Start: 1994 Diabetes Screening Diabetes Screenin g [facility] Start: 1994 FECAL OCCULT BLOOD FECAL OCCULT BLOO D [facility] Start: 1994 SIGMOIDOSCOPY SIGMOIDOSCOPY [facility] Start: 1984 Lipid 1996 panel - S diomedes or Plasma Lipid Screening [facility] Start: 1984 LIPID SCREEN LIPID SCREEN [facility] Start: 1968 Urine microalbumin profile [facility] Start: 1967 HEPATITIS C SCREENING HEPATITIS C SC CELESTINE [facility] Start: 1949 ABDOMINAL AORTIC ANE URYSM SCREENING ABDOMINAL AORTIC ANEURYSM SCREENING [facility] Immunizations Immunization Date Immunization Notes Care Provider Rubia bazzi 05-09-2022 influenza virus vaccine, unspecified formulation Rand Wong MD Work Phone: [facility] 10-31-2020 Covid (Moderna) [facility] 10-03-2020 Covid (Moderna) [facility] Payers Date Payer Category Payer Self-pay [id number] 2022 Medicare SELF 2022 Private Health Insurance [id number] 2021 Private Health Insurance [id number] 2014 Medicare [id number] 2014 Medicare MEDICARE MEDICAR E A AND B [id number] 2014-Present [phone] [place] [address] Medicare [id number] Unknown [id number] Unknown [id number] Unknown [id number] Unknown [id number] Social History Date Type Detail Facility [facility]: [facility]19-[facility] Start: 1950 Sex Assigned At Male [facility] Start: 09-03-2022 [facility] smoked tobacco [facility] Start: 09-03-2022 End: 10-01-2022 Tobacco use and exposure Smokeless tobacco non-user [facility] Start: 09-03-2022 Alcohol intake Current drinke r of alcohol (finding) [facility] Start: 1950 [facility] Start: 10-19-2020 End: 10-01-2022 Tobacco smoking status NHIS Ex-smoker [facility] End: 08-10-1988 History of tobacco use Current smoker [facility] End: 08-10-1988 History of tobacco use Cigarette Smoker [facility] Start: 09-03-2022 End: 10-01-2022 Cigarettes smoked current (pack per day) - Reported 1 [facility] Start: 10-01-2022 End: 10-08-2022 Alcohol intake Ex-drinker (finding) [facility] Start: 10-01-2022 Alcohol Comment 1-2 beers a day [facility] Start: 09-03-2022 End: 10-01-2022 Tobacco use panel [facility] National Score (1-10 0), lower number is lower risk 34 [facility] Start: 10-16-2024 Sex Male (finding) [facility] Clinical Notes 09-03-2022 to 10-08-2022 Patient InstructionsMckenna Pino PA-C - 10/08/2022 10:59 AM Gloria Johnson RN - 10/01/2022 1:18 PM Gloria Johnson RN - 10/01/2022 12:21 PM Gloria Johnson RN - 10/01/2022 12:15 PM EST Note Date & Type Note Facility 10-08-2022 Note HNO ID: [id number] Author: Mckenna Pino PA-C Service: ? Author Type: Physician Billet Shearer Type: Progress Notes Filed: 10/08/2022 12:41 PM Note Text: FOLLOW UP VISIT - ENDOSCOPY NAME: Lorna Vigil [facility] NO.: [id number] DATE OF SERVICE: 10/08/2022 : 1950 REFERRING [...] 2022 1:30 AM Gross examination performed at [facility], [address] [place] [address] Performing Lab Diagnostic interpretation performed at [facility], [address] [place] [address] CLIA# [id number] Platinum Smith: Subhash Garcia M.D. Addendum A. Immunohistochemical stain [...] which included preparing to see the patient, [id number] patient care, completing clinical documentation, obtaining and/or reviewing separately obtained history, counseling and educating the patient/family/caregiver, independently interpreting results (not separately reported), and communicating results to the patient/family/caregiver. Mckenna Pino PA-C [facility] 10-08-2022 Instructions Mckenna Pino PA-C - 10/08/2022 11:19 AM EST -Follow up with PCP for blood pressure The following instructions are important for you related to your office visit today with the [facility] General Surgeons. INSTRUCTIONS FOLLOWING A NORMAL [...] you should contact our office immediately @ [phone] and ask to be transferred to the General Surgery department. documented in this encounter [facility] 10-08-2022 History of Present illness Narrative FOLLOW UP VISIT - ENDOSCOPY [facility] NO.: [id number] DATE OF SERVICE: 10/08/2022 : 1950 REFERRING [...] 2022 1:30 AM Gross examination performed at [facility] [id number] Performing Lab Diagnostic interpretation performed at [facility], [address] [address] CLIA# [id number] Platinum Smith: Subhash Garcia M.D. Addendum A. Immunohistochemical stain [...] which included preparing to see the patient, [id number] patient care, completing clinical documentation, obtaining and/or reviewing separately obtained history, counseling and educating the patient/family/caregiver, independently interpreting results (not separately reported), and communicating results to the patient/family/caregiver. Mckenna Pino PA-C documented in this encounter [facility] 10-01-2022 Note HNO ID: [id number] Author: Gloria Johnson RN Service: ? Author Type: Registered Nurse Type: Nursing Progress Note Filed: 10/01/2022 12:22 PM Note Text: Dr Wong aware of most recent bp is 203/103, will plan to proceed with procedure. [facility] 10-01-2022 Nurse Note Patient received in phase [...] fluid, will monitor. documented in this encounter [facility] 10-01-2022 History and physical note [...] 11:45 AM EST HISTORY AND PHYSICAL Lorna Joe Musa 1950 [...] Take 300 mg by mouth once daily. [id number]-yqcrxom-wvzgwsq 75 mg-3 %- 3 % KGtd omeprazole [...] entered by the nurse and reviewed by ut Nursing Notes: Elsie Zavala LPN 09/03/2022 2:23 [...] the PFSH and ROS obtained by others. Mckenna Pino PA-C PHYSICAL EXAMINATION: General: The patient is 72 year old male, well nourished, well hydrated in no acute distress. The patient is oriented to time, place, and person. VITALS: Blood pressure 124/86, pulse 64, temperature 36.8 C (98.3 F), height 185.4 cm (6' 1), weight 104.4 kg (230 lb 3.2 oz), [...] patient was offered a surgery/procedure at a [facility] facility. I have counseled the [...] letter to requesting physician via US mail. Mckenna Pino PA-C HISTORY AND PHYSICAL Lorna Joe Musa 1950 [...] Take 300 mg by mouth once daily. nxtoqgibhv-kdktspx-mrjbvyc 75 mg-3 %- 3 % KGtd omeprazole [...] entered by the nurse and reviewed by ut Nursing Notes: Elsie Zavala LPN 09/03/2022 2:23 [...] the PFSH and ROS obtained by others. Mckenna Pino PA-C PHYSICAL EXAMINATION: General: The patient is 72 year old male, well nourished, well hydrated in no acute distress. The patient is oriented to time, place, and person. VITALS: Blood pressure 124/86, pulse 64, temperature 36.8 C (98.3 F), height 185.4 cm (6' 1), weight 104.4 kg (230 lb 3.2 oz), [...] patient was offered a surgery/procedure at a [facility]. I have counseled the patient regarding the [...] letter to requesting physician via US mail. Mckenna Pino PA-C documented in this encounter [facility] 09-03-2022 Note HNO ID: [id number] Author: Mckenna Pino PA-C Service: ? Author Type: Physician Billet Shearer Type: Progress Notes Filed: 09/04/2022 12:36 PM Note Text: HISTORY AND PHYSICAL Lorna Vigil 1950 REFERRING [...] Take 300 mg by mouth once daily. exhturrfpg-ixonjij-wadqyjm 75 mg-3 %- 3 % KGtd omeprazole [...] entered by the nurse and reviewed by ut Nursing Notes: Elsie Zavala LPN 09/03/2022 2:23 [...] the PFSH and ROS obtained by others. Mckenna Pino PA-C PHYSICAL EXAMINATION: General: The patient is 72 year old male, well nourished, well hydrated in no acute distress. The patient is oriented to time, place, and person. VIT (more content not included)... [facility] 09-03-2022 Nurse Note REVIEW OF SYSTEMS: General: [...] Elsie Zavala LPN documented in this encounter [facility] 09-03-2022 History of Present illness [...] Take 300 mg by mouth once daily. koatbzfkbb-rfryfzg-kkuzrpx 75 mg-3 %- 3 % KGtd omeprazole [...] entered by the nurse and reviewed by ut Nursing Notes: Elsie Zavala LPN 09/03/2022 2:23 [...] the PFSH and ROS obtained by others. Mckenna Pino PA-C PHYSICAL EXAMINATION: General: The patient is 72 year old male, well nourished, well hydrated in no acute distress. The patient is oriented to time, place, and person. VITALS: Blood pressure 124/86, pulse 64, temperature 36.8 C (98.3 F), height 185.4 cm (6' 1), weight 104.4 kg (230 lb 3.2 oz), [...] patient was offered a surgery/procedure at a [facility] facility. I have counseled the [...] letter to requesting physician via US mail. Mckenna Pino PA-C documented in this encounter [facility] Evaluation note No assessment inform ation available [facility] Work Phone: Evaluation note Diagnosis Encounter for screening for malignant neoplasm of colon- Primary Special screening for malignant neoplasms, colon Bilateral upper abdominal discomfort Abdominal pain, right upper quadrant [facility] Gastroesophageal reflux disease with esophagitis without hemorrhage- Primary Erythematous gastropathy Unspecified gastritis and gastroduodenitis without mention of hemorrhage Hiatal hernia Diaphragmatic hernia without mention of obstruction or gangrene documented [facility] Screening for colon cancer- Primary Special screening for malignant neoplasms, colon Special screening for malignant neoplasms, colon Upper abdominal pain Abdominal pain, other specified site Gastroesophageal reflux disease, unspecified whether esophagitis present documented in this encounter [facility] Outpatient Procedure (Routine) - Closed Specialty Diagnoses / Procedures Referred By Timothy harris Referred To Contact [facility] Diagnoses Special screening for malignant neoplasms, colon Upper abdominal pain Gastroesophageal reflux disease, unspecified whether esophagitis present Procedures EGD DIAGNOSTIC ESOPHAGOGASTRODUODENOSC OPY TRANSORAL DIAGNOSTIC Mckenna Pino PA-C [address] [place] [address] [facility] Disease [address] [address] Referral ID Status Reason Start Date Expiration Date V isits Requested Visits Authorized [id number] Closed Auto-Generate d Referral 09/03/2022 09/03/2023 1 1 * Outpatient Procedure (Routine) - Closed Specialty Diagnoses / Procedures Referred By Contbenjamín t Referred To Contact [facility] Diagnoses Special screening for malignant neoplasms, colon Upper abdominal pain Gastroesophageal reflux disease, unspecified whether esophagitis present Procedures COLONOSCOPY SCREENING COLONOSCOPY FLX DX W/COLLJ SPEC WHEN PFRMD Mckenna Pino PA-C [address] [place] [address] [facility] Disease [address] [address] Referral ID Status Reason Start Date Expiration Date V isits Requested Visits Authorized [id number] Closed Auto-Generate d Referral 09/03/2022 09/03/2023 1 1 [facility] ([facility]ative)No reason for referral information availableWMercy [facility] Work Phone: Rewtzj for visit Narrative* Outpatient Procedure (Routine) - Closed Specialty Diagnoses / Procedures Referred By Timothy harris Referred To Contact [facility] Diagnoses Special screening for malignant neoplasms, colon Upper abdominal pain Gastroesophageal reflux disease, unspecified whether esophagitis present Procedures EGD DIAGNOSTIC ESOPHAGOGASTRODUODENOSC OPY TRANSORAL DIAGNOSTIC Mckenna Pino PA-C [address] [place] [address] [facility] Disease [address] [address] Referral ID Status Reason Start Date Expiration Date V isits Requested Visits Authorized [id number] Closed Auto-Generate d Referral 09/03/2022 09/03/2023 1 1 [facility] Family History Relationship Condition Age at Onset Recorded Date/T melvin father Coronary artery disease 60 brother Hypertension Unknown Summary Purpose Advance Directives No Advanced Directives Records FoundNo Advanced Directives Records Found Medications Administered Section Inactive Administered Medications - up to 3 most recent administrations Medication Order MAR Action Action Date Dose Rate Site benzocaine 20% 1 [place] (TOPEX) 1 [place], TOPICAL, DIRECTED, Starting on Thu10/01/22 at 1330, [...] Given 10/01/2022 1:01 PM EST 50 mcg Given 10/01/2022 12:32 PM EST 50 mcg lactated ringers iv infusion 75 mL/hr, INTRAVENOUS, CONTINUOUS, Starting on Thu10/01/22 at 1200, Until Thu10/01/22 at 1319, Preprocedure New Bag/Syringe/Bottle 10/01/2022 11:40 AM EST 30 mL/hr 30 mL/hr Hand, Right midazolam 1-5 mg injection (VERSED) 1-5 mg, INTRAVENOUS, DIRECTED, Starting on Thu10/01/22 at 1330, Until Thu10/01/22 at 1729, DOSING DIRECTED BY PHYSICIAN FOR PROCEDURAL SEDATION ONLY, Intraprocedure Given 10/01/2022 1:00 PM EST 2 mg Given 10/01/2022 12:52 PM EST 2 mg Given 10/01/2022 12:36 PM EST 1 mg Chief Complaint and Reason for Visit Chief Complaint Admit Date COUGH, SORE THROAT July 04, 2024 11:00am Additional Source Comments Goals (unrecognized section and content) Goals may be documented in a n alternate sectionGoals may be documented in an alternate sectionGoals may be documented in an alternate sectionGoals may be documented in an alternate section Source Comments (unrecognize d section and content) In the event this informatio n is protected by the Federal Confidentiality of Alcohol and Drug Abuse Patient Records regulations: The Federal rules restrict any use of the information to criminally investigate or prosecute any alcohol or drug abuse patient.[facility] CenterIn the event this information is protected by the Federal Confidentiality of Alcohol and Drug Abuse Patient Records regulations: The Federal rules restrict any use of the information to criminally investigate or prosecute any alcohol or drug abuse patient.[facility] CenterIn the event this information is protected by the Federal Confidentiality of Alcohol and Drug Abuse Patient Records regulations: The Federal rules restrict any use of the information to criminally investigate or prosecute any alcohol or drug abuse patient.[facility] Reason for Visit (unrecogniz ed section and content) Reason Comments Consult Colonoscopy/ EGD Reason Comments Follow Up EGD and colonoscopy follow up Care Teams (unrecognized sec tion and content) [employer] Relationship Specialty Start Date End Date Sergey Mathews(Historical), PCP - General Family Medicine 08/26/22 [employer] Relationship Specialty Start Date End Date Sergey Mathews(Historical)MD PCP - General Family Medicine 08/26/22 [employer] Relationship Specialty Start Date End Date Sergey Mathews(Historical)MD PCP - General Family Medicine 08/26/22 Team Status: Active Member Role Status Dates Dr. Gómez Power MD Family Provider Active Dr. Sergey Mathews MD Primary Care Provider Active Team Status: Inactive Member Role Status Dates Dr. Sergey Mathews MD Primary Care Provider, Attending Татьяна liu Active Team Status: Active Member Role Status Dates Dr. Sergey Mathews MD Primary Care Provider, Attending Татьяна liu Active Team Status: Inactive Member Role Status Dates Dr. Sergey Mathews MD Primary Care Provider Active Start: July 04, 2024 End: July 04, 2024 Dr. Sergey Mathews MD Referring Provider Active St art: July 04, 2024 End: July 04, 2024 dS ZHANG, PA Attending Provider Active Start: July 04, 2024 End: July 04, 2024 Team Status: Inactive Member Role Status Dates Dr. Sergey Mathews MD Primary Care Provider Active Start: October 04, 2024 End: October 04, 2024 Dr. Sergey Mathews MD Attending Provider Active St art: October 04, 2024 End: October 04, 2024 Dr. Sergey Mathews MD Referring Provider Active St art: October 04, 2024 End: October 04, 2024 (unrecognized sect ion and content) No Status Records FoundNo Status Records Found INFORMATION SOURCE (unrecogn ized section and content) DATE CREATED AUTHOR 10/14/2022 [facility] DATE CREATED AUTHOR AUTHOR'S ORGANIZ ATION 10/17/2024 [facility] FOR RECORDS PERTAINING TO PATIENTS WHO ARE [...] BE BASED ON THE PRIMARY CLINICAL RECORDS. [employer] provides no warranty or guarantee of the accuracy or completeness of information in this document.
== END | disposition home or self-care (01) ==
LOC: MFPLAB 13:41
PROVIDERS: PCP Family Medicine
DX: D64.9 Anemia, unspecified (principal); R21 Rash and other nonspecific skin eruption
CPT/HCPCS: 36415; 80048; 82607; 85025; 85652; 86140

== ENCOUNTER → 2025-01-30 | Outpatient (CLI) | payer MEDICARE, OTHER, SELFPAY ==
[2025-01-30 11:54] LABS: Anion Gap 12 (5-15); BUN 16 mg/dL (4-19); BUN/Creat Ratio 12.7 RATIO (10-20); Carbon Dioxide 23.3 mmol/L (21.0-32.0); Chloride 96 mmol/L (98-108); Creatinine, Serum 1.28 mg/dL (0.70-1.20); EST Glomerular Filtration Rate 58 (>60); Glucose 100 mg/dL (70-99); Potassium 5.1 mmol/L (3.3-5.1); Sodium Level 131 mmol/L (133-145)
--- OUTSIDE RECORDS SUMMARY | 2025-01-30 20:41 | XMS RPT_ITS | CCD ---
Author Organization [facility] Care Team Providers Care Warehouse Shipping Associate Name Role Phone Segrey Mathews MD(Historical) Primary Care Provid er Unavailable Alvarez, Mckenna Attending Unavailable Rand Wong Attending Unavailable Graf Mckenna Referring Unavailable , Mckenna Attending Unavailable Rand Wong Referring Unavailable Reid PEDRAZA, Dr. Rincon Primary Care Provider Dr. Sergey Mathews MD Referring Provider [phone] Sd Magallanes Attending Provider Reid PEDRAZA, Dr. Rincon Attending Provider Dr. Sergey Mathews MD Primary Care Provider Reid PEDRAZA, Dr. Rincon Referring Provider Gilbert Smith Attending Provider Gilbert Parkinson Attending Unavailable Sergey Mathews Primary Care Unavailable Sergey Mathews Attending Unavailable Sergey Mathews Primary Care Unavailable Sergey Mathews Referring Unavailable Sergey Mathews Attending Unavailable Sergey Mathews Primary Care Unavailable Sergey Mathews Primary Care Unavailable Sd Magallanes Attending Unavailable Sergey Mathews Referring Unavailable Allergies Allergy Classification Reported Allergen(s) Allergy Type Date of Onset Reaction(s) Facility (5 sources) Escitalopram Drug Allergy 10-18-2020 rapid pulse [facility] (5 sources) Lisinopril Drug Allergy 10-18-2020 cough [facility] (1 source) Escitalopram Drug Allergy 07-04-2024 [facility] Repository (1 source) Lisinopril Drug Allergy 07-04-2024 [facility] Repository Medications Current Medications Medication Drug Class(es) Dates Sig (Normalized) Sig (Original) allopurinol 300 mg oral tablet (8 sources) Xanthine Oxidase Inhibitor Start: 10-18-2020 take 1 tablet by mouth once daily Allopurinol 300 mg tablet Active 300 mg PO DAILY October 18, 2020 1:00am Comment on above: Take 300 mg by mouth once daily. benzonatate 200 mg oral capsule (2 sources) Non-narcotic Antitussive Start: 07-04-2024 take 1 capsule by mouth three times daily as needed for cough Benzonatate 200 mg capsule Active 200 mg PO THREE TIMES A DAY as needed for cough July 04, 2024 1:00am bisoprolol fumarate 10 mg / hydroCHLOROthiazide 6.25 mg oral tablet (5 sources) Thiazide Diuretic, beta-Adrenergic Gene Start: 10-18-2020 Bisoprolol-Godfrey chlorothiazide 10-6.25 mg tablet Active 1 {tbl} PO DAILY October 18, 2020 1:00am Start: 10-18-2020 take 1 tablet by julianna th once daily Bisoprolol-Hydrochlorothiazide Active 1 TABLET PO DAILY October 18, 2020 12:00am cholecalciferol 0.025 mg oral tablet (2 sources) Vitamin D Start: 07-04-2024 take 1 tablet by mouth once daily Cholecalciferol (Vitamin D3) 25 mcg (1,000 unit) tablet Active 25 ug PO daily July 04, 2024 1:00am diclofenac sodium 75 mg delayed release oral tablet (5 sources) Nonsteroidal Anti-inflammatory Drug Start: 10-18-2020 take 1 tablet by mouth once daily Diclofenac Sodium 75 mg tablet,delayed release (DR/EC) Active 75 mg PO DAILY October 18, 2020 1:00am Lactobacillus Combination No.4 (Probiotic) 3 billion cell capsule (2 sources) Start: 07-04-2024 take 3 capsules by mouth once daily Lactobacillus Combination No.4 (Probiotic) 3 billion cell capsule Active 3000 NMA PO daily July 04, 2024 1:00am administer with a meal LORazepam 0.5 mg oral tablet (8 sources) Benzodiazepine Start: 10-18-2020 take 1 tablet by mouth once daily as needed Lorazepam 0.5 mg tablet Active 0.5 mg PO DAILY as needed October 18, 2020 1:00am Comment on above: Take 0.5 mg by mouth daily at bedtime. methylPREDNISolone 4 mg oral tablet (2 sources) Corticosteroid Start: 07-04-2024 take 1 tablet by mouth once Methylprednisolone (Medrol (Andrews)) 4 mg tablets,dose pack Active 0 PO per package directions July 04, 2024 1:00am PO PER PKG DIR Multivitamin tablet (2 sources) Start: 07-04-2024 Multivitamin tablet Active 1 {tbl} PO daily July 04, 2024 1:00am omeprazole 20 mg delayed release oral capsule (15 sources) Proton Pump Inhibitor Start: 07-04-2024 take [...] once daily. telmisartan 20 mg oral tablet (2 sources) Angiotensin 2 Receptor Gene Start: 4 take 1 tablet by mouth once daily Telmisartan 20 mg tablet Active 20 mg PO daily July 04, 2024 1:00am vitamin B12 (2 sources) Vitamin B12 Start: 4 take 1 tablet by mouth once daily [...] daily. cyclobenzaprine hydrochloride 5 mg oral tablet (5 sources) Muscle Relaxant Start: 10-18-2020 End: 07-04-2024 take 1 tablet by mouth at bedtime Cyclobenzaprine 5 mg tablet Discontinued 5 mg PO AT BEDTIME October 18, 2020 1:00am July 04, 2024 12:02pm kuvdsuggwt-gsrgife-oo mphor 75 mg-3 %- 3 % KGtd (3 sources) diclofenac-menth ol-c amphor 75 mg-3 %- 3 % KGtd polyethylene glycol [id number] [id number] mg / potassium chloride 2970 mg / sodium bicarbonate 6740 mg / sodium chloride 5860 mg / sodium sulfate 94571 mg powder for oral solution (1 source) [...] quadrant pain] Onset: 10-01-2022 Episodic Conduction disorders (5 sources) Right bundle branch block; Translations: [Unspecified right bundle-branch block] 10-18-2020 Chronic Deficiency and other anemia (1 source) Anemia, unspecified; Translations: [Anemia, unspecified] Onset: 01-26-2025 Episodic Esophageal disorders (3 sources) Gastro-esophageal reflux disease with esophagitis; Translations: [Gastroesophageal reflux disease with esophagitis without hemorrhage] Onset: 10-01-2022 Chronic Esophageal disorders (1 source) Esophageal disorders; Translations: [Gastroesophageal reflux disease with esophagitis without hemorrhage] Onset: 10-08-2022 Essential hypertension (6 sources) Essential hypertension; Translations: [Essential (primary) hypertension] Onset: 10-16-2024 10-18-2020 Chronic Gastritis and duodenitis (2 sources) Erythematous gastropathy; Translations: [Gastritis, unspecified, without bleeding] Onset: 10-08-2022 Episodic Other screening for suspected conditions (not mental disorders or infectious disease) (5 sources) Patient encounter status; Translations: [Encounter for screening for malignant neoplasm of colon] Onset: 10-01-2022 Episodic Results Test Name Value Interpretation Reference Range Facility Absolute lymphocyte countOrd ered By: Gilbert Parkinson on 01-23-2025 Lymphocytes Auto (Unsp spec) [#/Vol] 1.82 10*3/uL 0.83-4.51 [facility] Absolute neutrophil countOrd ered By: Gilbert Wardbernice on 01-23-2025 Neutrophils (Bld) [#/Vol] 12.6 10*3/uL High 2.0-7.7 [facility] Anion gap in Serum or Plasma Ordered By: Gilbert Desiteresa on 01-23-2025 Anion gap [Moles/Vol] 13 mmol/L 5-15 [facility] Automated lymphocyte count a s percentage of total leukocytesOrdered By: Gilbert Parkinson on 01-23-2025 Lymphocytes/100 WBC Auto (Unsp spec) 12.0 % Low 19-41 [facility] BUN/creatinine ratioOrdered By: [facility] on 01-23-2025 Urea nitrogen/Creatinine [Mass ratio] 22.1 mg/mg High 10-20 [facility] Basic Metabolic Profile (BMP )on 01-23-2025 BUN/CRE 22.1 RATIO High 10-20 [facility] Comment on above: Performed By: #### L 100.0100, L500.2500, L101.9900, L501.6710 #### [facility] [address] [place], [address] Calcium [Mass/Vol] 9.0 mg/dL Normal 7.6-11.0 [facility] Comment on above: Performed By: #### L 100.0100, L500.2500, L101.9900, L501.6710 #### [facility] [address] [place], [address] Chloride [Moles/Vol] 102 mmol/L Normal 98-108 [facility] Comment on above: Performed By: #### L 100.0100, L500.2500, L101.9900, L501.6710 #### [facility] [address] [place], [address] CO2 [Moles/Vol] 21.3 mmol/L Normal 21.0-32.0 [facility] Comment on above: Performed By: #### L 100.0100, L500.2500, L101.9900, L501.6710 #### [facility] [address] [place], [address] Creatinine [Mass/Vol] 1.49 mg/dL High 0.70-1.20 [facility] Comment on above: Performed By: #### L 100.0100, L500.2500, L101.9900, L501.6710 #### [facility] [address] [place], [address] GAP 13 Normal 5-15 [facility] Comment on above: Performed By: #### L 100.0100, L500.2500, L101.9900, L501.6710 #### [facility] [address] [place], [address] GFR/1.73 sq M.predicted among non-blacks MDRD (S/P/Bld) [Vol rate/Area] 49 mL/min/{1.73_m2} Low >60 [facility] Comment on above: Result Comment: mL/m in/1.73m2 CKD-EPI Creatinine Equation (2020) Performed By: #### L 100.0100, L500.2500, L101.9900, L501.6710 #### [facility] [address] [place], [address] Glucose [Mass/Vol] 118 mg/dL High 70-99 [facility] Comment on above: Performed By: #### L 100.0100, L500.2500, L101.9900, L501.6710 #### [facility] [address] [place], [address] Potassium [Moles/Vol] 4.8 mmol/L Normal 3.3-5.1 [facility] Comment on above: Performed By: #### L 100.0100, L500.2500, L101.9900, L501.6710 #### [facility] [address] [place], [address] Sodium [Moles/Vol] 136 mmol/L Normal 133-145 [facility] Comment on above: Performed By: #### L 100.0100, L500.2500, L101.9900, L501.6710 #### [facility] [address] [place], [address] Urea nitrogen [Mass/Vol] 33 mg/dL High 4-19 [facility] Comment on above: Performed By: #### L 100.0100, L500.2500, L101.9900, L501.6710 #### [facility] [address] [place], [address] Basophil percentageOrdered B y: Gilbert McMorrow on 01-23-2025 Basophils/100 WBC (Bld) 0.4 % 0-1 [facility] CBC W/Diff, Automatedon 01-08 Absolute Lymph 1.82 X10 3/uL Normal 0.83-4.51 [facility] Comment on above: Performed By: #### L 100.0100, L500.2500, L101.9900, L501.6710 #### [facility] [address] [place], [address] Absolute Neut 12.6 X10 3/uL High 2.0-7.7 [facility] Comment on above: Performed By: #### L 100.0100, L500.2500, L101.9900, L501.6710 #### [facility] [address] [place], [address] Basophils/100 WBC (Bld) 0.4 % Normal 0-1 [facility] Comment on above: Performed By: #### L 100.0100, L500.2500, L101.9900, L501.6710 #### [facility] [address] [place], [address] Eosinophils/100 WBC (Bld) 0.7 % Normal 0-5 [facility] Comment on above: Performed By: #### L 100.0100, L500.2500, L101.9900, L501.6710 #### [facility] [address] [place], [address] Erythrocyte distribution width (RBC) [Ratio] 13.1 % Normal 11.6-14.6 [facility] Comment on above: Performed By: #### L 100.0100, L500.2500, L101.9900, L501.6710 #### [facility] [address] [place], [address] Hematocrit (Bld) [Volume fraction] 40.6 % Normal 40-54 [facility] Comment on above: Performed By: #### L 100.0100, L500.2500, L101.9900, L501.6710 #### [facility] [address] [place], [address] Hemoglobin (Bld) [Mass/Vol] 14.0 g/dL Normal 13.0-16.5 [facility] Comment on above: Performed By: #### L 100.0100, L500.2500, L101.9900, L501.6710 #### [facility] [address] [place], [address] IG% 1.000 High 0.0-0.9 [facility] Comment on above: Result Comment: IG% - Immature Granulocytes (promyelocytes, myelocytes and metamyelocytes) > 1% indicates that a LEFT SHIFT is Present. Performed By: #### L 100.0100, L500.2500, L101.9900, L501.6710 #### [facility] [address] [place], [address] Lymphocytes/100 WBC (Bld) 12.0 % Low 19-41 [facility] Comment on above: Performed By: #### L 100.0100, L500.2500, L101.9900, L501.6710 #### [facility] [address] [place], [address] MCH (RBC) [Entitic mass] 35.2 pg High 27.0-32.0 [facility] Comment on above: Performed By: #### L 100.0100, L500.2500, L101.9900, L501.6710 #### [facility] [address] [place], [address] MCHC (RBC) [Mass/Vol] 34.5 g/dL Normal 32-36 [facility] Comment on above: Performed By: #### L 100.0100, L500.2500, L101.9900, L501.6710 #### [facility] [address] [place], [address] MCV (RBC) [Entitic vol] 102.0 fL High 80-94 [facility] Comment on above: Performed By: #### L 100.0100, L500.2500, L101.9900, L501.6710 #### [facility] [address] [place], [address] Monocytes/100 WBC (Bld) 2.9 % Normal 0-10 [facility] Comment on above: Performed By: #### L 100.0100, L500.2500, L101.9900, L501.6710 #### [facility] [address] [place], [address] Neutrophils/100 WBC (Bld) 83.0 % High 47-70 [facility] Comment on above: Performed By: #### L 100.0100, L500.2500, L101.9900, L501.6710 #### [facility] [address] [place], [address] Nucleated RBC (Bld) [#/Vol] 0 10*3/uL Normal 0-5 [facility] Comment on above: Performed By: #### L 100.0100, L500.2500, L101.9900, L501.6710 #### [facility] [address] [place], [address] Platelet mean volume (Bld) [Entitic vol] 10.4 fL Normal 6.2-12.0 [facility] Comment on above: Performed By: #### L 100.0100, L500.2500, L101.9900, L501.6710 #### [facility] [address] [place], [address] Platelets (Bld) [#/Vol] 227 10*3/uL Normal 150-450 [facility] Comment on above: Performed By: #### L 100.0100, L500.2500, L101.9900, L501.6710 #### [facility] [address] [place], [address] RBC (Bld) [#/Vol] 3.98 10*6/uL Low 4.6-6.2 [facility] Comment on above: Performed By: #### L 100.0100, L500.2500, L101.9900, L501.6710 #### [facility] [address] [place], [address] RDW SD 50.3 fl High 35.1-43.9 [facility] Comment on above: Performed By: #### L 100.0100, L500.2500, L101.9900, L501.6710 #### [facility] [address] [place], [address] WBC (Bld) [#/Vol] 15.2 10*3/uL High 4.4-11.0 [facility] Comment on above: Performed By: #### L 100.0100, L500.2500, L101.9900, L501.6710 #### [facility] [address] [place], [address] CRPon 06-16-2025 C-REACTIVE PROT 147.00 mg/L High 0.0-3.0 [facility] Comment on above: Performed By: #### L 100.0100, L500.2500, L101.9900, L501.6710 #### [facility] [address] [place], [place], [id number] Carbon dioxide, total [Moles /volume] in Central venous bloodOrdered By: Gilbert [facility] on 01-23-2025 CO2 [Moles/Vol] 21.3 mmol/L 21.0-32.0 [facility] Chloride assayOrdered By: An gel McMorrow on 01-23-2025 Chloride [Moles/Vol] 102 mmol/L 98-108 [facility] Eosinophil percentageOrdered By: Gilbert [facility] on 01-23-2025 Eosinophils/100 WBC (Bld) 0.7 % 0-5 [facility] Erythrocyte Sed Rateon 01-23 SED RATE 14 mm/hr Normal 0-20 [facility] Comment on above: Performed By: #### L 100.0100, L501.1400, L502.0250 #### [facility] [address] [place], [place], [id number] Erythrocyte distribution wid th ratioOrdered By: Gilbert [facility] on 01-23-2025 Erythrocyte distribution width (RBC) [Ratio] 13.1 % 11.6-14.6 [facility] Erythrocyte distribution wid th standard deviationOrdered By: Gilbert [facility] on 01-23-2025 Erythrocyte distribution width (RBC) [Ratio] 50.3 fl High 35.1-43.9 [facility] Erythrocyte sedimentation ra teOrdered By: Gilbert [facility] on 01-23-2025 ESR (Bld) [Velocity] 14 mm/h 0-20 [facility] Glomerular filtration rate ( GFR) estimation/1.73 sq m using serum, plasma, or whole bOrdered By: Gilbert Parkinson on 01-23-2025 GFR/1.73 sq M.predicted among non-blacks MDRD (S/P/Bld) [Vol rate/Area] 49 mL/min/{1.73_m2} Low >60 [facility] Comment on above: mL/min/1.73m2 CKD-EP I Creatinine Equation (2020) Hematocrit Auto (Bld) [Volum e fraction]Ordered By: Gilbert bernice on 01-23-2025 Hematocrit (Bld) [Volume fraction] 40.6 % 40-54 [facility] Hemoglobin measurementOrdere d By: [facility]01-[facility] Hemoglobin (Bld) [Mass/Vol] 14.0 g/dL 13.0-16.5 [facility] Immature granulocytes/100 WB C Auto (Bld)Ordered By: [facility] 01-23-2025 Immature granulocytes/100 WBC (Bld) 1.000 % High 0.0-0.9 [facility] Comment on above: IG% - Immature Granu locytes (promyelocytes, myelocytes and metamyelocytes) > 1% indicates that a LEFT SHIFT is Present. MCV (mean corpuscular volume ) determinationOrdered By: [facility] 01-23-2025 MCV (RBC) [Entitic vol] 102.0 fL High 80-94 [facility] Mean corpuscular hemoglobin (MCH) determinationOrdered By: [facility] 01-23-2025 MCH (RBC) [Entitic mass] 35.2 pg High 27.0-32.0 [facility] Mean corpuscular hemoglobin concentration (MCHC) determinationOrdered By: [facility] 01-23-2025 MCHC (RBC) [Mass/Vol] 34.5 g/dL 32-36 [facility] Mean platelet volume determi nationOrdered By: [facility]01-23-2025 Platelet mean volume (Bld) [Entitic vol] 10.4 fL 6.2-12.0 [facility] Monocyte percentageOrdered B y: [facility]01-23-2025 Monocytes/100 WBC (Bld) 2.9 % 0-10 [facility] Neutrophil percentageOrdered By: [facility]01-23-2025 Neutrophils/100 WBC (Bld) 83.0 % High 47-70 [facility] Nucleated red blood cell per centageOrdered By: [facility]01-23-2025 Nucleated RBC/100 WBC (Bld) [Ratio] 0 % 0-5 [facility] Platelet countOrdered By: Asuncion bernal orr on 01-23-2025 Platelets (Bld) [#/Vol] 227 10*3/uL 150-450 [facility] Potassium measurement (mass/ volume)Ordered By: [facility] 01-23-2025 Potassium (Unsp spec) [Mass/Vol] 4.8 mmol/L 3.3-5.1 [facility] RBC Auto (Bld) [#/Vol]Ordere d By: Gilbert Ward on 01-23-2025 RBC (Bld) [#/Vol] 3.98 10*6/uL Low 4.6-6.2 [facility] Serum creatinine measurement (mass/volume)Ordered By: Gilbert [facility] on 01-23-2025 Creatinine [Mass/Vol] 1.49 mg/dL High 0.70-1.20 [facility] Serum glucose measurement (m ass/volume)Ordered By: Gilbert Parkinson on 01-23-2025 Glucose [Mass/Vol] 118 mg/dL High 70-99 [facility] Serum or plasma C reactive p rotein measurement (mass/volume)Ordered By: Gilbert Parkinson on 01-23-2025 CRP [Mass/Vol] 147.00 mg/L High 0.0-3.0 [facility] Serum or plasma calcium franck urement (mass/volume)Ordered By: Gilbert [facility] on 01-23-2025 Calcium [Mass/Vol] 9.0 mg/dL 7.6-11.0 [facility] Serum or plasma urea nitroge n measurement (mass/volume)Ordered By: Gilbert Tesha on 01-23-2025 Urea nitrogen [Mass/Vol] 33 mg/dL High 4-19 [facility] Sodium levelOrdered By: Kimberley Parkinson on 01-23-2025 Sodium [Moles/Vol] 136 mmol/L 133-145 [facility] Vitamin B12on 01-23-2025 Cobalamin (Vitamin B12) [Mass/Vol] 3081 pg/mL High 180-914 [facility] Comment on above: Performed By: #### L 100.0100, L501.1400, L502.0250 #### [facility] [address] [place], [address] Vitamin B12 ser/plasOrdered By: eSrgey Mathews on 01-23-2025 Cobalamin (Vitamin B12) [Mass/Vol] 3081 pg/mL High 180-914 [facility] White blood cell (WBC) count Ordered By: Gilbert Parkinson on 01-23-2025 WBC (Bld) [#/Vol] 15.2 10*3/uL High 4.4-11.0 [facility] L503.0106on 10-06-2024 Cobalamin (Vitamin B12) [Mass/Vol] 826 pg/mL Normal 180-914 [facility] Comment on above: Performed By: #### L 100.0100, L501.1400, L502.0250 #### [facility] [address] [place], [address] Uric Acidon 10-06-2024 URIC 4.3 mg/dL Normal 3.5-7.2 [facility] Comment on above: Result Comment: The drugs N-Acetylcysteine and Metamizole may falsely depress this assay. Performed By: #### L 100.0100, L501.1400, L502.0250 #### [facility] [address] [place], [address] Absolute lymphocyte countOrd ered By: Sergey Mathews on 10-04-2024 Lymphocytes Auto (Unsp spec) [#/Vol] 1.91 10*3/uL 0.83-4.51 [facility] Absolute neutrophil countOrd ered By: Sergey Mathews on 10-04-2024 Neutrophils (Bld) [#/Vol] 3.0 10*3/uL 2.0-7.7 [facility] Albumin DL <= 20 mg/L (U) [M ass/Vol]Ordered By: Sergey Mathews on 10-04-2024 Urine Random Microalbumin 55.3 mg/L NO RANGE EST. [facility] Automated lymphocyte count a s percentage of total leukocytesOrdered By: Sergey Mathews on 10-04-2024 Lymphocytes/100 WBC Auto (Unsp spec) 32.6 % 19- [facility] BUN/creatinine ratioOrdered By: Sergey Mathews on 10-04-2024 Urea nitrogen/Creatinine [Mass ratio] 15.0 mg/mg 10- [facility] Comment on above: Previous reported re sult: 16.0 RATIOEdited by: AUTOINS on 10/04/24:1835 AMENDED REPORT 10/04/241835 BUN/CRE previously reported as: 16.0 RATIO Basophil percentageOrdered B y: Sergey Mathews on 10-04-2024 Basophils/100 WBC (Bld) 0.7 % 0-1 [facility] Bilirubin, totalOrdered By: Sergey Mathews on 10-04-2024 Bilirubin [Mass/Vol] 0.67 mg/dL 0.00-1.30 [facility] Comment on above: Previous reported re sult: 0.69 mg/dLEdited by: AUTOINS on 10/04/24:1835 AMENDED REPORT 10/04/241835 T BILI previously reported as: 0.69 mg/dL CBC W/Diff, Automatedon 09-11 Absolute Lymph 1.91 X10 3/uL Normal 0.83-4.51 [facility] Comment on above: Performed By: #### L 100.0100, L501.1400, L502.0250 #### [facility] [address] [place], [address] Absolute Neut 3.0 X10 3/uL Normal 2.0-7.7 [facility] Comment on above: Performed By: #### L 100.0100, L501.1400, L502.0250 #### [facility] [address] [place], [address] Basophils/100 WBC (Bld) 0.7 % Normal 0-1 [facility] Comment on above: Performed By: #### L 100.0100, L501.1400, L502.0250 #### [facility] [address] [place], [address] Eosinophils/100 WBC (Bld) 5.8 % High 0-5 [facility] Comment on above: Performed By: #### L 100.0100, L501.1400, L502.0250 #### [facility] [address] [place], [address] Erythrocyte distribution width (RBC) [Ratio] 12.0 % Normal 11.6-14.6 [facility] Comment on above: Performed By: #### L 100.0100, L501.1400, L502.0250 #### [facility] [address] [place], [address] Hematocrit (Bld) [Volume fraction] 45.5 % Normal 40-54 [facility] Comment on above: Performed By: #### L 100.0100, L501.1400, L502.0250 #### [facility] [address] [place], [address] Hemoglobin (Bld) [Mass/Vol] 15.3 g/dL Normal 13.0-16.5 [facility] Comment on above: Performed By: #### L 100.0100, L501.1400, L502.0250 #### [facility] [address] [place], [address] IG% 0.700 Normal 0.0-0.9 [facility] Comment on above: Result Comment: IG% - Immature Granulocytes (promyelocytes, myelocytes and metamyelocytes) > 1% indicates that a LEFT SHIFT is Present. Performed By: #### L 100.0100, L501.1400, L502.0250 #### [facility] [address] [place], [address] Lymphocytes/100 WBC (Bld) 32.6 % Normal 19-41 [facility] Comment on above: Performed By: #### L 100.0100, L501.1400, L502.0250 #### [facility] [address] [place], [address] MCH (RBC) [Entitic mass] 35.4 pg High 27.0-32.0 [facility] Comment on above: Performed By: #### L 100.0100, L501.1400, L502.0250 #### [facility] [address] [place], [address] MCHC (RBC) [Mass/Vol] 33.6 g/dL Normal 32-36 [facility] Comment on above: Performed By: #### L 100.0100, L501.1400, L502.0250 #### [facility] [address] [place], [address] MCV (RBC) [Entitic vol] 105.3 fL High 80-94 [facility] Comment on above: Performed By: #### L 100.0100, L501.1400, L502.0250 #### [facility] [address] [place], [address] Monocytes/100 WBC (Bld) 9.2 % Normal 0-10 [facility] Comment on above: Performed By: #### L 100.0100, L501.1400, L502.0250 #### [facility] [address] [place], [address] Neutrophils/100 WBC (Bld) 51.0 % Normal 47-70 [facility] Comment on above: Performed By: #### L 100.0100, L501.1400, L502.0250 #### [facility] [address] [place], [address] Nucleated RBC (Bld) [#/Vol] 0 10*3/uL Normal 0-5 [facility] Comment on above: Performed By: #### L 100.0100, L501.1400, L502.0250 #### [facility] [address] [place], [address] Platelet mean volume (Bld) [Entitic vol] 10.4 fL Normal 6.2-12.0 [facility] Comment on above: Performed By: #### L 100.0100, L501.1400, L502.0250 #### [facility] [address] [place], [address] Platelets (Bld) [#/Vol] 184 10*3/uL Normal 150-450 [facility] Comment on above: Performed By: #### L 100.0100, L501.1400, L502.0250 #### [facility] [address] [place], [address] RBC (Bld) [#/Vol] 4.32 10*6/uL Low 4.6-6.2 [facility] Comment on above: Performed By: #### L 100.0100, L501.1400, L502.0250 #### [facility] [address] [place], [address] RDW SD 47.3 fl High 35.1-43.9 [facility] Comment on above: Performed By: #### L 100.0100, L501.1400, L502.0250 #### [facility] [address] [place], [address] WBC (Bld) [#/Vol] 5.9 10*3/uL Normal 4.4-11.0 [facility] Comment on above: Performed By: #### L 100.0100, L501.1400, L502.0250 #### [facility] [address] [place], [address] Cholesterol in VLDL [Mass/Vo l]Ordered By: Sergey Mathews on 10-04-2024 VLDL Cholesterol 29 mg/dL 5-40 [facility] Comprehensive Metabolic Prof ilon 10-04-2024 Albumin/Globulin [Mass ratio] 1.3 {ratio} Normal 0.9-2.4 [facility] Comment on above: Performed By: #### L 100.0100, L501.1400, L502.0250 #### [facility] [address] [place], [address] Anion gap [Moles/Vol] 13 mmol/L Normal 5-15 [facility] Comment on above: Performed By: #### L 100.0100, L501.1400, L502.0250 #### [facility] [address] [place], [address] Bilirubin [Mass/Vol] 0.67 mg/dL Normal 0.00-1.30 [facility] Comment on above: Result Comment: AMENDED REPORT 10/04/241835 T BILI previously reported as: 0.69 mg/dL Performed By: #### L 100.0100, L501.1400, L502.0250 #### [facility] [address] [place], [address] BUN/CRE 15.0 RATIO Normal 10-20 [facility] Comment on above: Result Comment: AMENDED REPORT 10/04/241835 BUN/CRE previously reported as: 16.0 RATIO Performed By: #### L 100.0100, L501.1400, L502.0250 #### [facility] [address] [place], [address] Calcium [Mass/Vol] 9.6 mg/dL Normal 7.6-11.0 [facility] Comment on above: Result Comment: AMENDED REPORT 10/04/241835 CA previously reported as: 9.8 mg/dL Performed By: #### L 100.0100, L501.1400, L502.0250 #### [facility] [address] [place], [address] CO2 [Moles/Vol] 23.3 mmol/L Normal 22.0-29.0 [facility] Comment on above: Result Comment: AMENDED REPORT 10/04/241835 CO2 previously reported as: 23.5 mmol/L Performed By: #### L 100.0100, L501.1400, L502.0250 #### [facility] [address] [place], [address] Creatinine [Mass/Vol] 1.1 mg/dL Normal 0.8-1.3 [facility] Comment on above: Performed By: #### L 100.0100, L501.1400, L502.0250 #### [facility] [address] [place], [address] Globulin (S) [Mass/Vol] 3.2 g/dL Normal 2.2-4.2 [facility] Comment on above: Result Comment: AMENDED REPORT 10/04/241835 GLOB previously reported as: 3.3 g/dL Performed By: #### L 100.0100, L501.1400, L502.0250 #### [facility] [address] [place], [address] Glucose [Mass/Vol] 85 mg/dL Normal 70-99 [facility] Comment on above: Result Comment: AMENDED REPORT 10/04/241835 GLU previously reported as: 86 mg/dL Performed By: #### L 100.0100, L501.1400, L502.0250 #### [facility] [address] [place], [address] T PROT 7.3 g/dL Normal 5.9-8.4 [facility] Comment on above: Result Comment: AMENDED REPORT 10/04/241835 T PROT previously reported as: 7.4 g/dL Performed By: #### L 100.0100, L501.1400, L502.0250 #### [facility] [address] [place], [address] Urea nitrogen [Mass/Vol] 17 mg/dL Normal 4-19 [facility] Comment on above: Performed By: #### L 100.0100, L501.1400, L502.0250 #### [facility] [address] [place], [address] Creatinine Unsp time (U) [Ma ss/Vol]Ordered By: Sergey Mathews on 10-04-2024 Creatinine (U) [Mass/Vol] 114.00 mg/dL NO RANGE EST. [facility] Creatinine [Moles/Vol]Ordere d By: Sergey Mathews on 10-04-2024 Creatinine [Mass/Vol] 1.1 mg/dL 0.8-1.3 [facility] Eosinophil percentageOrdered By: Sergey Mathews on 10-04-2024 Eosinophils/100 WBC (Bld) 5.8 % High 0-5 [facility] Erythrocyte distribution wid th ratioOrdered By: Sergey Mathews on 10-04-2024 Erythrocyte distribution width (RBC) [Ratio] 12.0 % 11.6-14.6 [facility] Erythrocyte distribution wid th standard deviationOrdered By: Sergey Mathews on 10-04-2024 Erythrocyte distribution width (RBC) [Entitic vol] 47.3 fL High 35.1-43.9 [facility] Erythrocyte distribution width (RBC) [Ratio] 47.3 fl High 35.1-43.9 [facility] GFR/1.73 sq M.predicted erin g non-blacks MDRD (S/P/Bld) [Vol rate/Area]Ordered By: Sergey Mathews on 10-04-2024 Estimated GFR (MDRD) Non-Af Amer 72 >60 [facility] Comment on above: mL/min/1.73m2 CKD-EP I Creatinine Equation (2020) Glomerular filtration rate ( GFR) estimation/1.73 sq m using serum, plasma, or whole bOrdered By: Sergey Mathews on 10-04-2024 GFR/1.73 sq M.predicted among non-blacks MDRD (S/P/Bld) [Vol rate/Area] 72 mL/min/{1.73_m2} >60 [facility] Comment on above: mL/min/1.73m2 CKD-EP I Creatinine Equation (2020) Hematocrit Auto (Bld) [Volum e fraction]Ordered By: Sergey Mathews on 10-04-2024 Hematocrit (Bld) [Volume fraction] 45.5 % 40-54 [facility] Hemoglobin measurementOrdere d By: Sergey Mathews on 10-04-2024 Hemoglobin (Bld) [Mass/Vol] 15.3 g/dL 13.0-16.5 [facility] Immature granulocytes/100 WB C Auto (Bld)Ordered By: Sergey Mathews on 10-04-2024 Immature granulocytes/100 WBC (Bld) 0.700 % 0.0-0.9 [facility] Comment on above: IG% - Immature Granu locytes (promyelocytes, myelocytes and metamyelocytes) > 1% indicates that a LEFT SHIFT is Present. Laboratory - Chemistry and C hemistry - challengeOrdered By: Sergey Mathews on 10-04-2024 AST [Catalytic activity/Vol] 48 U/L High <38 [facility] Cobalamin (Vitamin B12) [Mass/Vol] 826 pg/mL 180-914 [facility] Lipid Profileon 10-04-2024 Cholesterol in LDL [Mass/Vol] 90 mg/dL Normal 0-130 [facility] Comment on above: Performed By: #### L 100.0100, L501.1400, L502.0250 #### [facility] [address] [place], [address] Low density lipoprotein (LDL ) cholesterol measurementOrdered By: Sergey Mathews on 10-04-2024 Cholesterol in LDL [Mass/Vol] 90 mg/dL 0-130 [facility] Lymphocytes Auto (Unsp spec) [#/Vol]Ordered By: Sergey Mathews on 10-04-2024 Lymphocytes (Bld) [#/Vol] 1.91 10*3/uL 0.83-4.51 [facility] Lymphocytes/100 WBC Auto (Un sp spec)Ordered By: Sergey aMthews on 10-04-2024 Lymphocytes/100 WBC (Bld) 32.6 % 19-41 [facility] MCV (mean corpuscular volume ) determinationOrdered By: Sergey Mathews on 10-04-2024 MCV (RBC) [Entitic vol] 105.3 fL High 80-94 [facility] Mean corpuscular hemoglobin (MCH) determinationOrdered By: Sergey Mathews on 10-04-2024 MCH (RBC) [Entitic mass] 35.4 pg High 27.0-32.0 [facility] Mean corpuscular hemoglobin concentration (MCHC) determinationOrdered By: Sergey Mathews on 10-04-2024 MCHC (RBC) [Mass/Vol] 33.6 g/dL 32-36 [facility] Mean platelet volume determi nationOrdered By: Sergey Mahtews on 10-04-2024 Platelet mean volume (Bld) [Entitic vol] 10.4 fL 6.2-12.0 [facility] Microalb:Creat Ratio,Random URon 10-04-2024 Creatinine [Mass/Vol] 114.00 mg/dL Normal NO RAN GE EST. [facility] Comment on above: Performed By: #### L 100.0100, L501.1400, L502.0250 #### [facility] [address] [place], [address] MALB:CRE 485.1 mg/g CRE Normal [facility] Comment on above: Performed By: #### L 100.0100, L501.1400, L502.0250 #### [facility] [address] [place], [address] MICROALBUMIN,UR 55.3 mg/L Normal NO RANGE EST. [facility] Comment on above: Performed By: #### L 100.0100, L501.1400, L502.0250 #### [facility] [address] [place], [address] Microalbumin/creat ratio urO rdered By: Sergey Mathews on 10-04-2024 Urine Microalbumin/Creatinine Ratio 485.1 mg/g CRE [facility] Monocyte percentageOrdered B y: Sergey Mathews on 10-04-2024 Monocytes/100 WBC (Bld) 9.2 % 0-10 [facility] Neutrophil percentageOrdered By: Sergey Mathews on 10-04-2024 Neutrophils/100 WBC (Bld) 51.0 % 47-70 [facility] Nucleated red blood cell per centageOrdered By: Sergey Mathews on 10-04-2024 Nucleated RBC/100 WBC (Bld) [Ratio] 0 % 0-5 [facility] Platelet countOrdered By: Cody Mathews on 10-04-2024 Platelets (Bld) [#/Vol] 184 10*3/uL 150-450 [facility] RBC Auto (Bld) [#/Vol]Ordere d By: Sergey Mathews on 10-04-2024 RBC (Bld) [#/Vol] 4.32 10*6/uL Low 4.6-6.2 [facility] Random urine creatinine franck urement (mass/volume)Ordered By: Sergey Mathews on 10-04-2024 Creatinine Unsp time (U) [Mass/Vol] 114.00 mg/dL NO RANGE EST. [facility] Serum globulin measurementOr dered By: Sergey Mathews on 10-04-2024 Globulin (S) [Mass/Vol] 3.2 g/dL 2.2-4.2 [facility] Comment on above: Previous reported re sult: 3.3 g/dLEdited by: JORDON on 10/04/24:183 AMENDED REPORT 10/04/241835 GLOB previously reported as: 3.3 g/dL Serum glucose measurement (m ass/volume)Ordered By: Sergey Mathews on 10-04-2024 Glucose [Mass/Vol] 85 mg/dL 70-99 [facility] Comment on above: Previous reported re sult: 86 mg/dLEdited by: JORDON on 10/04/24:1836 AMENDED REPORT 10/04/241835 GLU previously reported as: 86 mg/dL Serum or plasma alanine purvis otransferase (ALT) measurementOrdered By: Sergey Mathews on 10-04-2024 ALT [Catalytic activity/Vol] 43 U/L <47 [facility] Serum or plasma albumin franck urement (mass/volume)Ordered By: Sergey Mathews on 10-04-2024 Albumin [Mass/Vol] 4.1 g/dL 3.4-4.8 [facility] Serum or plasma albumin/glob ulin mass ratioOrdered By: Sergey Mathews on 10-04-2024 Albumin/Globulin [Mass ratio] 1.3 {ratio} 0.9-2.4 [facility] Serum or plasma alkaline sharon sphatase measurementOrdered By: Sergey Mathews on 10-04-2024 ALP [Catalytic activity/Vol] 58 U/L 40-129 [facility] Serum or plasma anion gap de termination (moles/volume)Ordered By: Sergey Mathews on 10-04-2024 Anion gap [Moles/Vol] 13 mmol/L 5-15 [facility] Serum or plasma calcium franck urement (mass/volume)Ordered By: Sergey Mathews on 10-04-2024 Calcium [Mass/Vol] 9.6 mg/dL 7.6-11.0 [facility] Comment on above: Previous reported re sult: 9.8 mg/dLEdited by: JORDON on 10/04/24:1836 AMENDED REPORT 10/04/241835 CA previously reported as: 9.8 mg/dL Serum or plasma cholesterol in HDL measurement (mass/volume)Ordered By: Sergey Mathews on 10-04-2024 Cholesterol in HDL [Mass/Vol] 63 mg/dL >40 [facility] Comment on above: The drugs N-Acetylcy steine and Metamizole may falsely depress this assay. National Cholesterol Education Program (NCEP) guidelines:<40 mg/dL: Low HDL-cholesterol (major risk factor for CHD)>= 60 mg/dL: High HDL-cholesterol (negative risk factor for CHD)HDL-cholesterol is affected by a number of factors, e.g. smoking, exercise, hormones, sex and age. Serum or plasma cholesterol in VLDL measurement (mass/volume)Ordered By: Sergey Mathews on 10-04-2024 Cholesterol in VLDL [Mass/Vol] 29 mg/dL 5-40 [facility] Serum or plasma cholesterol measurement (mass/volume)Ordered By: Sergey Mathews on 10-04-2024 Cholesterol [Mass/Vol] 182 mg/dL <201 [facility] Comment on above: Cholesterol level, D esirable <200 mg/dLBorderline high cholesterol 200-239 mg/dLHigh cholesterol >=240 mg/dLRecommendations of the NCEP Adult Treatment Panel for the following risk-cutoff thresholds for the [place] population. Serum or plasma creatinine m easurement (moles/volume)Ordered By: Sergey Mathews on 10-04-2024 Creatinine [Moles/Vol] 1.1 mg/dL 0.8-1.3 [facility] Serum or plasma potassium me asurementOrdered By: Sergey Mathews on 10-04-2024 Potassium [Moles/Vol] 4.9 mmol/L 3.3-5.1 [facility] Serum or plasma sodium measu rement (moles/volume)Ordered By: Sergey Mathews on 10-04-2024 Sodium [Moles/Vol] 139 mmol/L 133-145 [facility] Serum or plasma urea nitroge n measurement (mass/volume)Ordered By: Sergey Mathews on 10-04-2024 Urea nitrogen [Mass/Vol] 17 mg/dL 4-19 [facility] Serum or plasma uric acid me asurement (mass/volume)Ordered By: Sergey Mathews on 10-04-2024 Urate [Mass/Vol] 4.3 mg/dL 3.5-7.2 [facility] Comment on above: The drugs N-Acetylcy steine and Metamizole may falsely depress this assay. Total proteinOrdered By: [place] Mathews on 10-04-2024 Protein [Mass/Vol] 7.3 g/dL 5.9-8.4 [facility] Comment on above: Previous reported re sult: 7.4 g/dLEdited by: JORDON on 10/04/24:1836 AMENDED REPORT 10/04/241835 T PROT previously reported as: 7.4 g/dL Triglycerides measurementOrd ered By: Sergey Mathews on 10-04-2024 Triglyceride [Mass/Vol] 144 mg/dL <199 [facility] Comment on above: The drugs N-Acetylcy steine and Metamizole may falsely depress this assay. Normal range: <150 mg/dLBorderline High: 150-199 mg/dLHigh: 200-499 mg/dLVery High: >500 mg/dL Urine albumin measurement wi detection limit of 20 mg/L or less (mass/volume)Ordered By: Sergey Mathews on 10-04-2024 Albumin DL <= 20 mg/L (U) [Mass/Vol] 55.3 mg/L NO RANGE EST. [facility] White blood cell (WBC) count Ordered By: Sergey Mathews on 10-04-2024 WBC (Bld) [#/Vol] 5.9 10*3/uL 4.4-11.0 [facility] Urgent Care Visit Reporton 1 09-03-2023 Urgent Care Visit Report [facility] 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 No [id number] taken to assist. COVID-19 test yesterday was [...] awake and (more content not included)... Normal [facility] Comprehensive Metabolic Prof ilon 02-23-2024 Albumin [Mass/Vol] 3.5 g/dL Normal 3.2-5.0 [facility] Comment on above: Performed By: #### L 500.4100, L500.4050, L502.0250 #### [facility] [address] [place], [address] Albumin/Globulin [Mass ratio] 0.8 {ratio} Low 0.9-2.4 [facility] Comment on above: Performed By: #### L 500.4100, L500.4050, L502.0250 #### [facility] [address] [place], [address] ALK P 62 U/L Normal 45-117 [facility] Comment on above: Performed By: #### L 500.4100, L500.4050, L502.0250 #### [facility] [address] [place], [address] ALT [Catalytic activity/Vol] 54 U/L Normal 16-61 [facility] Comment on above: Performed By: #### L 500.4100, L500.4050, L502.0250 #### [facility] [address] [place], [address] AST [Catalytic activity/Vol] 47 U/L High 15-37 [facility] Comment on above: Performed By: #### L 500.4100, L500.4050, L502.0250 #### [facility] [address] [place], [address] Bilirubin [Mass/Vol] 0.70 mg/dL Normal 0.20-1.00 [facility] Comment on above: Result Comment: For patients on eltrombopag therapy, use of Dimension [place] TBIL is not recommended. Performed By: #### L 500.4100, L500.4050, L502.0250 #### [facility] [address] [place], [address] BUN/CRE 13.8 RATIO Normal 10-20 [facility] Comment on above: Performed By: #### L 500.4100, L500.4050, L502.0250 #### [facility] [address] [place], [address] CA,Total 9.1 mg/dL Normal 8.5-10.1 [facility] Comment on above: Performed By: #### L 500.4100, L500.4050, L502.0250 #### [facility] [address] [place], [address] Chloride [Moles/Vol] 106 mmol/L Normal 98-107 [facility] Comment on above: Performed By: #### L 500.4100, L500.4050, L502.0250 #### [facility] [address] [place], [address] CO2 [Moles/Vol] 28.0 mmol/L Normal 21.0-32.0 [facility] Comment on above: Performed By: #### L 500.4100, L500.4050, L502.0250 #### [facility] [address] [place], [address] Creatinine [Mass/Vol] 1.16 mg/dL Normal 0.70-1.30 [facility] Comment on above: Result Comment: The validity of the calculated GFR GFRAA in patients over 70 years has not been determined. Clinical correlation is essential. Performed By: #### L 500.4100, L500.4050, L502.0250 #### [facility] [address] [place], [address] EST GFR - AA 79 mL/min Normal >60 [facility] Comment on above: Result Comment: Afri can [place] GFR Calc Performed By: #### L 500.4100, L500.4050, L502.0250 #### [facility] [address] [place], [address] GAP 4 Low 5-15 [facility] Comment on above: Performed By: #### L 500.4100, L500.4050, L502.0250 #### [facility] [address] [place], [address] GFR/1.73 sq M.predicted among non-blacks MDRD (S/P/Bld) [Vol rate/Area] 65 mL/min/{1.73_m2} Normal >60 [facility] Comment on above: Result Comment: Non- GFR Calc Performed By: #### L 500.4100, L500.4050, L502.0250 #### [facility] [address] [place], [address] Globulin (S) [Mass/Vol] 4.3 g/dL High 2.2-4.2 [facility] Comment on above: Performed By: #### L 500.4100, L500.4050, L502.0250 #### [facility] [address] [place], [address] Glucose [Mass/Vol] 91 mg/dL Normal 74-106 [facility] Comment on above: Performed By: #### L 500.4100, L500.4050, L502.0250 #### [facility] [address] [place], [address] Potassium [Moles/Vol] 4.5 mmol/L Normal 3.5-5.1 [facility] Comment on above: Performed By: #### L 500.4100, L500.4050, L502.0250 #### [facility] [address] [place], [address] Sodium [Moles/Vol] 138 mmol/L Normal 136-145 [facility] Comment on above: Performed By: #### L 500.4100, L500.4050, L502.0250 #### [facility] [address] [place], [address] T PROT 7.8 g/dL Normal 6.4-8.2 [facility] Comment on above: Performed By: #### L 500.4100, L500.4050, L502.0250 #### [facility] [address] [place], [address] Urea nitrogen [Mass/Vol] 16 mg/dL Normal 7-18 [facility] Comment on above: Performed By: #### L 500.4100, L500.4050, L502.0250 #### [facility] [address] [place], [address] Lipid Profileon 02-23-2024 Cholesterol [Mass/Vol] 168 mg/dL Normal 200 [facility] Comment on above: Result Comment: <200 mg/dL Desirable 200-240 mg/dL Borderline >240 mg/dL High Risk Performed By: #### L 500.4100, L500.4050, L502.0250 #### [facility] [address] [place], [address] Cholesterol in HDL [Mass/Vol] 58 mg/dL Normal [facility] Comment on above: Result Comment: The drugs N-Acetylcysteine and Metamizole may falsely depress this assay. Reference Range HDL <40 mg/dL Low HDL Cholesterol HDL >or= 60 mg/dL High HDL Cholesterol Performed By: #### L 500.4100, L500.4050, L502.0250 #### [facility] [address] [place], [address] Cholesterol in LDL [Mass/Vol] 51 mg/dL Normal 0-130 [facility] Comment on above: Performed By: #### L 500.4100, L500.4050, L502.0250 #### [facility] [address] [place], [address] Cholesterol in VLDL [Mass/Vol] 59 mg/dL High 5-40 [facility] Comment on above: Performed By: #### L 500.4100, L500.4050, L502.0250 #### [facility] [address] [place], [address] Triglyceride [Mass/Vol] 297 mg/dL High [facility] Comment on above: Result Comment: The drugs N-Acetylcysteine and Metamizole may falsely depress this assay. Serum Triglycerides Reference Interval Normal <150 mg/dL Borderline high 150 - 199 mg/dL High 200 - 499 mg/dL Very High > or = 500 mg/dL Performed By: #### L 500.4100, L500.4050, L502.0250 #### [facility] [address] [place], [address] Microalb:Creat Ratio,Random URon 02-23-2024 Creatinine [Mass/Vol] 152.00 mg/dL Normal NO RAN GE EST. [facility] Comment on above: Performed By: #### L 500.4100, L500.4050, L502.0250 #### [facility] [address] [place], [address] MALB:CRE 25.7 mg/g CRE Normal <30 mg/g CRE [facility] Comment on above: Performed By: #### L 500.4100, L500.4050, L502.0250 #### [facility] [address] [place], [address] MICROALBUMIN,UR 39.0 mg/L Normal NO RANGE EST. [facility] Comment on above: Performed By: #### L 500.4100, L500.4050, L502.0250 #### [facility] [address] [place], [address] Laboratory - Chemistry and C hemistry - challengeOrdered By: Sergey Mathews on 08-26-2023 Cobalamin (Vitamin B12) [Mass/Vol] 858 pg/mL 211-911 [facility] No Panel InformationOrdered By: Sergey Mathews on 08-26-2023 Folate 22.10 ng/mL 3.1-55.4 [facility] Comment on above: Slight Hemolysis, Re sult may be falsely increased. Absolute lymphocyte countOrd ered By: Sergey Mathews on 08-24-2023 Lymphocytes Auto (Unsp spec) [#/Vol] 1.80 10*3/uL 0.83-4.51 [facility] Basophil percentageOrdered B y: Sergey Mathews on 08-24-2023 Basophils/100 WBC (Bld) 1.2 % 0-1 [facility] Bilirubin [Mass/Vol] 0.70 mg/dL 0.20-1.00 [facility] Comment on above: For patients on eltr ombopag therapy, use of Dimension [place] TBIL is not recommended. Chloride [Moles/Vol] 109 mmol/L 98-107 [facility] Cholesterol [Mass/Vol] 173 mg/dL <200 [facility] Comment on above: <200 mg/dL Desirable 200-240 mg/dL Borderline >240 mg/dL High Risk Eosinophils/100 WBC (Bld) 7.0 % 0-5 [facility] Glucose [Mass/Vol] 91 mg/dL 74-106 [facility] Neutrophils (Bld) [#/Vol] 2.3 10*3/uL 2.0-7.7 [facility] Neutrophils/100 WBC (Bld) 46.1 % 47-70 [facility] Potassium [Moles/Vol] 4.6 mmol/L 3.5-5.1 [facility] Protein [Mass/Vol] 7.7 g/dL 6.4-8.2 [facility] Sodium [Moles/Vol] 141 mmol/L 136-145 [facility] Triglyceride [Mass/Vol] 172 mg/dL <199 [facility] Comment on above: The drugs N-Acetylcy steine and Metamizole may falsely depress this assay.Serum Triglycerides Reference Interval Normal <150 mg/dL Borderline high 150 - 199 mg/dL High 200 - 499 mg/dL Very High > or = 500 mg/dL WBC (Bld) [#/Vol] 5.0 10*3/uL 4.4-11.0 [facility] Blood erythrocytes count (nu mber/volume)Ordered By: Sergey Mathews on 08-24-2023 RBC (Bld) [#/Vol] 4.65 10*6/uL 4.6-6.2 [facility] Blood hemoglobin measurement (mass/volume)Ordered By: Sergey Mathews on 08-24-2023 Hemoglobin (Bld) [Mass/Vol] 16.5 g/dL 13.0-16.5 [facility] Blood lymphocytes/100 leukoc ytesOrdered By: Sergey Mathews on 08-24-2023 Lymphocytes/100 WBC (Bld) 36.1 % 19-41 [facility] Blood monocytes/100 leukocyt esOrdered By: Sergey Mathews on 08-24-2023 Monocytes/100 WBC (Bld) 9.2 % 0-10 [facility] Blood platelet mean volumeOr dered By: Sergey Mathews on 08-24-2023 Platelet mean volume (Bld) [Entitic vol] 10.2 fL 6.2-12.0 [facility] Determination of erythrocyte mean corpuscular volume (MCV)Ordered By: Sergey Mathews on 08-24-2023 MCV (RBC) [Entitic vol] 103.4 fL 80-94 [facility] Hematocrit Auto (Bld) [Volum e fraction]Ordered By: Sergey Mathews on 08-24-2023 Hematocrit (Bld) [Volume fraction] 48.1 % 40-54 [facility] - Chemistry and C hemistry - challengeOrdered By: Sergey Mathews on 08-24-2023 ALP [Catalytic activity/Vol] 65 U/L 45-117 [facility] ALT [Catalytic activity/Vol] 54 U/L 16-61 [facility] Amylase [Catalytic activity/Vol] 207 U/L 15-85 [facility] CO2 [Moles/Vol] 27.0 mmol/L 21.0-32.0 [facility] Globulin (S) [Mass/Vol] 4.1 g/dL 2.2-4.2 [facility] Urea nitrogen/Creatinine [Mass ratio] 10.4 mg/mg 10-20 [facility] - Hematology and Cell countsOrdered By: Sergey Mathews on 08-24-2023 Erythrocyte distribution width (RBC) [Entitic vol] 47.0 fL 35.1-43.9 [facility] Erythrocyte distribution width (RBC) [Ratio] 12.4 % 11.6-14.6 [facility] Immature granulocytes/100 WBC (Bld) 0.400 % 0.0-0.9 [facility] Comment on above: IG% - Immature Granu locytes (promyelocytes, myelocytes and metamyelocytes) > 1% indicates that a LEFT SHIFT is Present. MCH (RBC) [Entitic mass] 35.5 pg 27.0-32.0 [facility] Nucleated RBC/100 WBC (Bld) [Ratio] 0 % 0-5 [facility] MCHC Auto (RBC) [Mass/Vol]Or dered By: Sergey Mathews on 08-24-2023 MCHC (RBC) [Mass/Vol] 34.3 g/dL 32-36 [facility] No Panel InformationOrdered By: Sergey Mathews on 08-24-2023 Estimated GFR (MDRD) Amer 88 mL/min >60 [facility] Comment on above: GFR Calc Estimated GFR (MDRD) Non-Af Amer 73 mL/min >60 [facility] Comment on above: Non- GFR Calc Prostate Specific Antigen Screen 0.94 ng/mL 0.00-4.00 [facility] Comment on above: This test was perfor med using the TPSA assay method for theBuzzient chemistry system. Values obtained with differentassay methods cannot be used interchangably.When changing PSA assays in the course of monitoring apatient, additional sequential testing should be carriedout to confirm baseline values. Platelets bldOrdered By: Marissa Mathews on 08-24-2023 Platelets (Bld) [#/Vol] 188 10*3/uL 150-450 [facility] Serum or plasma albumin franck urement (mass/volume)Ordered By: Sergey Mathews on 08-24-2023 Albumin [Mass/Vol] 3.6 g/dL 3.2-5.0 [facility] Serum or plasma albumin/glob ulin mass ratioOrdered By: Sergey Mathews on 08-24-2023 Albumin/Globulin [Mass ratio] 0.9 {ratio} 0.9-2.4 [facility] Serum or plasma calcium franck urement (mass/volume)Ordered By: Sergey Mathews on 08-24-2023 Calcium [Mass/Vol] 9.1 mg/dL 8.5-10.1 [facility] Serum or plasma cholesterol in HDL measurement (mass/volume)Ordered By: Sergey Mathews on 08-24-2023 Cholesterol in HDL [Mass/Vol] 66 mg/dL >40 [facility] Comment on above: The drugs N-Acetylcy steine and Metamizole may falsely depress this assay. Reference Range HDL <40 mg/dL Low HDL Cholesterol HDL >or= 60 mg/dL High HDL Cholesterol Serum or plasma cholesterol in VLDL measurement (mass/volume)Ordered By: Sergey Mathews on 08-24-2023 Cholesterol in VLDL [Mass/Vol] 34 mg/dL 5-40 [facility] Serum or plasma creatinine m easurement (mass/volume)Ordered By: Sergey Mathews on 08-24-2023 Creatinine [Mass/Vol] 1.06 mg/dL 0.70-1.30 [facility] Comment on above: The validity of the calculated GFR & GFRAA in patients over 70 years has not been determined. Clinical correlation is essential. Serum or plasma low density lipoprotein (LDL) cholesterol measurement (mass/volume)Ordered By: Sergey Mathews on 08-24-2023 Cholesterol in LDL [Mass/Vol] 73 mg/dL 0-130 [facility] Serum or plasma urea nitroge n measurement (mass/volume)Ordered By: Sergey Mathews on 08-24-2023 Urea nitrogen [Mass/Vol] 11 mg/dL 7-18 [facility] Thin prep Papanicolaou smear with manual screeningOrdered By: Sergey Mathews on 08-24-2023 Thin prep Papanicolaou smear with manual screening 51 U/L 15-37 [facility] Thin prep Papanicolaou smear with manual screening 5 5-15 [facility] Thin prep Papanicolaou smear with manual screening 116.0 mg/L NO RANGE EST. [facility] CNOVon 10-08-2022 CNOV Office Visit (ESTEBANS ) LORNA VIGIL ([id number]) 1950 M Date Time Provider Department 10/08/22 11:00 AM MCKENNA PINO During your visit today, we recorded the following information about you: Temperature Pulse Blood pressure Weight 97.9 degrees 73/minute 148/96 104.7 kg Mckenna Pino PA-C 10/08/2022 12:41 PM Signed FOLLOW UP VISIT - ENDOS[facility] NO.: [id number] DATE OF SERVICE: 10/08/2022 : 1950 REFERRING [...] 2022 1:30 AM Gross examination performed at [facility], [facility] [place] [address] Performing Lab Diagnostic interpretation performed at [facility], [facility] [place] [address] [id number] Lead Blender: Subhash Garcia M.D. Addendum A. Immunohistochemical stain [...] which included preparing to see the patient, [id number] patient care, completing clinical documentation, obtaining and/or reviewing separately obtained history, counseling and educating the patient/family/caregiv er, independently interpreting results (not separately reported), and communicating results to the patient/family/caregiv er. ANITHA Tran PA-C 10/08/2022 11:19 AM Signed -Follow up with PCP for blood pressure The following instructions are important for you related to your office visit today with the [facility]. INSTRUCTIONS FOLLOWING A NORMAL COLONOSCOPY I discussed with you the findings of your colonoscopy. No worrisome abnormalities were noted, however due to suboptimal bowel prep the surgeon has recommended a repeat colonoscopy in 1-2 years. Will consider a split bowel prep regimen at that t (more content not included)... Normal [facility] SURGICAL PATHOLOGYon 023 Addendum A. Immunohistochemic al [...] been determined by the performing laboratory within [facility] s [facility] Pathology and Laboratory Medicine [place] ([facility], [facility], [facility], [facility], or [facility]) in a manner consistent with CLIA requirements. One or more of these tests have not been cleared or approved by the FDA. [facility] is regulated under CLIA as qualified to perform high-complexity testing. These tests are used for clinical purposes. They should not be regarded as investigational or for research. Positive and negative controls stain appropriately. [facility] Case Report Surgical Pathology Report Case: [id number] Authorizing Provider: Rand Wong MD Collected: 10/01/2022 12:42 PM Ordering Location: Ambulatory Surgery Received: 10/01/2022 04:15 PM Pathologist: Ayde Yousif MD Specimens: A) - ANTRUM (STOMACH) BIOPSY, Antral bx for H/H B) - ESOPHAGOGASTRIC JUNCTION BIOPSY [facility] Diagnosis Comment A. Immunohistochemic al stain for Helicobacter pylori will be performed on block A1 and reported in an addendum. B. Due to the presence of focal active esophagitis, immunohistochemical stains for CMV, HSV I/II, and stain for PAS/D will be performed on block B1 and reported in an addendum. [facility] FINAL DIAGNOSIS A. Stomach, antrum, biopsy: - Gastric antral and oxyntic mucosa with reactive gastropathy. - No morphologic evidence of Helicobacter pylori organisms (see comment). B. Esophagogastric junction, biopsy: - Focal active esophagitis with reactive epithelial changes (see comment). [facility] Gross Description A. ANTRUM (STOMACH) BIOPSY Received [...] 2022 1:30 AM Gross examination performed at [facility], [facility] [place] [address] Performing Lab Diagnostic interpretation performed at [facility], [facility] [place] [id number] CLIA# [id number] Lead Blender: Subhash Garcia M.D. [facility] COLONOSCOPY SCREENINGon 09-11 [facility] Colonoscopyon 10-01-2022 Colonoscopy [facility] Gastrointestinal Endoscopy Patient Name: Lorna Vigil Procedure Date: 10/01/2022 12:18 PM Date of : 1950 Admit Type: Outpatient Age: 72 Gender: Male Note Status: Finalized Procedure: Colonoscopy Indications: Screening for colorectal malignant neoplasm Providers: Rand Wong MD Patient Profile: Refer to note in patient chart for documentation of history and physical. Last Colonoscopy: 2010. Referring Physician: Mckenna Pino (pa) (Referring MD) Medicines: See the other procedure note for [...] malignant neoplasm of colon CPT copyright 2020 [employer]. All rights reserved. The codes documented in this report are preliminary and upon sales account executive review may be revised to meet current compliance requirements. Attending Participation: I personally performed the entire procedure. Scope In: 12:52:46 PM Scope Out: 1:08:49 PM MD Rand Basurto MD 10/01/2022 1:14:08 PM This report has been signed electronically by Rand Wong MD Number of Addenda: 0 Note Initiated On: 10/01/2022 12:18 PM Estimated Blood Loss: Estimated blood loss: none. Normal [facility] EGD DIAGNOSTICon 10-01-2022 [facility] HISTORY PHYSICALon 3 HISTORY PHYSICAL HNO ID: [id number] Author: Rand Wong MD Service: General Surgery Author Type: Physician Type: HANDP Filed: 10/01/2022 11:33 AM Note Text: HISTORY AND PHYSICAL Lorna Vigil [...] Take 300 mg by mouth once daily. woapyercxq-apypgzt-jgf phor 75 mg-3 %- 3 % KGtd [...] entered by the nurse and reviewed by ms Nursing Notes: Elsie Zavala LPN 09/03/2022 2:23 [...] well rhonda (more content not included)... Normal [facility] NURSING PROGon 10-01-2022 NURSING PROG HNO ID: [id number] Author: Gloria Johnson RN Service: ? Author Type: Registered Nurse Type: Nursing Progress Note Filed: 10/01/2022 1:30 PM Note Text: Patient received in phase II via cart left lateral position, eyes closed but open to verbal stimuli, skin warm and dry, respirations regular and unlabored, denies abdominal pain or nausea. Resting comfortably on left side. Normal [facility] NURSING PROG HNO ID: [id number] Author: Gloria Johnson RN Service: ? Author Type: Registered Nurse Type: Nursing Progress Note Filed: 10/01/2022 12:16 PM Note Text: Dr Wong notified most recent bp 190/96, has been given 500ml of Lactated Ringers, ok to proceed with procedure, ordered to keep IV flowing wide open until procedure. remains at bedside. Normal [facility] NURSING PROG HNO ID: [id number] Author: Gloria Johnson RN Service: ? Author [...] and bolus with fluid, will monitor. Normal [facility] SURGICAL PATHOLOGYon 023 ADDENDUM 1: Normal [facility] Comment on above: Order Comment: Speci men Type: TISSUE SPECIMEN Ordering Facility: [facility] Address: [address] [place] [address] [place] [address] Result Comment: A. I mmunohistochemical stain for [...] been determined by the performing laboratory within [facility]???s [facility]aseem [facility] Pathology and Laboratory Medicine [place] ([facility], [facility], [facility], [facility], or [facility]) in a manner consistent with CLIA requirements. [...] 12:50 PM Performed By: #### S #### [facility] CLIA [id number] [address] [place] [address] [place] CASE REPORT Normal [facility] Comment on above: Order Comment: Chandler turner Type: TISSUE SPECIMEN Ordering Facility: [facility] Address: [address] [id number] Result Comment: Surg ica Pathology Report Case: [id number] Authorizing Provider: Rand Wong MD Collected: 10/01/2022 12:42 PM Ordering Location: Ambulatory Surgery Received: 10/01/2022 04:15 PM Pathologist: Ayde Yousif MD Specimens: A) - ANTRUM (STOMACH) BIOPSY, Antral bx for H/H B) - ESOPHAGOGASTRIC JUNCTION BIOPSY Performed By: #### S #### [facility] CLIA [id number] [address] [place] [address] OF [facility] DIAGNOSIS COMMENT Normal [facility] Comment on above: Order Comment: Chandler turner Type: TISSUE SPECIMEN Ordering Facility: [facility] Address: [address] [place], [place] [address] Result Comment: A. I mmunohistochemical stain for Helicobacter pylori will be performed on block A1 and reported in an addendum. B. Due to the presence of focal active esophagitis, immunohistochemical stains for CMV, HSV I/II, and stain for PAS/D will be performed on block B1 and reported in an addendum. Performed By: #### S #### [facility] CLIA [id number] [address] [place] [address] FINAL DIAGNOSIS Normal [facility] Comment on above: Order Comment: Speci men Type: TISSUE SPECIMEN Ordering Facility: [facility] Address: [address] [place] [address] Result Comment: A. S tomach, antrum, biopsy: - Gastric antral and oxyntic mucosa with reactive gastropathy. - No morphologic evidence of Helicobacter pylori organisms (see comment). B. Esophagogastric junction, biopsy: - Focal active esophagitis with reactive epithelial changes (see comment). Performed By: #### S #### [facility] CLIA [id number] [address] [place] [address] FINAL PERFORMING LAB Normal [facility] Comment on above: Order Comment: Speci men Type: TISSUE SPECIMEN Ordering Facility: [facility] Address: [address] [place] [address] Result Comment: Diag nostic interpretation performed at [facility], [address] [place] [address] CLIA# [id number] Lead Blender: Subhash Garcia M.D. Performed By: #### S #### [facility] CLIA [id number] [address] [place] [address] OF [facility] GROSS DESCRIPTION Normal [facility] Comment on above: Order Comment: Speci men Type: TISSUE SPECIMEN Ordering Facility: [facility] Address: [address] [address] Result Comment: A. A NTRUM (STOMACH) BIOPSY [...] 2022 1:30 AM Gross examination performed at [facility], [address] [place] [address] Performed By: #### S #### [facility] CLIA [id number] [address] [place] [address] [id number] [address] [place] Upper GI endoscopyon 023 Upper GI endoscopy [facility] Gastrointestinal Endoscopy Patient Name: Lorna Vigil [...] future endoscopies Procedure Code(s): --- Professional --- 79548, Esophagogastroduodenos copy, flexible, transoral; with biopsy, single or multiple Diagnosis Code(s): --- Professional --- R12, Heartburn K44.9, Diaphragmatic hernia without obstruction or gangrene K31.89, Other diseases of stomach and duodenum CPT copyright 2020 [employer]. All rights reserved. The codes documented in this report are preliminary and upon sales account executive review may be revised to meet current compliance requirements. Attending Participation: I personally performed the entire procedure. Scope In: 12:40:37 PM Scope Out: 12:46:22 PM MD Rand Basurto MD 10/01/2022 12:51:44 PM This report has been signed electronically by Rand Wong MD Number of Addenda: 0 Note Initiate (more content not included)... Normal [facility] CNOVon 09-03-2022 CNOV Office Visit (GENSWS ) MUSALORNA Heath ([id number]) 1950 M Date Time Provider Department 09/03/22 1:30 PM MCKENNA PINO During your visit today, we recorded the following information about you: Temperature Pulse Blood pressure Weight 98.3 degrees 64/minute 124/86 104.4 kg Height 1.854 m Mckenna Pino PA-C 09/04/2022 12:36 PM Signed HISTORY AND PHYSICAL Lorna Vigil 1950 REFERRING [...] Take 300 mg by mouth once daily. whdqukiblv-emzruqi-iep phor 75 mg-3 %- 3 % KGtd [...] entered by the nurse and reviewed by ms Nursing Notes: Elsie Zavala LPN 09/03/2022 2:23 [...] Zavala LPN (more content not included)... Normal [facility] Absolute lymphocyte counton 08-06-2022 Lymphocytes Auto (Unsp spec) [#/Vol] 1.91 10*3/uL 0.83-4.51 [facility] Work Phone: Basophil percentageon 2021 Basophils/100 WBC (Bld) 0.9 % 0-1 [facility] Work Phone: [phone] Bilirubin [Mass/Vol] 0.60 mg/dL 0.20-1.00 [facility] Work Phone: [phone] Comment on above: For patients on eltr ombopag therapy, use of Dimension [place] TBIL is not recommended. Chloride [Moles/Vol] 106 mmol/L 98-107 [facility] Work Phone: Cholesterol [Mass/Vol] 192 mg/dL <200 [facility] Work Phone: [phone] Comment on above: <200 mg/dL Desirable 200-240 mg/dL Borderline >240 mg/dL High Risk Eosinophils/100 WBC (Bld) 4.2 % 0-5 [facility] Work Phone: [phone] Glucose [Mass/Vol] 91 mg/dL 74-106 [facility] Work Phone: Neutrophils (Bld) [#/Vol] 2.8 10*3/uL 2.0-7.7 [facility] Work Phone: Neutrophils/100 WBC (Bld) 50.4 % 47-70 [facility] Work Phone: Potassium [Moles/Vol] 4.3 mmol/L 3.5-5.1 [facility] Work Phone: Protein [Mass/Vol] 7.6 g/dL 6.4-8.2 [facility] Work Phone: Sodium [Moles/Vol] 143 mmol/L 136-145 [facility] Work Phone: [phone] Triglyceride [Mass/Vol] 172 mg/dL <199 [facility] Work Phone: Comment on above: The drugs N-Acetylcy steine and Metamizole may falsely depress this assay.Serum Triglycerides Reference Interval Normal <150 mg/dL Borderline high 150 - 199 mg/dL High 200 - 499 mg/dL Very High > or = 500 mg/dL WBC (Bld) [#/Vol] 5.5 10*3/uL 4.4-11.0 [facility] Work Phone: Blood erythrocytes count (nu mber/volume)on 08-06-2022 RBC (Bld) [#/Vol] 4.90 10*6/uL 4.6-6.2 [facility] Work Phone: Blood hemoglobin measurement (mass/volume)on 08-06-2022 Hemoglobin (Bld) [Mass/Vol] 17.2 g/dL 13.0-16.5 [facility] Work Phone: Blood lymphocytes/100 leukoc yteson 08-06-2022 Lymphocytes/100 WBC (Bld) 34.9 % 19-41 [facility] Work Phone: Blood monocytes/100 leukocyt eson 08-06-2022 Monocytes/100 WBC (Bld) 8.9 % 0-10 [facility] Work Phone: [phone] Blood platelet mean volumeon 08-06-2022 Platelet mean volume (Bld) [Entitic vol] 10.1 fL 6.2-12.0 [facility] Work Phone: [phone] Determination of erythrocyte mean corpuscular volume (MCV)on 08-06-2022 MCV (RBC) [Entitic vol] 103.1 fL 80-94 [facility] Work Phone: [phone] Hematocrit Auto (Bld) [Volum e fraction]on 08-06-2022 Hematocrit (Bld) [Volume fraction] 50.5 % 40-54 [facility] Work Phone: [phone] Laboratory - Chemistry and C hemistry - challengeon 08-06-2022 ALP [Catalytic activity/Vol] 67 U/L 45-117 [facility] Work Phone: [phone] ALT [Catalytic activity/Vol] 46 U/L 16-61 [facility] Work Phone: [phone] CO2 [Moles/Vol] 31.0 mmol/L 21.0-32.0 [facility] Work Phone: [phone] Globulin (S) [Mass/Vol] 3.9 g/dL 2.2-4.2 [facility] Work Phone: [phone] Urea nitrogen/Creatinine [Mass ratio] 12.6 mg/mg 10-20 [facility] Work Phone: [phone] Laboratory - Hematology and Cell countson 08-06-2022 Erythrocyte distribution width (RBC) [Entitic vol] 47.2 fL 35.1-43.9 [facility] Work Phone: [phone] Erythrocyte distribution width (RBC) [Ratio] 12.3 % 11.6-14.6 [facility] Work Phone: [phone] Immature granulocytes/100 WBC (Bld) 0.700 % 0.0-0.9 [facility] Work Phone: [phone] Comment on above: IG% - Immature Granu locytes (promyelocytes, myelocytes and metamyelocytes) > 1% indicates that a LEFT SHIFT is Present. MCH (RBC) [Entitic mass] 35.1 pg 27.0-32.0 [facility] Work Phone: Nucleated RBC/100 WBC (Bld) [Ratio] 0 % 0-5 [facility] Work Phone: [phone] MCHC Auto (RBC) [Mass/Vol]on 08-06-2022 MCHC (RBC) [Mass/Vol] 34.1 g/dL 32-36 [facility] Work Phone: No Panel Informationon 08-06 Estimated GFR (MDRD) Amer 91 mL/min >60 [facility] Work Phone: [phone] Comment on above: GFR Calc Estimated GFR (MDRD) Non-Af Amer 75 mL/min >60 [facility] Work Phone: Comment on above: Non- GFR Calc Urine Microalbumin/Creatinine Ratio 61.1 mg/g CRE <30 [facility] Work Phone: Platelets bldon 08-06-2022 Platelets (Bld) [#/Vol] 211 10*3/uL 150-450 [facility] Work Phone: [phone] Serum or plasma albumin franck urement (mass/volume)on 08-06-2022 Albumin [Mass/Vol] 3.7 g/dL 3.2-5.0 [facility] Work Phone: [phone] Serum or plasma albumin/glob ulin mass ratioon 08-06-2022 Albumin/Globulin [Mass ratio] 0.9 {ratio} 0.9-2.4 [facility] Work Phone: [phone] Serum or plasma calcium franck urement (mass/volume)on 08-06-2022 Calcium [Mass/Vol] 9.1 mg/dL 8.5-10.1 [facility] Work Phone: [phone] Serum or plasma cholesterol in HDL measurement (mass/volume)on 08-06-2022 Cholesterol in HDL [Mass/Vol] 67 mg/dL >40 [facility] Work Phone: [phone] Comment on above: The drugs N-Acetylcy steine and Metamizole may falsely depress this assay. Reference Range HDL <40 mg/dL Low HDL Cholesterol HDL >or= 60 mg/dL High HDL Cholesterol Serum or plasma cholesterol in VLDL measurement (mass/volume)on 08-06-2022 Cholesterol in VLDL [Mass/Vol] 34 mg/dL 5-40 [facility] Work Phone: Serum or plasma creatinine m easurement (mass/volume)on 08-06-2022 Creatinine [Mass/Vol] 1.03 mg/dL 0.70-1.30 [facility] Work Phone: Comment on above: The validity of the calculated GFR & GFRAA in patients over 70 years has not been determined. Clinical correlation is essential. Serum or plasma low density lipoprotein (LDL) cholesterol measurement (mass/volume)on 08-06-2022 Cholesterol in LDL [Mass/Vol] 91 mg/dL 0-130 [facility] Work Phone: Serum or plasma urea nitroge n measurement (mass/volume)on 08-06-2022 Urea nitrogen [Mass/Vol] 13 mg/dL 7-18 [facility] Work Phone: Serum or plasma uric acid me asurement (mass/volume)on 08-06-2022 Urate [Mass/Vol] 4.1 mg/dL 3.5-7.2 [facility] Work Phone: Comment on above: The drugs N-Acetylcy steine and Metamizole may falsely depress this assay. Thin prep Papanicolaou smear with manual screeningon 08-06-2022 Thin prep Papanicolaou smear with manual screening 40 U/L 15-37 [facility] Work Phone: [phone] Thin prep Papanicolaou smear with manual screening 6 5-15 [facility] Work Phone: [phone] Thin prep Papanicolaou smear with manual screening 129.0 mg/L NO RANGE EST. [facility] Work Phone: Urine creatinine measurement (mass/volume)on 08-06-2022 Creatinine (U) [Mass/Vol] 211.00 mg/dL NO RANGE EST. [facility] Work Phone: Whole blood hemoglobin A1c/t otal hemoglobin ratio (mass fraction)on 08-06-2022 HbA1c (Bld) [Mass fraction] 4.9 % 3.8-5.6 [facility] Work Phone: Comment on above: Normal < 5.7 % Predi abetic 5.7 - 6.4 % Diabetic >or= 6.5 % Please note range changes. Vital Signs Date Time Vital Sign Value Performing Clinician Facility 07-04-2024 11:16-0500 Body height 185.[address] Sergey Mathews MD Work Phone: [facility] 07-04-2024 11:16-0500 Body mass index (BMI) [Ratio] 31.4 kg/m2 Dr. Sergey Mathews MD Work Phone: [facility] 07-04-2024 11:16-0500 Body temperature 98.5 [degF] Dr. Sergey Mathews MD Work Phone: [facility] 07-04-2024 11:16-0500 Body weight 107.[address] Sergey Mathews MD Work Phone: [facility] 07-04-2024 11:16-0500 Diastolic blood pressure 80 mm[Hg] Dr. Sergey Mathews MD Work Phone: [facility] 07-04-2024 11:16-0500 Heart rate 65 /min Dr. Sergey Mathews MD Work Phone: [facility] 07-04-2024 11:16-0500 Respiratory rate 16 /min Dr. Sergey Mathews MD Work Phone: [facility] 07-04-2024 11:16-0500 SaO2% (BldA) [Mass fraction] 98 % Dr. Sergey Mathews MD Work Phone: [facility] 07-04-2024 11:16-0500 Systolic blood pressure 156 mm[Hg] Dr. Sergey Mathews MD Work Phone: [facility] 10-08-2022 10:48-0500 Body temperature 97.9 [degF] Mckenna Alvarez PA-C Work Phone: [facility] 10-08-2022 10:48-0500 Body weight 104.69 kg Mckenna Alvarez PA-C Work Phone: [facility] 10-08-2022 10:48-0500 Diastolic blood pressure 96 mm[Hg] Mckenna Alvarez PA-C Work Phone: [facility] 10-08-2022 10:48-0500 Heart rate 73 /min Mckenna Alvarez PA-C Work Phone: [facility] 10-08-2022 10:48-0500 SaO2% (BldA) [Mass fraction] 99 % Mckenna Alvarez PA-C Work Phone: [facility] 10-08-2022 10:48-0500 Systolic blood pressure 148 mm[Hg] Mckenan Alvarez PA-C Work Phone: [facility] 10-01-2022 13:48-0500 Diastolic blood pressure 95 mm[Hg] Rand Wong MD Work Phone: [facility] 10-01-2022 13:48-0500 Heart rate 65 /min Rand Wong MD Work Phone: [facility] 10-01-2022 13:48-0500 Respiratory rate 16 /min Rand Wong MD Work Phone: [facility] 10-01-2022 13:48-0500 SaO2% (BldA) [Mass fraction] 95 % Rand Wong MD Work Phone: [facility] 10-01-2022 13:48-0500 Systolic blood pressure 195 mm[Hg] Rand Wong MD Work Phone: [facility] 10-01-2022 11:33-0500 Body temperature 96.6 [degF] Rand Wong MD Work Phone: [facility] 10-01-2022 11:33-0500 Body weight 104.4 kg Rand Wong MD Work Phone: [facility] 09-03-2022 13:27-0500 Body height 185.4 cm Mckenna [place] PA-C Work Phone: [facility] 09-03-2022 13:27-0500 Body temperature 98.29 [degF] Mckenna Alvarez PA-C Work Phone: [facility] 09-03-2022 13:27-0500 Body weight 104.42 kg Mckenna [place] PA-C Work Phone: [facility] 09-03-2022 13:27-0500 Diastolic blood pressure 86 mm[Hg] Mckenna [place] PA-C Work Phone: [facility] 09-03-2022 13:27-0500 Heart rate 64 /min Mckenna [place] PA-C Work Phone: [facility] 09-03-2022 13:27-0500 SaO2% (BldA) [Mass fraction] 99 % Mckenna Alvarez PA-C Work Phone: [facility] 09-03-2022 13:27-0500 Systolic blood pressure 124 mm[Hg] Mckenna [place] PA-C Work Phone: [facility] Encounters Encounter Date Encounter Type Care Provider Facility Start: 01-23-2025 End: 01-23-[address] Sergey Mathews MD Work Phone: [facility] Work Phone: Start: 01-23-2025 End: 01-23-2025 Patient encounter procedure [facility] APPLICATION INTEGRATION SPECIALIST-C -Laboratory [facility] Start: 01-23-2025 End: 01-23-2025 ambulatory [facility] Facility:[facility] Start: 10-04-2024 End: 10-04-[address] Sergey Mathews MD Work Phone: [facility] Work Phone: Start: 10-04-2024 End: 10-04-[address] Sergey Mathews MD -Laboratory, [facility] Start: 10-04-2024 End: 10-04-2024 ambulatory Sergey Mathews Facility:[facility] Start: 07-04-2024 End: 07-04-2024 Patient encounter procedure Sd Patino PA [facility] Work Phone: Start: 07-04-2024 End: 07-04-2024 ambulatory Sergey Mathews Facility:[facility] Start: 02-23-2024 End: 02-23-2024 ambulatory Sergey Mathews Facility:[facility] Start: 08-26-2023 End: 08-26-2023 ambulatory [facility] Work Phone: Start: 08-26-2023 End: 08-26-2023 Patient encounter procedure [facility] Start: 08-24-2023 End: 08-24-2023 [facility] Work Phone: Start: 08-24-2023 End: 08-24-2023 Patient encounter procedure [facility] Start: 10-08-2022 End: 10-09-2022 ambulatory Mckenna Pino Facility:[facility] Start: 10-08-2022 End: 10-08-2022 Patient encounter procedure Mckenna Pino PA-C Work Phone: General Surgery Comment on above: Gastroesophageal ref lux disease with esophagitis without hemorrhage (Primary Dx); Erythematous gastropathy; Hiatal hernia Start: 10-01-2022 End: 10-01-2022 ambulatory Rand Wong Facility:[facility] Start: 10-01-2022 End: 10-01-2022 Subsequent hospital visit by physician Rand Wong MD Work Phone: Ambulatory Surgery Comment on above: Special screening fo r malignant neoplasms, colon [Z12.11] Start: 09-03-2022 End: 09-03-2022 ambulatory Mckenna Pino Facility:[facility] Start: 09-03-2022 End: 09-03-2022 Patient encounter procedure Mckenna ZHANG-C Work Phone: General Surgery Comment on above: Encounter for screen ing for malignant neoplasm of colon (Primary Dx); Bilateral upper abdominal discomfort Start: 08-06-2022 End: 08-06-2022 ambulatory [facility] Work Phone: Start: 08-06-2022 End: 08-06-2022 Patient encounter procedure [facility]-Laboratory, [facility] Procedures Date Procedure Procedure Detail Performing Clinician Start: 10-04-2024 Urine microalbumin/creatinine ratio measurement Dr. Sergey Mathews MD Work Phone: Start: 10-01-2022 Level iv surg pathology gross&microscopic exam Rand Wong MD Work Phone: Start: 10-01-2022 Esophagogastroduodenoscopy transoral diagnostic Mckenna ZHANG-Delia Work Phone: Start: 10-01-2022 Colonoscopy flx dx w/collj spec when pfrmd Mckennaeugene Pino PA-C Work Phone: Start: 10-01-2022 Colonoscopy Mckennaeugene Pino PA-C Work Phone: Start: 05-21-2011 Colonoscopy Mckennaeugene Pino PA-Delia Work Phone: Plan of Treatment Date Care Activity Detail Author Start: 10-01-2023 Colonoscopy COLONOSCOPY [facility] Start: 10-01-2023 COLORECTAL CANCER SCREENING COLORECTAL CANCER SCREENING [facility] Start: 04-10-2023 Covid-19 Vaccine ( season) Covid-19 Vaccine ( season) [facility] Start: 04-10-2023 Influenza vaccination Influenza Vacc ine (#1) [facility] Start: 08-10-2022 ADVANCE DIRECTIVE DISCUSSION ADVANCE DIRECTIVE DISCUSSION [facility] Start: 08-10-2022 DEPRESSION ASSESSMENT DEPRESSION ASS ESSMENT [facility] Start: 05-21-2021 Colonoscopy COLONOSCOPY [facility] Start: 05-21-2021 COLORECTAL CANCER SCREENING COLORECTAL CANCER SCREENING [facility] Start: 2014 PNEUMOCOCCAL: 65+ (1 - PCV) PNEUMOCOCCAL: 65+ (1 - PCV) [facility] Start: 2009 RSV Vaccine (1 - 1-d ose 60+ series) RSV Vaccine (1 - 1-dose 60+ series) [facility] Start: 1999 SHINGRIX VACCINE (1 of 2) SHINGRIX V ACCINE (1 of 2) [facility] Start: 1994 COLOGUARD (FIT-DNA) COLOGUARD (FIT-D NA) [facility] Start: [address] COLONOGRAPHY [facility] Start: 1994 DIABETES SCREEN DIABETES SCREEN [facility] Start: 1994 Diabetes Screening Diabetes Screenin g [facility] Start: 1994 FECAL OCCULT BLOOD FECAL OCCULT BLOO D [facility] Start: 1994 SIGMOIDOSCOPY SIGMOIDOSCOPY [facility] Start: 1984 Lipid 1996 panel - S diomedes or Plasma Lipid Screening [facility] Start: 1984 LIPID SCREEN LIPID SCREEN [facility] Start: 1968 Urine microalbumin profile [facility] Start: 1967 HEPATITIS C SCREENING HEPATITIS C SC REENING [facility] Start: 1949 ABDOMINAL AORTIC ANE URYSM SCREENING ABDOMINAL AORTIC ANEURYSM SCREENING [facility] Immunizations Immunization Date Immunization Notes Care Provider Rubia bazzi 05-09-2022 influenza virus vaccine, unspecified formulation Rand Wong MD Work Phone: [facility] 10-31-2020 Covid (Moderna) [facility] 10-03-2020 [facility] Payers Date Payer Category Payer Self-pay [id number] 2022 Medicare SELF 2022 Private Health Insurance [id number] 2021 Private Health Insurance [id number] 2014 Medicare [id number] 2014 Medicare MEDICARE MEDICAR E A AND B [id number] 2014-Present [phone] [place] [address] Medicare [id number] Unknown [id number] Unknown [id number] Unknown [id number] Unknown [id number] Social History Date Type Detail Facility Start: 10-19-2020 Tobacco smoking stat [facility] Unknown if ever smoked [facility] Start: 1950 Sex Assigned At Male [facility] Start: 09-03-2022 Tobacco smoking stat [facility] Never smoked tobacco [facility] Start: 09-03-2022 End: 10-01-2022 Tobacco use and exposure Smokeless tobacco non-user [facility] Start: 09-03-2022 Alcohol intake Current drinke r of alcohol (finding) [facility] Start: 1950 Sex Assigned At Not on file [facility] Start: 10-19-2020 End: 10-01-2022 Tobacco smoking status NHIS Ex-smoker [facility] End: 08-10-1988 History of tobacco use Current smoker [facility] End: 08-10-1988 History of tobacco use Cigarette Smoker [facility] Start: 09-03-2022 End: 10-01-2022 Cigarettes smoked current (pack per day) - Reported 1 [facility] Start: 10-01-2022 End: 10-08-2022 Alcohol intake Ex-drinker (finding) [facility] Start: 10-01-2022 Alcohol Comment 1-2 beers a day [facility] Start: 09-03-2022 End: 10-01-2022 Tobacco use panel [facility] National Score (1-10 0), lower number is lower risk 34 [facility] Start: 10-16-2024 Sex Male (finding) [facility] Clinical Notes 09-03-2022 to 10-08-2022 Patient InstructionsMckenna Pino PA-C - 10/08/2022 10:59 AM Gloria Johnson RN - 10/01/2022 1:18 PM Gloria Johnson RN - 10/01/2022 12:21 PM Gloria Johnson RN - 10/01/2022 12:15 PM EST Note Date & Type Note Facility 10-08-2022 Note HNO ID: [id number] Author: Mckenna Pino PA-C Service: ? Author Type: Physician Power Wheelchair Mechanic Type: Progress Notes Filed: 10/08/2022 12:41 PM Note Text: FOLLOW UP VISIT - ENDOSCOPY NAME: Lorna Joe [facility] NO.: [id number] DATE OF SERVICE: 10/08/2022 : 1950 REFERRING [...] 2022 1:30 AM Gross examination performed at [facility], [address] [place] [address] Performing Lab Diagnostic interpretation performed at [facility], [facility] [address]# [id number] Lead Blender: Subhash Garcia M.D. Addendum A. Immunohistochemical stain [...] which included preparing to see the patient, [id number] patient care, completing clinical documentation, obtaining and/or reviewing separately obtained history, counseling and educating the patient/family/caregiver, independently interpreting results (not separately reported), and communicating results to the patient/family/caregiver. Mckenna Pino PA-C [facility] 10-08-2022 Instructions Mckenna Pino PA-C - 10/08/2022 11:19 AM EST -Follow up with PCP for blood pressure The following instructions are important for you related to your office visit today with the [facility] Surgeons. INSTRUCTIONS FOLLOWING A NORMAL [...] you should contact our office immediately @ [phone] and ask to be transferred to the General Surgery department. documented in this encounter [facility] 10-08-2022 History of Present illness Narrative FOLLOW UP VISIT [facility] END[facility] NO.: [id number] DATE OF SERVICE: 10/08/2022 : 1950 REFERRING [...] 2022 1:30 AM Gross examination performed at [facility], [address] [place] [address] Performing Lab Diagnostic interpretation performed at [facility], [address] [address] [address] CLIA# [id number] Lead Blender: Subhash Garcia M.D. Addendum A. Immunohistochemical stain [...] which included preparing to see the patient, [id number] patient care, completing clinical documentation, obtaining and/or reviewing separately obtained history, counseling and educating the patient/family/caregiver, independently interpreting results (not separately reported), and communicating results to the patient/family/caregiver. Mckenna Pino PA-C documented in this encounter [facility] 10-01-2022 Note HNO ID: [id number] Author: Gloria Johnson RN Service: ? Author Type: Registered Nurse Type: Nursing Progress Note Filed: 10/01/2022 12:22 PM Note Text: Dr Wong aware of most recent bp is 203/103, will plan to proceed with procedure. [facility] 10-01-2022 Nurse Note Patient received in [...] fluid, will monitor. documented in this encounter [facility] 10-01-2022 History and physical note UPDATED [...] Take 300 mg by mouth once daily. osqzsxldpn-eqdhdjv-voxywnw 75 mg-3 %- 3 % KGtd omeprazole [...] entered by the nurse and reviewed by ms Nursing Notes: Elsie Zavala LPN 09/03/2022 2:23 [...] patient was offered a surgery/procedure at a [facility] facility. I have counseled the patient [...] Mckenna Pino PA-C HISTORY AND PHYSICAL Lorna Vigil [...] Take 300 mg by mouth once daily. qjpjwflvbr-zgvuxru-pcuevgc 75 mg-3 %- 3 % KGtd omeprazole [...] entered by the nurse and reviewed by ms Nursing Notes: Elsie Zavala LPN 09/03/2022 2:23 [...] patient was offered a surgery/procedure at a [facility] facility. I have counseled the patient [...] Mckenna Pino PA-C documented in this encounter [facility] 09-03-2022 Note HNO ID: [id number] Author: Mckenna Pino PA-C Service: ? Author Type: Physician Power Wheelchair Mechanic Type: Progress Notes Filed: 09/04/2022 12:36 PM [...] Take 300 mg by mouth once daily. jokipxlgos-xlwbzwc-wuhwqih 75 mg-3 %- 3 % KGtd omeprazole [...] entered by the nurse and reviewed by ms Nursing Notes: Elsie Zavala LPN 09/03/2022 2:23 [...] and person. VIT (more content not included)... [facility] 09-03-2022 Nurse Note REVIEW OF SYSTEMS: [...] Elsie Zavala LPN documented in this encounter [facility] 09-03-2022 History of Present illness Narrative HISTORY AND PHYSICAL Lorna Joe Musa 1950 [...] Take 300 mg by mouth once daily. qcqwyfvyfb-zqlyyrk-dqtbrjl 75 mg-3 %- 3 % KGtd omeprazole [...] entered by the nurse and reviewed by ms Nursing Notes: Elsie Zavala LPN 09/03/2022 2:23 [...] patient was offered a surgery/procedure at a [facility] facility. I have counseled the patient [...] Mckenna Pino PA-C documented in this encounter [facility] Evaluation note No assessment inform ation available [facility] Work Phone: Evaluation note Diagnosis Encounter for screening for malignant neoplasm of colon- Primary Special screening for malignant neoplasms, colon Bilateral upper abdominal discomfort Abdominal pain, right upper quadrant [facility] Diagnosis Gastroesophageal reflux disease with esophagitis without hemorrhage- Primary Erythematous gastropathy Unspecified gastritis and gastroduodenitis without mention of hemorrhage Hiatal hernia Diaphragmatic hernia without mention of obstruction or gangrene [facility] Diagnosis Screening for colon cancer- Primary Special screening for malignant neoplasms, colon Special screening for malignant neoplasms, colon Upper abdominal pain Abdominal pain, other specified site Gastroesophageal reflux disease, unspecified whether esophagitis present [facility] encounter [facility] Outpatient Procedure (Routine) - Closed Specialty Diagnoses / Procedures Referred By Timothy harris Referred To Contact [facility] Diagnoses Special screening for malignant neoplasms, colon Upper abdominal pain Gastroesophageal reflux disease, unspecified whether esophagitis present Procedures EGD DIAGNOSTIC ESOPHAGOGASTRODUODENOSC OPY TRANSORAL DIAGNOSTIC Mckenna Pino PA-C [address] [place] [address] [facility] [place] [address] Referral ID Status Reason Start Date Expiration Date V isits Requested Visits Authorized [id number] Closed Auto-Generate d Referral 09/03/2022 09/03/2023 1 1 * Outpatient Procedure (Routine) - Closed Specialty Diagnoses / Procedures Referred By Timothy harris Referred To Contact [facility] [place] Diagnoses Special screening for malignant neoplasms, colon Upper abdominal pain Gastroesophageal reflux disease, unspecified whether esophagitis present Procedures COLONOSCOPY SCREENING COLONOSCOPY FLX DX W/COLLJ SPEC WHEN PFRMD Mckenna Pino PA-C [address] [place] [address] [facility] [place] [address] Referral ID Status Reason Start Date Expiration Date V isits Requested Visits Authorized [id number] Closed Auto-Generate d Referral 09/03/2022 09/03/2023 1 1 [facility])No reason for [facility] Work [facility]: Reason for visit Narrative* Outpatient Procedure (Routine) - Closed Specialty Diagnoses / Procedures Referred By Contac t Referred To Contact [facility] Diagnoses Special screening for malignant neoplasms, colon Upper abdominal pain Gastroesophageal reflux disease, unspecified whether esophagitis present Procedures EGD DIAGNOSTIC ESOPHAGOGASTRODUODENOSC OPY TRANSORAL DIAGNOSTIC Mckenna Pino PA-C [address] [place] [address] [facility] [address] [address] [place] [address] Referral ID Status Reason Start Date Expiration Date V isits Requested Visits Authorized [id number] Closed Auto-Generate d Referral 09/03/2022 09/03/2023 1 1 [facility] Family History No Family History Records Found Relationship Condition Age at Onset Recorded Date/T melvin father Coronary artery disease 60 brother Hypertension Unknown Summary Purpose Advance Directives No Advanced Directives Records FoundNo Advanced Directives Records Found Medications Administered Section Inactive Administered Medications - up to 3 most recent administrations Medication Order MAR Action Action Date Dose Rate Site benzocaine 20% 1 [place] (TOPEX) 1 [place], TOPICAL, DIRECTED, Starting on Thu10/01/22 at 1330, [...] or prosecute any alcohol or drug abuse patient.[facility] the event this information is protected by the Federal Confidentiality of Alcohol and Drug Abuse Patient Records regulations: The Federal rules restrict any use of the information to criminally investigate or prosecute any alcohol or drug abuse patient.[facility] the event this information is protected by the Federal Confidentiality of Alcohol and Drug Abuse Patient Records regulations: The Federal rules restrict any use of the information to criminally investigate or prosecute any alcohol or drug abuse patient.[facility] Reason for Visit (unrecogniz ed section and content) Reason Comments Consult Colonoscopy/ EGD Reason Comments Follow Up EGD and colonoscopy follow up Care Teams (unrecognized sec tion and content) [employer] Relationship Specialty Start Date End Date Sergey Mathews(Historical)MD PCP - General Family Medicine 08/26/22 [employer] Relationship Specialty Start Date End Date Sergey Mathews(Historical), PCP - General Family Medicine 08/26/22 [employer]house [employer] Associate Relationship Specialty Start Date End Date Sergey [...] July 04, 2024 End: July 04, 2024 Sd Patino PA, PA Attending Provider Active Start: July 04, [...] October 04, 2024 End: October 04, 2024 Team Status: Active Member Role Status Dates Dr. Sergey Mathews MD Primary Care Provider Active Team Status: Inactive Member Role Status Dates Dr. Sergey Mathews MD Primary Care Provider Active Start: January 23, 2025 End: January 23, 2025 Gilbert Parkinson APPLICATION INTEGRATION SPECIALIST, APPLICATION INTEGRATION SPECIALIST-C Attending Provider Active Start: January 23, 2025 End: January 23, 2025 (unrecognized sect ion and content) No Status Records FoundNo Status Records Found INFORMATION SOURCE (unrecogn ized section and content) DATE CREATED AUTHOR 10/14/2022 [facility] DATE CREATED AUTHOR AUTHOR'S ORGANIZ ATION 01/29/2025 [facility] FOR RECORDS PERTAINING TO PATIENTS WHO [...] BE BASED ON THE PRIMARY CLINICAL RECORDS. [employer] provides no warranty or guarantee of the accuracy or completeness of information in this document.
== END | disposition home or self-care (01) ==
LOC: MFPLAB 09:01
PROVIDERS: PCP Family Medicine; Visit Provider Family Medicine
DX: S37.009A Unspecified injury of unspecified kidney, initial encounter (principal); X58.XXXA Exposure to other specified factors, initial encounter
CPT/HCPCS: 36415; 80048

== ENCOUNTER → 2025-02-01 | Outpatient (CLI) | payer MEDICARE, OTHER, SELFPAY ==
--- NOTE | 2025-02-01 14:39 | RAD_ITS ---
PROCEDURE: CHEST PA AND LATERAL 02/01/2025 REASON FOR EXAM: DECREASED SODIUM LEVEL TECHNIQUE: CHEST PA AND LATERAL COMPARISON: 10/05/2020 FINDINGS: Bibasilar subsegmental atelectasis. No focal consolidation. No pleural effusion or pneumothorax. Cardiac silhouette is within normal limits. RAD/Chest PA and Lateral IMPRESSION: No focal consolidation. Reading Location: [id number]
[2025-02-01 18:04] LABS: Urine Sodium < 20 mmol/L (Not Establ.)
[2025-02-01 18:23] LABS: Anion Gap 13 (5-15); BUN 22 mg/dL (4-19); BUN/Creat Ratio 14.7 RATIO (10-20); Calcium,Total 9.1 mg/dL (7.6-11.0); Carbon Dioxide 21.1 mmol/L (21.0-32.0); Chloride 98 mmol/L (98-108); EST Glomerular Filtration Rate 48 (>60); Glucose 98 mg/dL (70-99); Potassium 4.8 mmol/L (3.3-5.1); Sodium Level 133 mmol/L (133-145)
[2025-02-01 23:14] LABS: Osmolality, Urine 363 mOsm/KG
[2025-02-01 23:15] LABS: Osmolality, Serum 291 mOsm/KG (280-301)
== END | disposition home or self-care (01) ==
PROVIDERS: PCP Family Medicine; Referring Provider Family Medicine; Visit Provider Family Medicine
DX: E87.1 Hypo-osmolality and hyponatremia (principal)
CPT/HCPCS: 36415; 71046; 80048; 83930; 83935; 84300

== ENCOUNTER → 2025-02-21 | Outpatient (CLI) | payer MEDICARE, OTHER, SELFPAY ==
[2025-02-21 17:52] LABS: Hematocrit 38.6 % (40-54); Hemoglobin 12.7 g/dL (13.0-16.5); Immature Granulocytes Count 0.190 X10^3/uL (0.0-0.0); Mean Corp Hgb Conc 32.9 g/dL (32-36); Mean Corpuscular Volume 104.3 fL (80-94); Mean Platelet Vol. 9.9 fl (6.2-12.0); NRBC Flagged by Analyzer 0 % (0-5); Platelet Count 457 K/mm3 (150-450); RBC Distribution Width CV 13.6 % (11.6-14.6); RBC Distribution Width SD 51.8 fl (35.1-43.9); Red Blood Count 3.70 M/mm3 (4.6-6.2); White Blood Count 12.6 K/mm3 (4.4-11.0)
[2025-02-21 18:22] LABS: AST(SGOT) 29 U/L (<=37); Alanine Aminotransfer ALT/SGPT 13 U/L (<=46); Albumin, Serum 3.5 g/dL (3.4-4.8); Alkaline Phosphatase 80 U/L (40-129); Anion Gap 13 (5-15); BUN 14 mg/dL (4-19); BUN/Creat Ratio 11.2 RATIO (10-20); Calcium,Total 9.2 mg/dL (7.6-11.0); Carbon Dioxide 21.4 mmol/L (21.0-32.0); Chloride 102 mmol/L (98-108); Globulin 4.1 g/dL (2.2-4.2); Glucose 96 mg/dL (70-99); Potassium 4.6 mmol/L (3.3-5.1)
[2025-02-21 18:38] LABS: Creatinine, Urine (random) 379.00 mg/dL (39.00-259.00); Microalbumin,Random Urine 25.9 mg/L (<20 mg/L)
== END | disposition home or self-care (01) ==
LOC: MFPLAB 14:45
PROVIDERS: PCP Family Medicine; Visit Provider Family Medicine
DX: I10 Essential (primary) hypertension (principal)
CPT/HCPCS: 36415; 80053; 82043; 82570; 85025